=== PATIENT | male | born 1950 | race Caucasian/White ===

== ENCOUNTER 2016-09-02 09:28 | Inpatient (IN) | payer OTHER ==
[2016-09-02] VITALS (22 sets, daily range): BP systolic 107–152; BP diastolic 43–69; PULSE 72–98; RESP 12–20; O2SAT 96–100
[~2016-09-02] VITALS: Ht 188 cm; Wt 96.3 kg
[~2016-09-02 09:28] MED LIST: ASCO100089 PO; ASPI-973 PO; ATOR20TA PO; CALC0.257 PO; CLOP75TA3 PO; ERGO400T3 PO; EZET10TA PO; FEG324 PO; GLIM1TAB PO; LEVO88TA4 PO; LOSA25TA2 PO; METO25TA99 PO; OMEG-38 PO; PANT40TA3 PO; PUMP160C PO; UBID1CAP52 PO; WARF5TAB7 PO
--- NOTE | 2016-09-02 09:43 | ED.REPORT ---
HPI-Abd Pain M 40 and Over Date of Service Sep 02, 2016 ED Provider: Beto Lees DO 65 year old male with a history of GI bleeds presents to the ER complaining of two days of black stool. Associated symptoms include lightheadedness, SOB, productive cough, and foul smelling breath. Symptoms are similar to those associated with prior GI bleed. Typically he has one bowel movement daily, and reports one this morning with loose stool, though he states this is baseline. He also reports that a precancerous lesion was indicated in an upper endoscopy procedure in 2014. Daily medications include aspirin, Plavix, and heparin. Nursing Notes Stated Complaint: POSSIBLE GI BLEED Chief Complaint: Male Abdominal Pain Nursing Notes Reviewed: Yes Allergies: Coded Allergies: No Known Allergies (Unverified , 02/27/16) Scheduled Ascorbic Acid (Vitamin C) 1,000 Mg Tab.chew 1,000 MG PO DAILY Aspirin (Aspirin) 81 Mg Tablet 81 MG PO DAILY Atorvastatin (Lipitor) 20 Mg Tablet 20 MG PO HS Calcitriol (Rocaltrol) 0.25 Mcg Capsule 0.25 MG PO Mon, Mon, Mon Clopidogrel Bisulfate (Plavix) 75 Mg Tablet 75 MG PO DAILY Ergocalciferol (Vitamin D2) (Vitamin D) 400 Unit Tablet 400 UNIT PO DAILY Ezetimibe (Zetia) 10 Mg Tablet 10 MG PO HS Ferrous Gluconate (Ferrous Gluconate) 324 Mg Tab 324 MG PO BID Glimepiride (Glimepiride) 1 Mg Tablet 0.5 MG PO DAILYAC Levothyroxine (Levothyroxine) 88 Mcg Tablet 88 MCG PO DAILY Losartan Potassium (Cozaar) 25 Mg Tablet 25 MG PO BID Metoprolol Succinate ER (Metoprolol Succinate ER) 25 Mg Tab.er.24h 25 MG PO BID [place]-3/Dha/Epa/Fish Oil (Fish Oil 1,000 mg Softgel) 1 Each Capsule 1 EACH PO am [place]-3/Dha/Epa/Fish Oil (Fish Oil 1,000 mg Softgel) 1 Each Capsule 2 EACH PO daily pm Pantoprazole DR (Pantoprazole DR) 40 Mg Tablet.dr 40 MG PO DAILY Pumpkin Seed Oil/Saw [place] (Saw [place] 160 mg Softgel) 160 Mg Capsule 160 MG PO DAILY Ubidecarenone/Vit E Acetate (Co Q-10 100 mg Softgel) 1 Each Capsule 2 TAB PO DAILY Warfarin Sodium (Warfarin Sodium) 5 Mg Tablet 5 MG PO ASDIRECTED take on sun,,thurs Warfarin Sodium (Warfarin Sodium) 5 Mg Tablet 7.5 MG PO ASDIRECTED take on mon, wed, fri, sat General Time Seen by MD: 09:42 Chief Complaint Other (Black Stool) Hx Obtained From: Patient Arrived By: Ambulance, Walk-in Sudden in Onset?: No Onset Occurred: 2 days ago Symptom Duration: Since onset Similar Sx Previous: Yes Past Medical History Past Medical History 1. Atrial fibrillation. 2. Diabetes mellitus type II. 3. Hyperlipidemia. 4. Hypertension. 5. Hypothyroidism. 6. Depression and anxiety. 7. Hodgkin's lymphoma in remission. 8. Essential tremor. 9. Skin cancer. Reports: Cancer, Coronary artery disease Past Surgical History 1. 21 cardiac stents. 2. CABG (2001). 3. [address] Shravan's aortic valve replacement. 4. Gamma knife radiation for essential tremor. Family History Mother with breast cancer. Father with diabetes mellitus type II. Sister who is healthy. 3 daughters one of which has an essential tremor. Smoking History Former Smoker Social History Alcohol Use: "Social" Other Social History: Good social support, , Local resident Ambulatory Status Independent Review of Systems Review of Systems Note: +Foul Smelling Breath Respiratory: Reports: Prod cough, clear, Shortness of breath Cardiovascular: Denies: Chest pain GI: Reports: Bloody/tarry stool, Melena, Denies: Abdominal pain, Diarrhea, Nausea, Vomiting Complete sys rev & neg: except as marked. Neurologic: Reports: Dizziness, Lightheaded Physical Exam Initial Vital Signs Vital Signs (First) Date Time Temp Pulse Resp B/P Pulse Ox O2 Delivery O2 Flow Rate FiO2 09/02/16 09:34 36.4 86 18 139/62 100 Room Air Initial VS: Reviewed Head / Eyes: Atraumatic, Normocephalic Neck: Supple, Non-tender, Full range of motion Extremities: Vascular intact, Neuro intact, No swelling, No tenderness Skin: Warm, Dry, No cyanosis General/Constitutional: Awake, Alert, Well developed, Well nourished Respiratory / Chest: Breath sounds NL, Breath sounds = bilat, No respiratory distress, No rales, No rhonchi, No wheezing Cardiovascular: Heart rate NL, Regular rhythm, Heart sounds NL, Peripheral circulation NL Prominent click across precordium. Abdomen: Soft, Non-tender, No guarding, No rebound, No distention Rectal for Blood: Positive: Blood - occult heme +, Melena present Interpretation & Diagnostics Lab Results Interpretation Result Diagram: 09/02/16 1130 09/02/16 0956 Test 09/02/16 09:56 09/02/16 11:30 White Blood Count 12.1th/mm3 (3.8-10.1) Red Blood Count 3.13mil/mm3 (4.40-5.80) Mean Corpuscular Volume 93.0fL (81-100) Mean Corpuscular Hemoglobin 29.4pg (27.0-35.0) Mean Corpuscular Hemoglobin Concent 31.6% (32.0-37.0) Red Cell Distribution Width 15.3% (12.3-15.4) Platelet Count 322bil/L (150-400) Neutrophils (%) (Auto) 81.4% (40-74) Lymphocytes (%) (Auto) 9.2% (14-46) Monocytes (%) (Auto) 6.6% (4-12) Eosinophils (%) (Auto) 2.2% (0-5) Basophils (%) (Auto) 0.4% (0-3) Prothrombin Time 29.5sec (8.1-12.5) Prothromb Time International Ratio 2.70ratio Sodium Level 139mEq/L (134-144) Potassium Level 5.3mEq/L (3.5-5.2) Chloride Level 105mEq/L (97-108) Carbon Dioxide Level 21mmol/L (18-29) Blood Urea Nitrogen 72mg/dL (8-27) Creatinine 1.75mg/dL (0.76-1.27) Estimat Glomerular Filtration Rate 42mL/min (>59) Glucose Level 193mg/dL (60-99) Calcium Level 9.0mg/dL (8.5-10.1) Magnesium Level 2.0mg/dL (1.6-2.6) Total Bilirubin 0.2mg/dL (0.0-1.2) Aspartate Amino Transf (AST/SGOT) 18U/L (0-50) Alanine Aminotransferase (ALT/SGPT) 16U/L (0-44) Alkaline Phosphatase 89U/L (25-160) Total Protein 7.1g/dL (6.4-8.4) Albumin 4.0g/dL (3.4-5.0) Hemoglobin 8.6g/dL (13.8-17.2) Hematocrit 27.4% (41.0-50.0) ECG Interpretation ECG Interpretation: Sinus rhythm, rate [address] elevation Time: 10:15 Interpreted by: ED physician X-Ray Chest Interpretation Chest Xray Interpretation: IMPRESSION: No acute cardiopulmonary disease. Dictated by: Abelardo Urena RRA Interpreted: Grace Jaime MD on 09/02/2016 at 11:29 Transcribed by: JENNIFER on 09/02/2016 at 11:29 View: Portable, 1 view Interpretation / Wet Read by: Interpret - Radiologist Re-Eval/Medical Decision Med Decision/Clinical Course Upper GI bleeding with warfarin induced coagulopathy and additionally Plavix and aspirin. Patient will be admitted. Both GI and cardiology are consulted. Patient will be admitted. Fresh frozen plasma initiated in the ER. Source of Hx: Old records Time of Eval: 10:55 Re-Evaluation/Progress Note: Patient is resting comfortably. Discussed lab results and need for admission. Updated patient on the plan of care. All other questions addressed. Consultation #1: Referral / Consult Name: Maddie Aponte MD Consulted With: Hospitalist Call Returned at: 11:11 Multiple Slide Operator: Agrees with eval, Agrees with plan, Accepts admit Consultation #2: Referral / Consult Name: Carroll Sheriff MD Call Returned at: 11:14 Multiple Slide Operator: Will see patient Note: Discussed patient case with RASHAWN Winters. Will plan to scope today around 14:30-15:00. Hold off on reversing INR until more active bleeding or decreased Hgb under 7. Consultation #3: Referral / Consult Name: Evie Schwab MD Consulted With: Cardiology Call Returned at: 11:27 Note: Ok to reverse patient INR. Hold Plavix. Counseled Regarding: Diagnosis, Lab results, Need for admission Discharge & Departure Primary Impression: GI bleed Additional Impression: Warfarin-induced coagulopathy Disposition: ADMITTED TO HOSPITAL Vital Signs - All Vital Signs Date Time Temp Pulse Resp B/P Pulse Ox O2 Delivery O2 Flow Rate FiO2 09/02/16 10:07 80 16 136/49 100 Room Air 09/02/16 09:34 36.4 86 18 139/62 100 Room Air )( All Prior VS Reviewed: Yes Condition: Stable Referrals: OTHER,PHYSICIAN (PCP) (Family) Crit Care Except Billable Proc Time Spent: 30-74 minutes Services Performed: Patient management by me, Time spent at bedside, Reviewing test results Critical Care Notes: See MDM Scribe Attestation Portions of this note were transcribed by Louis Quintero. I, Dr. Lees, personally performed the history, physical exam and medical decision-making; I reviewed and confirmed the accuracy of the information in the transcribed note. Signed by: Manas Paulino, 09/02/2016 and 11:33 Beto Lees DO Sep 02, 2016 09:43 LOUIS QUINTERO Sep 02, 2016 09:48
[2016-09-02] MEDS ORDERED: Pantoprazole Inj 80 MG, Pharmacy To Mix 1 EA in 0.9% Sodium Chloride 80 ML IV ONE ×2 (10:05)
[2016-09-02] MEDS ORDERED: Pantoprazole 4 mg/mL 10 mL Inj IVPUSH ONE ×2 (10:05→11:05)
[2016-09-02 10:14] LABS: BASOPHILS % (AUTO) 0.4 % (0-3); EOSINOPHILS % (AUTO) 2.2 % (0-5); MONOCYTES % (AUTO) 6.6 % (4-12); Mean Corpuscular Hemoglobin 29.4 pg (27.0-35.0); NEUTROPHILS % (AUTO) 81.4 % (40-74); Platelet Count 322 bil/L (150-400)
[2016-09-02] MEDS ORDERED: Pantoprazole 8 mg/Hr Infusion IV ONE ×2 (10:15)
[2016-09-02 10:29] LABS: INR 2.7 ratio
[2016-09-02] MEDS ORDERED: 0.9% Sodium Chloride 1,000 ML IV SCH ×2 (10:50→12:03)
--- NOTE | 2016-09-02 11:29 | DRSVH ---
PROCEDURE: X-RAY CHEST ONE VIEW, PORTABLE ([id number]) INDICATIONS: dyspnea TECHNIQUE: One view of the chest was acquired. COMPARISON: [facility], CR, XR CHEST 1VW (PORTABLE), 04/28/2016, 7:51. FINDINGS: Surgical changes and devices: Post median sternotomy. Surgical clips projected over the right suprac lavicular fossa. Lungs and pleura: No pleural effusions or pneumothorax. Lungs are clear. Mediastinum: Mediastinal contours appear normal. Heart size is normal. Bones and chest wall: No suspicious bony lesions. Overlying soft tissues appear unremarkable. IMPRESSION: No acute cardiopulmonary disease. Dictated by: Abelardo SCHREIBER Interpreted: Grace Jaime MD on 09/02/2016 at 11:29 Transcribed by: JENNIFER on 09/02/2016 at 11:29 Approved by: Grace Jaime M.D. on 09/02/2016 at 15:21
[2016-09-02] MEDS ORDERED: Phytonadione (Adult) 10 MG in Dextrose 5%-Pha MIX 50 ML IV ONE (11:30)
[2016-09-02] MEDS ORDERED: Ondansetron 2 mg/mL 2 mL Inj IVPUSH PRN ×2 (11:50→15:50)
[2016-09-02] MEDS ORDERED: Alum-Mag Hydrox-Simeth 30 mL Suspension PO PRN (11:50)
[2016-09-02] MEDS ORDERED: 0.9% Sodium Chloride 100 ML ONE (11:56)
[2016-09-02] MEDS ORDERED: Glucose 40% Oral Gel 15 Gm Tube PO PRN ×2 (12:05→22:00)
[2016-09-02] MEDS ORDERED: EPINEPHrine 0.1 mg/mL 10 mL Syringe ONE (12:22)
[2016-09-02] MEDS ORDERED: PROP80CA PO (13:31)
[2016-09-02] MEDS ORDERED: LOSA50TA37 PO (13:31)
[2016-09-02] MEDS: Insulin Human REGular 300 Unit/3 mL Inj SUBQ SCH ×2 (14:30→20:33)
[2016-09-02 14:42] LABS: APPEARANCE,URINE HAZY (CLEAR,HAZY); COLOR,URINE STRAW (YELLOW); OCCULT BLOOD,URINE NEGATIVE (NEGATIVE); PH,URINE 5.5 (5.0-8.0); UROBILINOGEN,URINE NORMAL (NORMAL)
--- NOTE | 2016-09-02 15:20 | NUR ---
Arrived to Unit Pt arrived to [facility] room 2022 at ~1340 from ED. Pt denied pain, A&Ox3, VSS on RA. Pt kept NPO for endo procedure, GI assessed Pt upon arrival to unit, protonix continued at 10mL/Hr.
[2016-09-02] MEDS ORDERED: Lactated Ringer's 1,000 ML IV ONE (15:46)
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
[2016-09-02] MEDS ORDERED: MetoCLOpramide 5 mg/mL 2 mL Inj IVPUSH PRN (15:50)
--- NOTE | 2016-09-02 15:54 | PCM.HPMED ---
Subjective Date of Service Sep 02, 2016 Primary Provider: Admitting Physician: Maddie Aponte MD Primary Care Physician: Other,Physician Attending Physician: Maddie Aponte MD Chief Complaint: Melena H[facility] History of present illness 65-year-old male with prior upper GI bleed associated with Indocin, currently 2 days of melena associated with lightheadedness, on Plavix aspirin Coumadin for atrial fibrillation history/ extensive CAD/aortic valve. Patient denies excessive alcohol, current acid reflux, end-stage use, oral steroid use. Bad breath associated. 2014 EGD question of precancerous lesion. No vomiting In the ER vital signs stable, on room air. 1 L normal saline PPI drip. his Personal geology instructor indicated to discontinue Coumadin/Plavix/start vitamin K reversal/continue aspirin. 6 units FFP ordered, 2 units RBC ordered. Review of Systems - none of the following - F/C/sick contact / wt change/ LIMON / / sob / cough / cp / / bleeding/bruising anywhere else / leg swelling / yeast infections / rash Urine has abnormal odor Intermittent epistaxis FAMILY HX no GI issues SOCIAL HX marijuana, former smoker, social alcohol MEDICATIONS Nasal steroid Ascorbic Acid (Vitamin C) 1,000 Mg Tab.chew 1,000 MG PO DAILY Aspirin (Aspirin) 81 Mg Tablet 81 MG PO DAILY Atorvastatin (Lipitor) 20 Mg Tablet 20 MG PO HS Calcitriol (Rocaltrol) 0.25 Mcg Capsule 0.25 MG PO Mon, Wed, Fri Clopidogrel Bisulfate (Plavix) 75 Mg Tablet 75 MG PO DAILY Ergocalciferol (Vitamin D2) (Vitamin D) 400 Unit Tablet 400 UNIT PO DAILY Ezetimibe (Zetia) 10 Mg Tablet 10 MG PO HS Ferrous Gluconate (Ferrous Gluconate) 324 Mg Tab 324 MG PO BID Glimepiride (Glimepiride) 1 Mg Tablet 0.5 MG PO DAILYAC Levothyroxine (Levothyroxine) 88 Mcg Tablet 88 MCG PO DAILY Losartan Potassium (Cozaar) 25 Mg Tablet 25 MG PO BID Metoprolol Succinate ER (Metoprolol Succinate ER) 25 Mg Tab.er.24h 25 MG PO BID [place]-3/Dha/Epa/Fish Oil (Fish Oil 1,000 mg Softgel) 1 Each Capsule 1 EACH PO am [place]-3/Dha/Epa/Fish Oil (Fish Oil 1,000 mg Softgel) 1 Each Capsule 2 EACH PO daily pm Pantoprazole DR (Pantoprazole DR) 40 Mg Tablet.dr 40 MG PO DAILY Pumpkin Seed Oil/Saw [place] (Saw [place] 160 mg Softgel) 160 Mg Capsule 160 MG PO DAILY Ubidecarenone/Vit E Acetate (Co Q-10 100 mg Softgel) 1 Each Capsule 2 TAB PO DAILY Warfarin Sodium (Warfarin Sodium) 5 Mg Tablet 5 MG PO ASDIRECTED take on sun,,th Warfarin Sodium (Warfarin Sodium) 5 Mg Tablet 7.5 MG PO ASDIRECTED Past Medical/Surgical HX Hypothyroidism Dysphagia COLON Polyps acid reflux hemorrhoids, prior Indocin-related GI bleed [facility], 2014 Type II diabetes, CABG 3, coronary stent multiple, 3. [address] Shravan's aortic valve replacement. Gamma knife radiation for essential tremor. Atrial fibrillation status post ablation 2015//A flutter Amlodipine edema Pneumonia Depression/anxiety No prior abdominal operations Hodgkin's Allergies Coded Allergies: No Known Allergies (Unverified , 02/27/16) PMH Social History Hx Alcohol Use: Yes Alcoholic Drinks Per Day: Glass every other evening; one night/mo will 1 bottle Hx Substance Use: Yes (30+ yrs ago frequent marijuana user; Edible marijuana 2x in last 2 mo.s) Hx Tobacco Use: No Smoking Status: Never Smoker Exam Vital Signs Vital Sign - Last Date Time Temp Pulse Resp B/P Pulse Ox O2 Delivery O2 Flow Rate FiO2 09/02/16 15:16 36.9 76 18 131/54 100 Room Air Lab and Diagnostics Labs Exam on admission NAD A and O x 3 mood affect WNL NC/AT no icterus no injected eyes EOMI PERRL // no oral lesions / hearing intact Supple neck CTAB equal chest rise / no accessory muscle use / speaks in full sentences / no rrw RRR S1 S2 / no mrg / 2+ radial pulses Soft nt nd + BS no hepatosplenomegaly trace edema no cyanosis no ecchymosis of lower extremities No rash / no jaundice WEI Chest x-ray no acute process INR 2.7 UA negative for infection Result Diagram: 09/02/16 1430 09/02/16 0956 Assessment & Plan Active issues and reason for admission 65-year-old male with recurrent upper GI bleed, demonstrated by melena 2 days, anticoagulated, hemodynamically stable. -- Continue aspirin, hold Plavix and Coumadin, 6 units FFP, 2 units RBC, ER doctor discussed this with his personal geology instructor -- Dr. Toledo planning to do EGD on the patient possibly -- Serial INR/hemoglobin/troponin Prerenal SALINAS -- Multiple Units of blood Chronic issues known prior to admission, present on admission Hypothyroidism dysphagia COLON Polyps acid reflux hemorrhoids, prior Indocin-related GI bleed Type II diabetes, CABG 3, coronary stent multiple, 3. [address] Shravan's aortic valve replacement. Gamma knife radiation for essential tremor. Atrial fibrillation status post ablation 2015//A flutter Pneumonia Depression/anxiety No prior abdominal operations Hodgkin's -- Resume all home medications//sliding scale insulin Diet clear DVT prophylaxis reversing // scd Code full Disposition inpatient Assessment and plan were discussed with patient Maddie Aponte MD Sep 02, 2016 15:54
[2016-09-02] MEDS ORDERED: Propofol 10,000 mCg/mL 20 mL Inj ONE (16:00)
[2016-09-02] MEDS: Lactated Ringer's 1,000 ML IV SCH ×2 (16:00→17:38)
--- NOTE | 2016-09-02 17:01 | PCM.CHPMED ---
Subjective Date of Service: Sep 02, 2016 Provider requesting consult: Maddie Aponte MD Primary Physician: Admitting Physician: Maddie Aponte MD Primary Care Physician: Other,Physician Attending Physician: Maddie Aponte MD Chief Complaint: Chief Complaint: Melena History of Present Illness: Patient is a 65 year old male with a history of recurrent GI bleed, CAD with CABG and multiple stents, and aortic valve replacement on aspirin, Plavix, and warfarin presents to the ER complaining of two days of black tarry stool. Associated symptoms include lightheadedness, SOB, nausea, productive cough, and foul smelling breath. Symptoms are similar to those associated with prior GI bleed. He reports that he has had a cough and SOB for the last 5 weeks following a bout of influenza. Typically he has one bowel movement daily, and reports one this morning with loose stool, though he states this is baseline. Last colonoscopy 2 years ago, which was normal with follow up in 10 years. He reports that a precancerous lesion was indicated in an upper endoscopy procedure in 2014. No family history of colon cancer, Crohn's, UC, or celiac disease. Denies NSAID or Tylenol use. He reports drinking 1 glass of wine daily. He reports he had Hodgkin lymphoma in the 1980s and had radiation treatment, which eventually caused cardiomyopathy and neck issues. Review of Systems: Comprehensive review of systems conducted and was negative except for the pertinent positives listed above. PMH Past Medical History Hypothyroidism Dysphagia Polyps acid reflux hemorrhoids prior Indocin-related GI bleed [facility], 2015 Type II diabetes, CABG 3, coronary stent multiple, 3. [address] Shravan's aortic valve replacement. Gamma knife radiation for essential tremor. Atrial fibrillation status post ablation 2015//A flutter Amlodipine edema Pneumonia Depression/anxiety Hodgkin's Bedside Blood Glucose: 118 Allergies: Coded Allergies: No Known Allergies (Unverified , 02/27/16) Social History Hx Alcohol Use: YesAlcoholic Drinks Per Day: Glass every other evening; one night/mo will 1 bottleHx Substance Use: Yes (30+ yrs ago frequent marijuana user; Edible marijuana 2x in last 2 mo.s)Hx Tobacco Use: No Smoking Status: Never Smoker Exam Vital Signs Vital Sign - Last Date Time Temp Pulse Resp B/P Pulse Ox O2 Delivery O2 Flow Rate FiO2 09/02/16 15:16 36.9 76 18 131/54 100 Room Air Additional Information: General: Alert, Oriented X3, Cooperative, No Acute Distress Head: Normocephalic, atraumatic. External ears normal. Eyes: PERRLA, EOMI. Anicteric sclerae. Slightly pale conjunctivae. Mouth: Mouth Normal, Mucous Membranes Moist/[place] Neck: Neck supple with full range of motion. Chest & Lungs: Clear to auscultation bilaterally with no crackles, wheezes, or rhonchi. Cardiovascular: Regular Rate/Rhythm, Normal S1, Normal S2, Systolic click. Abdomen: Non-tender, Non-distended, No masses, Normoactive bowel tones, Soft Musculoskeletal: Normal Range of Motion Extremities: No cyanosis/clubbing/edema bilaterally Neurological: Grossly Neurologically Intact, Normal Speech Lab and Diagnostics Result Diagram: 09/02/16 1430 09/02/16 0956 Assessment & Plan Assessment Patient is a 65 year old male with a history of recurrent GI bleed, CAD with CABG and multiple stents, and aortic valve replacement on aspirin, Plavix, and warfarin presents to the ER complaining of two days of black tarry stool. Admitted for acute upper GI bleed and anemia. Acute upper GI bleed. - Pt is on multiple blood thinners - ASA, Plavix, warfarin. INR was 2.7 on admission. Presented with black tarry stool but no hematemesis or vomiting. He had been coughing for several weeks. Will perform EGD to search for source of bleed. He denies excessive alcohol use or reflux symptoms - EGD scheduled - Continue to monitor stool for signs of acute bleed. - Protonix gtt Acute blood loss anemia. - Hb 9.2 on admission --> 7.7 now. Secondary to upper GI bleed. - Continue to monitor H&H - Transfuse as necessary Elevated INR, acute. - INR was 2.7 on admission. Given 2U FFP and Vit K in the ED. Pt on warfarin. - Monitor INR - Hold warfarin Problems: Attending Statement Patient seen and examined today. Agree with assessment and plan as described above by Dr Hooker. Juan Carlos Hooker Sep 02, 2016 16:48 Carroll Sheriff MD Sep 02, 2016 17:19
[2016-09-02] MEDS ORDERED: 0.9% Sodium Chloride 250 ML ONE (17:24)
[2016-09-02] MEDS: Insulin LISPRO 300 Unit/3 mL Inj SUBQ SCH ×2 (17:30→21:43)
--- NOTE | 2016-09-02 19:41 | ENDO ---
[address] [address] ENDOSCOPY PROCEDURE PATIENT: JAIDEN RODAS : 1950 MR#: [id number] ADMIT: 09/02/2016 JOB ID: [id number] PROCEDURE: Esophagogastroduodenoscopy with epinephrine injection for hemostasis. INDICATIONS: A 65-year-old male with presentation concerning for upper GI bleeding. The patient is currently taking Coumadin, Plavix, and aspirin. No other nonsteroidal anti-inflammatories. EQUIPMENT: Standard upper endoscope. SEDATION: Monitored anesthesia as provided by Dr. Justin Sellers. COMPLICATIONS: None identified. PROCEDURE INFORMATION: After the risks and benefits were explained, written and verbal informed consent was obtained. The patient was brought into the endoscopy suite and placed into the left lateral decubitus position. Sedation was achieved using the above-stated medications with the addition of oxygen via nasal cannula. The scope was introduced into the mouth through the bite block and advanced under direct visualization through the oropharynx, esophagus, stomach, and onto the second portion of the duodenum. The scope was slowly withdrawn to carefully examine the mucosa for any defects or lesions. Retroflexed views were accomplished in the stomach, the stomach was decompressed, and the scope ultimately removed from the patient, who tolerated the procedure reasonably well. FINDINGS: 1. Duodenum: No source of bleeding identified. The mucosa appeared generally normal. 2. Stomach: The patient had a moderate amount of fresh blood and blood clot material. Much of this was sufficiently congealed that we could not aspirate it up through the accessory channel of the scope. Within the limitations of the of mucosal visibility, I did not see any source of active bleeding in the stomach. No ulcers. No outlet obstruction. No mass lesions apparent. 3. Esophagus: The patient had a small sliding hiatal hernia. At the level of the GE junction, on the esophageal side, was what appeared to be a fairly classic appearing Ronda-Layne tear with active bleeding. This was located in approximately the two o'clock location. We injected with dilute 1:10,000 epinephrine all around this lesion and provided appropriate blanching. With this maneuver all active bleeding ceased. I elected to pursue monotherapy here only, rather than pursue Endoclip (this would have been a very awkward position for clip placement). Gold probe could potentially exacerbate bleeding in the face of recent aspirin and Plavix use, etc. RECOMMENDATIONS: 1. Clear liquid diet this evening. 2. If the patient remains clinically stable, without signs of recurrent bleeding, diet can be advanced to a smoothie consistency/dysphagia diet tomorrow. 3. Continue to hold aspirin, Plavix, and Coumadin. 4. Based on the presence of active bleeding here today, I have called for another 2 units of fresh frozen plasma to be administered right now. 5. Continue PPI drip. 6. Will continue to follow.
[2016-09-02 21:21] LABS: INR 1.38 ratio
[2016-09-02] MEDS ORDERED: Insulin Human REGular-Omnicell 100 Unit/mL SUBQ PRN (22:00)
[2016-09-02] MEDS ORDERED: Albuterol 2.5 mg/3 mL Inhalation Solution NEB PRN (22:00)
[2016-09-02] MEDS ORDERED: 0.9% Sodium Chloride 250 ML IV ONE (22:05)
[2016-09-03] VITALS (9 sets, daily range): BP systolic 109–151; BP diastolic 43–67; PULSE 71–81; RESP 16–20; O2SAT 97–100
[2016-09-03] MEDS: Insulin Human REGular 300 Unit/3 mL Inj SUBQ SCH ×2 (01:40→08:09)
[2016-09-03 03:54] LABS: Mean Corpuscular Hemoglobin 29.7 pg (27.0-35.0); Mean Corpuscular Volume 92.6 fL (81-100)
[2016-09-03 04:10] LABS: INR 1.22 ratio
--- NOTE | 2016-09-03 05:40 | NUR ---
P: s/p EGD, low Hgb I: received 2 FFP and unit of PRBCs tonight on floor E:A/O. Denies pain, dyspnea, N/V. Tolerating blood products and clear liquid diet. Tolerates being up to the BR. Two tarry formed stools. Voiding via urinal. Tele SR. VSS. RA sats in the mid 90s. RR teens. Both and pt concern w/ getting pt back on anti coagulation meds r/t valve. Explain need to make sure no further active bleeding and anti coag meds will be restarting per . Addendum: 09/03/16 at 0551 by SALNIA PARKS RN Per pt is taking inderal every AM not TID.... Held inderal HS r/t SBP < 140.
[2016-09-03] MEDS: Insulin LISPRO 300 Unit/3 mL Inj SUBQ SCH ×4 (08:00→21:50)
[2016-09-03] MEDS ORDERED: Pantoprazole 8 mg/Hr Infusion IV ONE ×4 (11:20→22:30)
--- NOTE | 2016-09-03 13:05 | PCM.PNMED ---
Subjective Date of Service Sep 03, 2016 Subjective He is doing well today. No nausea. No vomiting. He has had 3 bowel movements the first to dark the last time clearing. No difficulty with palpitations chest pain or dyspnea. Exam Vital Signs Vital Sign - Last Date Time Temp Pulse Resp B/P Pulse Ox O2 Delivery O2 Flow Rate FiO2 09/03/16 12:20 36.5 71 16 131/67 99 Room Air 09/02/16 16:50 4 Intake and Output 09/02/16 09/02/16 09/03/16 Cumulative From/Thru 15:00 23:00 07:00 09/02/16 09:34 - 09/03/16 05:36 Intake Total 1000 ml 984 ml 2599 ml 4583 ml Output Total 500 ml 2250 ml 2750 ml Balance 1000 ml 484 ml 349 ml 1833 ml Intake Oral 0 ml 2080 ml 2080 ml IV Total 1000 ml 556 ml 194 ml 1750 ml Packed Cells 325 ml 325 ml FFP 428 ml 428 ml Output Urine Total 500 ml 2250 ml 2750 ml # Bowel Movements 0 2 2 Exam Alert oriented 3, no distress. Fluent speech Anicteric sclera Neck is supple. Lungs are clear, normal effort. Heart is regular without murmur gallop or rub Abdomen is soft nondistended Extremities free of edema. IVs and Medications Medications Reviewed: Medications were reviewed in detail Lab and Diagnostics Result Diagram: 09/03/1633909/03/16 034 Assessment & Plan 1. Upper GI bleed, POA. Endoscopy reveals a Ronda-Layne tear which was treated with epinephrine injection. Plan is to slowly advance side of the next 24 hours and continue Protonix twice a day 2. Acute blood loss anemia, POA. The patient has clinical resolution of bleeding we will follow him with serial hematocrits. 3. SALINAS, likely secondary to find depletion with his acute GI bleed and anemia. Follow renal indices. The patient was fluid resuscitated and given blood products. 4. Mechanical aortic valve. POA. The patient is on chronic Coumadin. We will try to resume this within a short period time to mitigate against risks of thrombosis. Chronic issues known prior to admission, present on admission Hypothyroidism dysphagia COLON Polyps acid reflux hemorrhoids, prior Indocin-related GI bleed Type II diabetes, CABG 3, coronary stent multiple, 3. [address] Shravan's aortic valve replacement. Gamma knife radiation for essential tremor. Chronic Atrial fibrillation status post ablation 2015//A flutter Pneumonia Depression/anxiety No prior abdominal operations Hodgkin's -- Resume all home medications//sliding scale insulin Code full Disposition inpatient, with anticipated discharge home on Monday. Pain Evaluation: Adequate Pain Control VTE Mechanical Devices: Intermittant Pneumatic CD Resuscitation Status: CPR: Attempt Resuscitation Time spent 30 minutes Boyd Morse MD Sep 03, 2016 13:05
--- NOTE | 2016-09-03 13:22 | PROG NOTE ---
[address] [address] PROGRESS NOTE PATIENT: JAIDEN RODAS : 1950 MR#: [id number] ADMIT: 09/02/2016 JOB ID: [id number] DATE: 09/03/2016 SUBJECTIVE: The patient had a couple of episodes of melena last night and one smaller, slightly less dark stool this morning. He has not had any nausea or vomiting. He has tolerated a clear liquid diet. Blood count yesterday evening went down to a hemoglobin of 7.2. He received 1 unit of packed RBCs overnight. Cardiology has requested that he be restarted on his aspirin this morning and that was accomplished. His Plavix and Coumadin are on hold. His INR this morning was 1.22. OBJECTIVE: The patient is alert, oriented, appropriate, cooperative, conversational. Family at the bedside. Blood pressure 124/48, pulse 74, breathing 16, 99% on room air, afebrile 36.7. LABORATORY: As above. BUN is down to 61. Creatinine is 1.75. Platelets are 231. White count is 11.1, hemoglobin this morning 7.6. Hematocrit 23.7. ASSESSMENT AND RECOMMENDATIONS: This is a 65-year-old male with a history of prosthetic aortic valve, coronary artery disease, and underlying diabetes who has been treated with aspirin, Plavix, and Coumadin. Secondary to a self-limited upper respiratory tract infection with impressive coughing symptoms in the last couple of weeks, he appears to have developed a Ronda-Layne tear. This was treated with monotherapy (i.e. dilute epinephrine injection) yesterday afternoon. Clinically he does not appear to have any ongoing active hemorrhage. I certainly recognize the need to get him back up onto an appropriate dose of warfarin. From my perspective, I think it would be fine to restart his Coumadin today. I would recommend that he be offered one more unit of packed RBCs transfusion. In that he is back on aspirin already, I would recommend a PPI drip continue until tomorrow morning and then he be transitioned to 40 mg Protonix twice daily. I would recommend he be on twice daily therapy for seven days and then transitioned down to perhaps 20 mg of Protonix daily indefinitely while he is on such a potent anticoagulation anti-platelet regimen.
--- NOTE | 2016-09-03 15:02 | NUR ---
Social Work Note: Data:Tati Adame is a 65 y/o male who was admitted for GI Bleed - Warfarin induced per H&P. Pt's insurance is [employer]. EMR reviewed. Pt resides at home with his where he remains independent with ADLS. Pt has been up independent in his room. No anticipated discharge needs. SW will continue to follow if needs arise. Assessment:Pt who is independent at baseline. Plan:Pt to discharge home when medically stable via POV. No anticipated discharge needs. SW will continue to follow if needs arise. Gabbie Neves, JOINTER OPERATOR
--- NOTE | 2016-09-03 18:49 | NUR ---
anti-coag Pt ordered to resume aspirin this am, spoke with GI and instructed to continue with administration. Later in the shift, GI verbalized that Pt would be ok to resume home coumadin dose this evening, information relayed to hospitalist and pharmacy dosing resumed, medication to be administered once received from pharmacy.
[2016-09-04] VITALS (8 sets, daily range): BP systolic 125–160; BP diastolic 54–69; PULSE 73–89; RESP 12–20; O2SAT 99–100
--- NOTE | 2016-09-04 04:45 | NUR ---
Insomnia/Itching/GI Patient feeling restless and itchy early in the evening, unable to fall asleep. MD paged RE: insomnia and itching; 5mg melatonin given per new order. Patient later reported feeling drowsy but still itchy and unable to settle. MD paged again; no new orders received. Patient had one small, tarry, formed stool overnight. No other signs of continued bleeding. Continue to monitor.
[2016-09-04] MEDS: Pantoprazole 40 mg ER24 Tablet PO SCH ×2 (07:53→16:32)
[2016-09-04] MEDS: Insulin LISPRO 300 Unit/3 mL Inj SUBQ SCH ×4 (07:53→21:26)
[2016-09-04 08:40] LABS: INR 1.05 ratio
[2016-09-04] MEDS ORDERED: Heparin 5,000 Unit/mL Inj IVPUSH ONE (11:05)
--- NOTE | 2016-09-04 11:07 | PCM.PNMED ---
Subjective Date of Service Sep 04, 2016 Subjective He is doing well. No chest pain or shortness of breath. No abdominal pain nausea vomiting or cough. No bowel movement. He feels somewhat weak but is stable. Exam Vital Signs Vital Sign - Last Date Time Temp Pulse Resp B/P Pulse Ox O2 Delivery O2 Flow Rate FiO2 09/04/16 09:26 89 09/04/16 07:45 36.6 12 130/59 99 Room Air 09/02/16 16:50 4 Intake and Output 09/03/16 09/03/16 09/04/16 Cumulative From/Thru 15:00 23:00 07:00 09/02/16 09:34 - 09/04/16 06:35 Intake Total 100 ml 1137 ml 5820 ml Output Total 350 ml 3100 ml Balance 100 ml 787 ml 2720 ml Intake Oral 1025 ml 3105 ml IV Total 100 ml 112 ml 1962 ml Packed Cells 325 ml FFP 428 ml Output Urine Total 350 ml 3100 ml # Voids 2 2 # Bowel Movements 1 3 Exam Alert oriented in no acute distress. Anicteric sclera. Neck is supple. Lungs are clear with normal effort. Heart is regular without murmur gallop or rub Abdomen soft nondistended. Extremities are free of edema. IVs and Medications Medications Reviewed: Medications were reviewed in detail Lab and Diagnostics Result Diagram: 09/04/16 0813 09/03/16 0340 Assessment & Plan 1. Upper GI bleed, POA. Endoscopy reveals a Ronda-Layne tear which was treated with epinephrine injection. Plan is to slowly advance side of the next 24 hours and continue Protonix twice a day 2. Acute blood loss anemia, POA. The patient has clinical resolution of bleeding we will follow him with serial hematocrits. This is stable. 3. SALINAS, likely secondary to find depletion with his acute GI bleed and anemia. Follow renal indices. The patient was fluid resuscitated and given blood products. He likely has in fact chronic kidney disease stage III and this may be his baseline creatinine. 4. Mechanical aortic valve. POA. The patient is on chronic Coumadin. We will try to resume this within a short period time to mitigate against risks of thrombosis. I discussed with the patient today the prudence of a bridging heparin drip to mitigate thrombosis of the aortic valve. The patient is in agreement. He is not really a great candidate for home Lovenox with his chronic kidney disease and abnormal kidney function. We will start him on a heparin bridge and continue to load his Coumadin in the hospital. Chronic issues known prior to admission, present on admission Hypothyroidism dysphagia COLON Polyps acid reflux hemorrhoids, prior Indocin-related GI bleed Type II diabetes, controlled CABG 3, coronary stent multiple, 3. [address] Shravan's aortic valve replacement. Gamma knife radiation for essential tremor. Chronic Atrial fibrillation status post ablation 2015//A flutter Pneumonia Depression/anxiety No prior abdominal operations Hodgkin's -- Resume all home medications//sliding scale insulin Code full Disposition inpatient, with anticipated discharge home on Monday. Pain Evaluation: Adequate Pain Control VTE Mechanical Devices: Intermittant Pneumatic CD Resuscitation Status: CPR: Attempt Resuscitation Time spent 30 minutes Boyd Morse MD Sep 04, 2016 11:06
[2016-09-04] MEDS: Heparin 25K Unit/500mL 0.45 NS 25,000 UNIT in IV Premix 1 EACH IV SCH (11:16)
[2016-09-04] MEDS ORDERED: diphenhydrAMINE 50 mg Capsule PO PRN (11:35)
--- NOTE | 2016-09-04 19:19 | NUR ---
Heparin gtt Pt started on heparin gtt at 1000 units/Hr after confirming with MD and a 5000 unit bolus given. Q6 PTTs ordered with first due at 1700, lab had not come to draw Pt, lab notified, oncoming MAURIZIO RN notified. No overt signs of bleeding noted since initiating heparin gtt.
[2016-09-04] MEDS: Heparin 5,000 Unit/mL Inj IVPUSH PRN (20:33)
--- NOTE | 2016-09-04 20:58 | PROG NOTE ---
[address] [address] PROGRESS NOTE PATIENT: JAIDEN RODAS : 1950 MR#: [id number] ADMIT: 09/02/2016 JOB ID: [id number] DATE: 09/04/2016 SUBJECTIVE: No further clinical bleeding. The patient was restarted on aspirin, Coumadin and heparin drip for a subtherapeutic INR. He has tolerated a soft diet and requests advancement. OBJECTIVE: Vital signs are stable. The patient was in no distress. Conversational. LABS: Hematocrit is stable. INR was down this morning but, of course, he has been started on a heparin drip. ASSESSMENT AND RECOMMENDATIONS: A 65-year-old male with a Ronda-Layne tear. This was treated with monotherapy and he has clinically stopped bleeding with demonstration of stable blood count. I agree with full anticoagulation at this point plus the aspirin. It would be reasonable to perhaps hold off on restarting the Plavix for maybe another five days or so if that would be considered acceptable from a cardiology standpoint. I took the liberty of advancing his diet today and he has been converted over to oral PPI at this point. I will sign off for now from a GI standpoint. If there are any other questions or clinical concerns, please feel free to contact me at [phone] at any time.
[2016-09-05] VITALS (9 sets, daily range): BP systolic 116–165; BP diastolic 52–95; PULSE 69–74; RESP 16–18; O2SAT 96–100
[2016-09-05] MEDS: Heparin 5,000 Unit/mL Inj IVPUSH PRN ×3 (02:52→16:51)
--- NOTE | 2016-09-05 04:46 | NUR ---
Cardiac/Heparin gtt: Telemetry sinus rhythm with 1st degree block and IVCD. Denies chest pain. VSS. Heparin gtt infusing throughout shift, titrating per protocol. No overt signs of bleeding observed during shift. No bowel movements passed during shift.
[2016-09-05] MEDS: Insulin LISPRO 300 Unit/3 mL Inj SUBQ SCH ×4 (08:00→22:00)
[2016-09-05 08:19] LABS: INR 1.12 ratio
[2016-09-05] MEDS: Pantoprazole 40 mg ER24 Tablet PO SCH ×2 (08:36→16:34)
[2016-09-05] MEDS: Heparin 25K Unit/500mL 0.45 NS 25,000 UNIT in IV Premix 1 EACH IV SCH (11:07)
--- NOTE | 2016-09-05 11:21 | PCM.PNMED ---
Subjective Date of Service Sep 05, 2016 Subjective He is doing well. No difficulties overnight. He slept well. No nausea or vomiting. No chest pain. No neurologic symptoms. Exam Vital Signs Vital Sign - Last Date Time Temp Pulse Resp B/P Pulse Ox O2 Delivery O2 Flow Rate FiO2 09/05/16 11:06 74 09/05/16 08:25 36.6 16 130/64 99 Room Air 09/02/16 16:50 4 Intake and Output 09/04/16 09/04/16 09/05/16 Cumulative From/Thru 15:00 23:00 07:00 09/02/16 09:34 - 09/05/16 05:51 Intake Total 1165 ml 796 ml 7781 ml Output Total 1200 ml 500 ml 4800 ml Balance -35 ml 296 ml 2981 ml Intake Oral 1000 ml 540 ml 4645 ml IV Total 165 ml 256 ml 2383 ml Packed Cells 325 ml FFP 428 ml Output Urine Total 1200 ml 500 ml 4800 ml # Voids 2 # Bowel Movements 3 Exam Alert oriented, no distress. Neck supple. Lungs are clear, normal effort. Heart is regular without murmur Abdomen is soft nondistended Extremities are free of edema good pedal pulses Skin free of rash or lesions Anicteric sclera IVs and Medications Medications Reviewed: Medications were reviewed in detail Lab and Diagnostics Result Diagram: 09/05/1615409/05/16154 Assessment & Plan 1. Upper GI bleed, POA. No clinical evidence of rebleeding overnight. Continue Protonix twice a day. 2. Acute blood loss anemia, POA. The patient has clinical resolution of bleeding we will follow him with serial hematocrits. This is stable. 3. SALINAS, likely secondary to find depletion with his acute GI bleed and anemia. Follow renal indices. This appears to be relatively stable and may represent chronic kidney disease. 4. Mechanical aortic valve. POA. The patient is on chronic Coumadin. We will try to resume this within a short period time to mitigate against risks of thrombosis. I discussed with the patient today the prudence of a bridging heparin drip to mitigate thrombosis of the aortic valve. The patient is in agreement. He is not really a great candidate for home Lovenox with his chronic kidney disease and abnormal kidney function. We will start him on a heparin bridge and continue to load his Coumadin in the hospital. The patient' s pro time is low again today this likely relates to his vitamin K reversal given at the time of admission. We will continue to bridge him. Chronic issues known prior to admission, present on admission Hypothyroidism dysphagia COLON Polyps acid reflux hemorrhoids, prior Indocin-related GI bleed Type II diabetes, controlled CABG 3, coronary stent multiple, 3. [address] Shravan's aortic valve replacement. Gamma knife radiation for essential tremor. Chronic Atrial fibrillation status post ablation 2015//A flutter Pneumonia Depression/anxiety No prior abdominal operations Hodgkin's -- Resume all home medications//sliding scale insulin Code full Disposition inpatient, with anticipated discharge home on Monday. Pain Evaluation: Adequate Pain Control VTE Mechanical Devices: Intermittant Pneumatic CD Resuscitation Status: CPR: Attempt Resuscitation Time spent 20 minute Boyd Morse MD Sep 05, 2016 11:21
--- NOTE | 2016-09-05 14:15 | NUR ---
Transfer He was transferred from [facility] 2022 to [facility] about 1415. Report given to Alicia Jones RN. His belongings were taken with him and his went to his new room to see where he would be staying. Chart and meds transported to [facility].
--- NOTE | 2016-09-05 14:40 | NUR ---
Transfer to [facility] Pt transferred to [facility], room 248-1 from [facility]. Pt denies any pain or discomfort. Pt oriented to room, up ambulating in hallway with steady gait. Tele SR in the 60-80's. Cont to monitor.
--- NOTE | 2016-09-05 15:42 | PCM.PHAPRO ---
Progress Melena Warfarin Dosing Indication: Mechanical AVR Home dose 5mg SuTuTh, 7.5mg MoWeFrSa Admit Dx: Ronda Horace tear (repaired 09/02) History of recent dosing: Date Sep 03-Sep 04-Sep 05-Sep 06-Sep 07-Sep 08-Sep 09-Sep 10-Sep 11-Sep 12- Aug INR 2.7 1.22 1.05 1.12 INR change -0.17 0.07 Warf Dose vitamin k 10mg iv 5 mg 7.5 10mg x1 o/ Vit K 10mg given 09/02 resulting in full reversal, now on adjusted dose IV Heparin a/ Remains warfarin resistant, appropriately bridged with IV Heparin. Not suitable candidate for home LMWH p/ Bump dose of 10mg today, anticipate resuming home dosing tomorrow. Sixto Muñoz Pharm D Sep 05, 2016 15:42
[2016-09-06] VITALS (9 sets, daily range): BP systolic 129–172; BP diastolic 54–72; PULSE 68–89; RESP 16–20; O2SAT 92–100
--- NOTE | 2016-09-06 01:43 | NUR ---
Anticoagulation Pt asks, "Does this heparin gtt affect my INR" Explained to patient that the heparin keeps his blood "thin"until the coumadin reaches a therapeutic level. This is measured by the INR Pt verbalized understanding. Care oingoing
[2016-09-06] MEDS: Heparin 25K Unit/500mL 0.45 NS 25,000 UNIT in IV Premix 1 EACH IV SCH ×3 (04:41→23:45)
[2016-09-06] MEDS: Pantoprazole 40 mg ER24 Tablet PO SCH ×2 (07:18→16:58)
[2016-09-06] MEDS: Insulin LISPRO 300 Unit/3 mL Inj SUBQ SCH ×4 (07:21→20:54)
[2016-09-06 07:46] LABS: BASOPHILS % (AUTO) 0.7 % (0-3); EOSINOPHILS % (AUTO) 5.3 % (0-5); MONOCYTES % (AUTO) 7.9 % (4-12); Mean Corpuscular Hemoglobin 30.1 pg (27.0-35.0); Mean Corpuscular Volume 94.9 fL (81-100); NEUTROPHILS % (AUTO) 75.2 % (40-74); Platelet Count 268 bil/L (150-400)
[2016-09-06 08:00] LABS: INR 1.34 ratio
[2016-09-06 08:19] LABS: Magnesium 1.8 mg/dL (1.6-2.6)
--- NOTE | 2016-09-06 14:00 | PCM.PHAPRO ---
Progress Warfarin Management by Pharmacy: Indication: Mechanical AVR Home dose 5mg SuTuTh, 7.5mg MoWeFrSa Admit Dx: Ronda Vu tear (repaired 09/02) History of recent dosing: Date Sep 03-Sep 04-Sep 05-Sep 06-Sep 07-Sep 08-Sep 09-Sep 10-Sep 11-Sep 12- Aug INR 2.7 1.22 1.05 1.12 1.34 INR change -0.17 0.07 Warf Dose vitamin k 10mg iv 5 mg 7.5 10mg x1 7.5mg o/ Vit K 10mg given 09/02 resulting in full reversal, now on adjusted dose IV Heparin a/ Remains warfarin resistant, appropriately bridged with IV Heparin. Not suitable candidate for home LMWH p/ will give warfarin 7.5mg this evening and follow Irena Fernandez [facility] Sep 06, 2016 14:00
--- NOTE | 2016-09-06 14:13 | NUR ---
Social Work-readiness for discharge: Data:EMR Reviewed. Pt is on day 4 of hospitalization for GI Bleed per H&P. Pt is not medically stable, anticipate in the next day or two. Pt resides at home with his and is independent at baseline. Pt has been up independent in his room. No discharge needs identified. SW will continue to follow if needs arise. Assessment:Pt who is independent at baseline. Plan:Pt to discharge home when medically stable via POV. No discharge needs identified. SW will continue to follow if needs arise. RIVER Duff
[2016-09-06] MEDS ORDERED: Warfarin 5 MG, Warfarin 2.5 MG PO SCH ×2 (17:00)
--- NOTE | 2016-09-06 17:15 | PCM.PNMED ---
Subjective Date of Service Sep 06, 2016 Subjective denies any new issues/complaints. no melena or hematochezia Exam Vital Signs Vital Sign - Last Date Time Temp Pulse Resp B/P Pulse Ox O2 Delivery O2 Flow Rate FiO2 09/06/16 13:32 89 16 162/65 09/06/16 12:25 36.3 99 Room Air 09/02/16 16:50 4 Intake and Output 09/05/16 09/05/16 09/06/16 Cumulative From/Thru 15:00 23:00 07:00 09/02/16 09:34 - 09/06/16 06:41 Intake Total 1614 ml 986 ml 87529 ml Output Total 300 ml 5100 ml Balance 1314 ml 986 ml 5281 ml Intake Oral 1400 ml 600 ml 6645 ml IV Total 214 ml 386 ml 2983 ml Packed Cells 325 ml FFP 428 ml Output Urine Total 300 ml 5100 ml # Voids 4 3 9 # Bowel Movements 1 4 General: Alert, Cooperative Eyes: Scleral Anicteric Mouth: Mucous Membr Moist/[place] Neck: Supple Chest & Lungs: Chest Wall Normal, Clear to auscultation & percussion Cardiovascular: Regular Rate/Rhythm Abdomen: Non-tender, Non-distended, Normoactive bowel tones, Soft Extremities: No cyanosis/clubbing/edma bilat Neurological: Grossly Neurologically Intact, Normal Speech IVs and Medications Medications Reviewed: Medications were reviewed in detail Lab and Diagnostics Result Diagram: 09/06/1671909/06/16719 Assessment & Plan 65 year old male with a history of recurrent GI bleed, CAD with CABG and multiple stents, and aortic valve replacement on aspirin, Plavix, and warfarin presents to the ER complaining of two days of black tarry stool # Acute upper GI bleed, from Ronda-Layne tear, present on admission. appears resolved - post Esophagogastroduodenoscopy with epinephrine injection for hemostasis on - appreciate GI consult. will f/u w/ recs - resumed on anticoagulation with heparin to Coumadin bridge (as noted below) - tolerating resumption of ASA as well - will resume Plavix in 1-2 days or possibly on discharge - h/h remaining stable. continue to f/u - No clinical evidence of rebleeding overnight. - Continue Protonix twice a day. # Acute blood loss anemia, POA. The patient has clinical resolution of bleeding we will follow him with serial hematocrits. This is stable. - will consider at least one unit of PRBC transfusion given possible risk of bleeding on antiplatelet and anticoagulation. # SALINAS on top of chronic kidney disease, likely pre-renal. present on admission. - appears improving back to baseline - f/u # History of Mechanical aortic valve. POA. - On chronic Coumadin. - continue bridging heparin drip to Coumadin to mitigate thrombosis of the aortic valve. - not really a good candidate for home Lovenox with chronic kidney disease. - post Vitamin K reversal given at the time of admission. - f/u INR Chronic and stable issues known prior to admission, present on admission # Hypothyroidism # Type II diabetes, controlled - c/w ISS # CABG 3, coronary stent multiple, 3. [address] Shravan's aortic valve replacement. # Gamma knife radiation for essential tremor. # Chronic Atrial fibrillation status post ablation 2015//A flutter # Depression/anxiety # Hodgkin's Dispo: 2-3 days pending therapeutic INR VTE Mechanical Devices: Intermittant Pneumatic CD Resuscitation Status: CPR: Attempt Resuscitation Adeel Martinez Sep 06, 2016 17:15
[2016-09-06] MEDS: Heparin 5,000 Unit/mL Inj IVPUSH PRN (18:34)
--- NOTE | 2016-09-06 18:43 | NUR ---
Anticoag Pt INR 1.34 today, pt is not in therapeutic range yet. Pt continues to be on heparin gtt and coumadin
[2016-09-07] VITALS (11 sets, daily range): BP systolic 104–151; BP diastolic 44–68; PULSE 64–81; RESP 15–18; O2SAT 95–99
--- NOTE | 2016-09-07 05:45 | NUR ---
Cardiac/Coagulation Pt stable in a NSR with a slight 1st degree HB and IVCD. No signs or symptoms of bleeding; pt remains on a Heparin infusion at 1375 units/hour. No complaints throughout the night. Will cont. to monitor.
[2016-09-07 06:20] LABS: Mean Corpuscular Hemoglobin 29.8 pg (27.0-35.0); Mean Corpuscular Volume 95.8 fL (81-100)
[2016-09-07 06:46] LABS: INR 1.76 ratio
--- NOTE | 2016-09-07 07:41 | PCM.PHAPRO ---
Progress Warfarin Management by Pharmacy: Indication: Mechanical AVR Home dose 5mg SuTuTh, 7.5mg MoWeFrSa Admit Dx: Ronda Vu tear (repaired 09/02) History of recent dosing: Date Sep 03-Sep 04-Sep 05-Sep 06-Sep 07-Sep 08-Sep 09-Sep 10-Sep 11-Sep 12- Aug INR 2.7 1.22 1.05 1.12 1.34 1.76 INR change -0.17 0.07 Warf Dose vitamin k 10mg iv 5 mg 7.5 10mg x1 7.5mg o/ Vit K 10mg given 09/02 resulting in full reversal, now on adjusted dose IV Heparin a/ Remains warfarin resistant, appropriately bridged with IV Heparin. Not suitable candidate for home LMWH p/ inr is approaching goal, 1.76 today. will give warfarin 5mg this evening and follow Irena Fernandez [facility] Sep 07, 2016 07:41
[2016-09-07] MEDS: Insulin LISPRO 300 Unit/3 mL Inj SUBQ SCH ×4 (08:00→21:18)
[2016-09-07] MEDS: Pantoprazole 40 mg ER24 Tablet PO SCH ×2 (08:11→17:39)
[2016-09-07] MEDS: Propranolol LA 80 mg ER24 Capsule PO SCH (08:15)
[2016-09-07] MEDS ORDERED: 0.9% Sodium Chloride 100 ML ONE (13:14)
--- NOTE | 2016-09-07 15:06 | PCM.PNMED ---
Subjective Date of Service Sep 07, 2016 Subjective denies any new issues/complaints. no melena or hematochezia Exam Vital Signs Vital Sign - Last Date Time Temp Pulse Resp B/P Pulse Ox O2 Delivery O2 Flow Rate FiO2 09/07/16 13:29 36.4 67 18 125/63 09/07/16 12:53 98 Room Air 09/02/16 16:50 4 Intake and Output 09/06/16 09/06/16 09/07/16 Cumulative From/Thru 15:00 23:00 07:00 09/02/16 09:34 - 09/07/16 06:29 Intake Total 1479 ml 36324 ml Output Total 400 ml 5500 ml Balance 1079 ml 6360 ml Intake Oral 960 ml 7605 ml IV Total 519 ml 3502 ml Packed Cells 325 ml FFP 428 ml Output Urine Total 400 ml 5500 ml # Voids 9 # Bowel Movements 1 5 Exam General: Alert, Cooperative Eyes: Scleral Anicteric Mouth: Mucous Membr Moist/[place] Neck: Supple Chest & Lungs: Chest Wall Normal, Clear to auscultation bilat Cardiovascular: Regular Rate/Rhythm Abdomen: Non-tender, Non-distended, Normoactive bowel tones, Soft Extremities: No cyanosis/clubbing/edema bilat Neurological: Grossly Neurologically Intact, Normal Speech IVs and Medications Medications Reviewed: Medications were reviewed in detail Lab and Diagnostics Result Diagram: 09/07/16 0600 09/07/16 0600 Assessment & Plan 65 year old male with a history of recurrent GI bleed, CAD with CABG and multiple stents, and aortic valve replacement on aspirin, Plavix, and warfarin presents to the ER complaining of two days of black tarry stool # Acute upper GI bleed, from Ronda-Layne tear, present on admission. appears resolved - post Esophagogastroduodenoscopy with epinephrine injection for hemostasis on - appreciate GI consult. will f/u w/ recs - resumed on anticoagulation with heparin to Coumadin bridge (as noted below) - tolerating resumption of ASA as well - will resume Plavix in 1-2 days or possibly on discharge - h/h remaining stable. continue to f/u - No clinical evidence of rebleeding overnight. - Continue Protonix twice a day. # Acute blood loss anemia, POA. The patient has clinical resolution of bleeding we will follow him with daily hematocrits. This is stable. - transfuse one unit of PRBC given Hgb<8, h/o CAD and possible risk of rebleeding on antiplatelet and anticoagulation. # SALINAS on top of chronic kidney disease, likely pre-renal. present on admission. ongoing - f/u # History of Mechanical aortic valve. POA. - On chronic Coumadin. - continue bridging heparin drip to Coumadin to mitigate thrombosis of the aortic valve. - not really a good candidate for home Lovenox with chronic kidney disease. - post Vitamin K reversal given at the time of admission. - f/u INR Chronic and stable issues known prior to admission, present on admission # Hypothyroidism # Type II diabetes, controlled - c/w ISS # CABG 3, coronary stent multiple, 3. [address] Shravan's aortic valve replacement. # Gamma knife radiation for essential tremor. # Chronic Atrial fibrillation status post ablation 2015//A flutter # Depression/anxiety # Hodgkin's Dispo: 1-2 days pending therapeutic INR VTE Mechanical Devices: Intermittant Pneumatic CD Resuscitation Status: CPR: Attempt Resuscitation Adeel Martinez Sep 07, 2016 15:06
--- NOTE | 2016-09-07 17:21 | NUR ---
Blood Pt received one unit of blood today. Labs ordered for post blood transfusion.
--- NOTE | 2016-09-07 23:23 | NUR ---
Assumed care RN pulled assumed patient care agree w/prior assessment patient was sleeping w/no c/o.
[2016-09-08 00:42] VITALS: BP 121/64; PULSE 73; RESP 16; O2SAT 95
[2016-09-08 04:28] VITALS: PULSE 68
[2016-09-08 05:42] VITALS: BP 116/62; PULSE 72; RESP 17; O2SAT 96
[2016-09-08 06:57] LABS: BASOPHILS % (AUTO) 0.4 % (0-3); EOSINOPHILS % (AUTO) 5.4 % (0-5); MONOCYTES % (AUTO) 8.7 % (4-12); Mean Corpuscular Volume 94.3 fL (81-100); NEUTROPHILS % (AUTO) 74.7 % (40-74); Platelet Count 295 bil/L (150-400)
[2016-09-08 07:10] LABS: INR 2.2 ratio
[2016-09-08 08:00] VITALS: PULSE 67
[2016-09-08] MEDS: Insulin LISPRO 300 Unit/3 mL Inj SUBQ SCH (08:00)
--- NOTE | 2016-09-08 08:17 | PCM.PHAPRO ---
Progress Warfarin Management by Pharmacy: Indication: Mechanical AVR Home dose 5mg SuTuTh, 7.5mg MoWeFrSa Admit Dx: Ronda Vu tear (repaired 09/02) History of recent dosing: Date Sep 03-Sep 04-Sep 05-Sep 06-Sep 07-Sep 08-Sep 09-Sep 10-Sep 11-Sep 12- Aug INR 2.7 1.22 1.05 1.12 1.34 1.76 2.20 INR change -0.17 0.07 Warf Dose vitamin k 10mg iv 5 mg 7.5 10mg x1 7.5mg o/ Vit K 10mg given 09/02 resulting in full reversal, now on adjusted dose IV Heparin a/ Remains warfarin resistant, appropriately bridged with IV Heparin. Not suitable candidate for home LMWH p/ inr is at goal today, 2.20. will give warfarin 4mg this evening. expect heparin iv to be dc'ed tomorrow on day 2 of therapeutic inr Irena Fernandez [facility] Sep 08, 2016 08:17
[2016-09-08] MEDS: Propranolol LA 80 mg ER24 Capsule PO SCH (08:20)
[2016-09-08] MEDS: Pantoprazole 40 mg ER24 Tablet PO SCH (08:20)
[2016-09-08 09:27] VITALS: BP 118/64; PULSE 67; RESP 16; O2SAT 95
[2016-09-08] MEDS ORDERED: PANT40TA3 PO (11:07)
--- NOTE | 2016-09-08 11:14 | PCM.DIMED ---
Discharge Instructions Date of Service Sep 08, 2016 Dates of Hospitalization Sep 02, 2016 at 12:21 Discharge Diagnosis Discharge Diagnosis # Acute upper GI bleed, from Ronda-Layne tear, present on admission. Resolved - post Esophagogastroduodenoscopy with epinephrine injection for hemostasis on # Acute blood loss anemia, present on admission. - post one unit of packed red blood cell (PRBC) transfusion on 09/07/16 # Acute kidney injury on top of chronic kidney disease, present on admission. ongoing - will need close followup with primary care provider in coming days and for consideration of outpatient nephrology referral. # History of Mechanical aortic valve on chronic anticoagulation with Coumadin - post Vitamin K reversal given at the time of admission. - INR now within therapeutic range at 2.2 after bridging with IV Heparin. Chronic and stable issues known prior to admission, present on admission # Hypothyroidism # Type II diabetes, controlled # CABG 3, coronary stent multiple, St. Shravan's aortic valve replacement. # Gamma knife radiation for essential tremor. # Chronic Atrial fibrillation status post ablation # Depression/anxiety # Hodgkin's Diet Low fat, Low Sodium, Heart Healthy, Diabetic Activity No restrictions Call your provider Fever or Chills, Shortness of breath, Bleeding, Chest pain, Other (weakness, lightheadedness) Patient Instructions Seek immediate medical attention if any new or worsening signs or symptoms occur. Follow-up plan 1. Followup with [facility] tomorrow 09/09/16 as previously scheduled. 2. Followup with primary care provider in 4-7 days Adeel Martinez Sep 08, 2016 11:14
--- NOTE | 2016-09-08 11:53 | NUR ---
Discharge Patient INR 2.2 this AM. No s/sx bleeding. Denies pain/discomfort. VSS. Discharge instructions and paper rx printed and reviewed verbally with patient and . All questions answered. IV DC'd intact x2. Patient left unit via wc with all personal belongings accompanied by his . Patient discharged home via personal vehicle.
--- NOTE | 2016-09-08 17:33 | PCM.DC.MED ---
Discharge Summary Date of Service Sep 08, 2016 Dates of Hospitalization Date of Hospital Admission Sep 02, 2016 at 12:21 Date of Discharge: Sep 08, 2016 Providers: Admitting Physician: Maddie Aponte MD Primary Care Physician: Other,Physician Attending Physician: Maddie Aponte MD Diagnosis at Time of Discharge Diagnosis at Time of Discharge # Acute upper GI bleed, from Ronda-Layne tear, present on admission. Resolved - post Esophagogastroduodenoscopy with epinephrine injection for hemostasis on # Acute blood loss anemia, present on admission. - post one unit of packed red blood cell (PRBC) transfusion on 09/07/16 # Acute kidney injury on top of chronic kidney disease, present on admission. ongoing - will need close followup with primary care provider in coming days and for consideration of outpatient nephrology referral. # History of Mechanical aortic valve on chronic anticoagulation with Coumadin - post Vitamin K reversal given at the time of admission. - INR now within therapeutic range at 2.2 after bridging with IV Heparin. Chronic and stable issues known prior to admission, present on admission # Hypothyroidism # Type II diabetes, controlled # CABG 3, coronary stent multiple, [facility] Shravan's aortic valve replacement. # Gamma knife radiation for essential tremor. # Chronic Atrial fibrillation status post ablation # Depression/anxiety # Hodgkin's Consultations 1. GI Brief History 65 year old male with a history of recurrent GI bleed, CAD with CABG and multiple stents, and aortic valve replacement on aspirin, Plavix, and warfarin presents to the ER complaining of two days of black tarry stool Hospital Course # Acute upper GI bleed, from Ronda-Layne tear, present on admission. appears resolved - post Esophagogastroduodenoscopy with epinephrine injection for hemostasis on - appreciate GI consult. will f/u w/ recs - resumed on anticoagulation with heparin to Coumadin bridge (as noted below) - tolerating resumption of ASA as well - will resume Plavix on discharge per GI recommendation - h/h remaining stable. continue to f/u - No clinical evidence of rebleeding overnight. - Continue Protonix twice a day. # Acute blood loss anemia, POA. The patient has clinical resolution of bleeding. This is stable. - transfused one unit of PRBC on 09/07/16 given Hgb<8, h/o CAD and possible risk of rebleeding on antiplatelet and anticoagulation. # SALINAS on top of chronic kidney disease, likely pre-renal. present on admission. ongoing - further followup by primary care provider as outpatient and consideration of outpatient nephrology referral. # History of Mechanical aortic valve. POA. - On chronic Coumadin. - bridged with heparin during this hospital - not really a good candidate for home Lovenox with chronic kidney disease. - post Vitamin K reversal given at the time of admission. - INR by day of d/c 2.2 Chronic and stable issues known prior to admission, present on admission # Hypothyroidism # Type II diabetes, controlled - c/w ISS # CABG 3, coronary stent multiple, 3. [address] Shravan's aortic valve replacement. # Gamma knife radiation for essential tremor. # Chronic Atrial fibrillation status post ablation 2015//A flutter # Depression/anxiety # Hodgkin's by day of d/c lungs CTA bilat. Abdomen soft, nt, nd, +bs. pt reports his PCP is currently in [place], [place] and plans f/u early next week and follows his INR at Coumadin clinic in [place] which he plans to f/u tomorrow. Exam Vital Signs (Last) Date Time Temp Pulse Resp B/P Pulse Ox O2 Delivery O2 Flow Rate FiO2 09/08/16 09:27 36.3 67 16 118/64 95 Room Air 09/02/16 16:50 4 Test 09/02/16 14:17 09/02/16 20:22 09/05/16 01:55 09/06/16 07:20 Urine Color Straw (YELLOW) Urine Appearance Hazy (CLEAR,HAZY) Urine pH 5.5 (5.0-8.0) Urine Specific [place] 1.010 (1.003-1.035) Urine Protein Negativemg/dL (NEG,TRACE) Urine Glucose (UA) Negativemg/dL (NEGATIVE) Urine Ketones Negativemg/dL (NEGATIVE) Urine Occult Blood Negative (NEGATIVE) Urine Nitrite Negative (NEGATIVE) Urine Bilirubin Negative (NEGATIVE) Urine Urobilinogen Normalmg/dL (NORMAL) Urine Leukocyte Esterase Negative (NEGATIVE) Urine RBC 0-2/hpf (0-2) Urine WBC 0-5/hpf (0-5) Urine Epithelial Cells Occasional/hpf (NONE-MOD) Urine Crystals None seen (NONE SEEN) Urine Bacteria None/hpf (NONE-FEW) Urine Hyaline Casts None/lpf (NONE) Urine Granular Casts None seen (NONE SEEN) Urine Waxy Casts None seen (NONE SEEN) Urine Red Blood Cell Casts None seen (NONE SEEN) Urine White Blood Cell Casts None seen (NONE SEEN) Urine Mucus None seen (None Seen) Urine Trichomonas None seen (NONE SEEN) Urine Yeast None (NONE SEEN) Urinalysis Comment None Urine Culture Reflexed Not indicated Troponin T 0.010ug/L (0.0-0.011) Total Bilirubin 0.3mg/dL (0.0-1.2) Aspartate Amino Transf (AST/SGOT) 19U/L (0-50) Alanine Aminotransferase (ALT/SGPT) 14U/L (0-44) Alkaline Phosphatase 79U/L (25-160) Total Protein 6.4g/dL (6.4-8.4) Albumin 3.6g/dL (3.4-5.0) Magnesium Level 1.8mg/dL (1.6-2.6) Test 09/08/16 06:03 White Blood Count 11.7th/mm3 (3.8-10.1) Red Blood Count 2.80mil/mm3 (4.40-5.80) Hemoglobin 8.4g/dL (13.8-17.2) Hematocrit 26.4% (41.0-50.0) Mean Corpuscular Volume 94.3fL (81-100) Mean Corpuscular Hemoglobin 30.0pg (27.0-35.0) Mean Corpuscular Hemoglobin Concent 31.8% (32.0-37.0) Red Cell Distribution Width 15.9% (12.3-15.4) Platelet Count 295bil/L (150-400) Neutrophils (%) (Auto) 74.7% (40-74) Lymphocytes (%) (Auto) 10.5% (14-46) Monocytes (%) (Auto) 8.7% (4-12) Eosinophils (%) (Auto) 5.4% (0-5) Basophils (%) (Auto) 0.4% (0-3) Prothrombin Time 23.9sec (8.1-12.5) Prothromb Time International Ratio 2.20ratio Activated Partial Thromboplast Time 74.9sec (22.8-33.0) Sodium Level 141mEq/L (134-144) Potassium Level 4.4mEq/L (3.5-5.2) Chloride Level 106mEq/L (97-108) Carbon Dioxide Level 23mmol/L (18-29) Blood Urea Nitrogen 22mg/dL (8-27) Creatinine 1.82mg/dL (0.76-1.27) Estimat Glomerular Filtration Rate 40mL/min (>59) Glucose Level 118mg/dL (60-99) Calcium Level 8.4mg/dL (8.5-10.1) Discharge Medications Discharge Medications Ascorbic Acid (Vitamin C) 1,000 Mg Tab.chew 1,000 MG PO DAILY (Reported) Aspirin (Aspirin) 81 Mg Tablet 81 MG PO DAILY (Reported) Atorvastatin (Lipitor) 20 Mg Tablet 20 MG PO HS (Reported) Calcitriol (Rocaltrol) 0.25 Mcg Capsule 0.25 MG PO Mon, Wed, Fri (Reported) Clopidogrel Bisulfate (Plavix) 75 Mg Tablet 75 MG PO DAILY (Reported) Ergocalciferol (Vitamin D2) (Vitamin D) 400 Unit Tablet 400 UNIT PO DAILY ( Reported) Ezetimibe (Zetia) 10 Mg Tablet 10 MG PO HS (Reported) Ferrous Gluconate (Ferrous Gluconate) 324 Mg Tab 324 MG PO BID (Reported) Glimepiride (Glimepiride) 1 Mg Tablet 0.5 MG PO DAILYAC (Reported) Levothyroxine (Levothyroxine) 88 Mcg Tablet 88 MCG PO DAILY (Reported) Losartan Potassium (Losartan Potassium) 50 Mg Tablet 50 MG PO BID (Reported) [place]-3/Dha/Epa/Fish Oil (Fish Oil 1,000 mg Softgel) 1 Each Capsule 1 EACH PO am (Reported) [place]-3/Dha/Epa/Fish Oil (Fish Oil 1,000 mg Softgel) 1 Each Capsule 2 EACH PO daily pm (Reported) Pantoprazole DR (Pantoprazole DR) 40 Mg Tablet.dr 40 MG PO BIDAC Prescribed by: ADEEL MARTINEZ MD Propranolol ER (Inderal LA) 80 Mg Capsule 80 MG PO DAILY (Reported) Pumpkin Seed Oil/Saw [place] (Saw [place] 160 mg Softgel) 160 Mg Capsule 160 MG PO DAILY (Reported) Ubidecarenone/Vit E Acetate (Co Q-10 100 mg Softgel) 1 Each Capsule 2 TAB PO DAILY (Reported) Warfarin Sodium (Warfarin Sodium) 5 Mg Tablet 5 MG PO ASDIRECTED (Reported) take on mon,,thurs Warfarin Sodium (Warfarin Sodium) 5 Mg Tablet 7.5 MG PO ASDIRECTED (Reported) take on mon, wed, mon, sat Followup Plan Disposition: Home Follow-up plan 1. Followup with [facility] tomorrow 09/09/16 as previously scheduled. 2. Followup with primary care provider in 4-7 days Discharge Diet: Low fat, Low Sodium, Heart Healthy, Diabetic Discharge Activity: No restrictions Patient Instructions Seek immediate medical attention if any new or worsening signs or symptoms occur. Time spent 35 min Adeel Martinez Sep 08, 2016 17:33
== END 2016-09-08 11:45 | disposition home or self-care (01) | DRG 369 ==
LOC: SED 09:28 → OBSVTOIN 12:21 → PCC 12:21 → MOC 09-05 14:10
PROVIDERS: ADMIT Urology; ATTEND Urology
PROC: 30233K1 Transfusion of Nonautologous Frozen Plasma into Peripheral Vein, Percutaneous Approach (ICD-10-PCS; 2016-09-02)
PROC: 30233N1 Transfusion of Nonautologous Red Blood Cells into Peripheral Vein, Percutaneous Approach (ICD-10-PCS; 2016-09-02)
PROC: 0D548ZZ Destruction of Esophagogastric Junction, Via Natural or Artificial Opening Endoscopic (ICD-10-PCS; principal; 2016-09-02 14:30)
PROC: 30233N1 Transfusion of Nonautologous Red Blood Cells into Peripheral Vein, Percutaneous Approach (ICD-10-PCS; 2016-09-03)
PROC: 30233N1 Transfusion of Nonautologous Red Blood Cells into Peripheral Vein, Percutaneous Approach (ICD-10-PCS; 2016-09-07)
DX: K22.6 Gastro-esophageal laceration-hemorrhage syndrome (principal); D62 Acute posthemorrhagic anemia; E11.9 Type 2 diabetes mellitus without complications; E78.5 Hyperlipidemia, unspecified; E03.9 Hypothyroidism, unspecified; G25.2 Other specified forms of tremor; E87.5 Hyperkalemia; I25.10 Atherosclerotic heart disease of native coronary artery without angina pectoris; I48.2 Chronic atrial fibrillation; I12.9 Hypertensive chronic kidney disease with stage 1 through stage 4 chronic kidney disease, or unspecified chronic kidney disease; F41.8 Other specified anxiety disorders; N18.3 Chronic kidney disease, stage 3 (moderate); Z87.891 Personal history of nicotine dependence; Z95.5 Presence of coronary angioplasty implant and graft; Z79.82 Long term (current) use of aspirin; Z95.2 Presence of prosthetic heart valve; Z79.01 Long term (current) use of anticoagulants; Z85.71 Personal history of Hodgkin lymphoma

== ENCOUNTER 2017-01-22 15:33 | Inpatient (IN) | payer OTHER, MEDICARE ==
[2017-01-21 20:47] VITALS: BP 130/61; PULSE 69; RESP 22; O2SAT 99
[~2017-01-22] VITALS: Ht 188 cm; Wt 92.9 kg
[~2017-01-22 15:33] MED LIST changes: -LOSA25TA2 PO; +LOSA50TA37 PO; -METO25TA99 PO; +PROP80CA PO
[2017-01-22 15:37] VITALS: BP 113/55; PULSE 78; RESP 20; O2SAT 99
--- NOTE | 2017-01-22 15:55 | ED.REPORT ---
HPI-General Illness Date of Service Jan 22, 2017 ED Provider: Oleksandr Mckeon MD A 66 year old male on Coumadin with a history of GI bleed, renal failure, diabetes, CAD, hypertension and an extensive cardiac history is referred to the ED from Urgent Care due to abnormal labs. The pt has been feeling generally unwell since 10/2016 with generalized weakness, abdominal pain and decreased food intake as a result of this pain. He has lost 15 to 20 pounds since that point. The pt saw RASHAWN Winters, two days ago and was found to be slightly anemic. Following this appointment, the pt experienced a slight increase in his abdominal pain, esophageal pain and darker stools. He also admits to mild nausea but denies shortness of breath, vomiting, bright red blood in his stool or recent anginal pain. He was seen in Urgent Care today where he was found to be anemic and guaiac positive. Nursing Notes Stated Complaint: LAB RESULTS/SENT BY URGENT CARE Chief Complaint: Male Abdominal Pain Nursing Notes Reviewed: Yes Allergies: Coded Allergies: No Known Allergies (Unverified , 02/27/16) Scheduled Ascorbic Acid (Vitamin C) 1,000 Mg Tab.chew 1,000 MG PO QAM Aspirin (Aspirin) 81 Mg Tablet 81 MG PO QAM Atorvastatin (Lipitor) 20 Mg Tablet 20 MG PO HS Calcitriol (Rocaltrol) 0.25 Mcg Capsule 0.25 MG PO Mon, Mon, Mon Cetirizine Chew (Cetirizine Chew) 10 Mg Tab.chew 10 MG PO HS Clopidogrel Bisulfate (Plavix) 75 Mg Tablet 75 MG PO QAM Ergocalciferol (Vitamin D2) (Vitamin D) 400 Unit Tablet 400 UNIT PO QAM Ezetimibe (Zetia) 10 Mg Tablet 10 MG PO HS Ferrous Gluconate (Ferrous Gluconate) 324 Mg Tab 324 MG PO BIDWM Glimepiride (Glimepiride) 1 Mg Tablet 0.5 MG PO DAILYAC Levothyroxine (Levothyroxine) 88 Mcg Tablet 88 MCG PO QAM Losartan Potassium (Losartan Potassium) 50 Mg Tablet 50 MG PO HS LOSARTAN 25 MG IN AM, LOSARTAN 50 MG AT HS Losartan Potassium (Losartan Potassium) 25 Mg Tablet 25 MG PO QAM LOSARTAN 25 MG IN AM, LOSARTAN 50 MG AT HS [place]-3/Dha/Epa/Fish Oil (Fish Oil 1,000 mg Softgel) 1 Each Capsule 1 EACH PO BIDWM Pantoprazole DR (Pantoprazole DR) 40 Mg Tablet.dr 40 MG PO BIDAC Propranolol ER (Inderal LA) 80 Mg Capsule 80 MG PO HS Pumpkin Seed Oil/Saw [place] (Saw [place] 160 mg Softgel) 160 Mg Capsule 160 MG PO QAM Ubidecarenone/Vit E Acetate (Co Q-10 100 mg Softgel) 1 Each Capsule 100 MG PO QAM Warfarin Sodium (Warfarin Sodium) 5 Mg Tablet 5 MG PO DAILY EXCEPT TUE/DORIS WARFARIN 7.5 MG TUES/TH AND 5 MG ALL OTHER DAYS Warfarin Sodium (Warfarin Sodium) 5 Mg Tablet 7.5 MG PO TUES/THURS WARFARIN 7.5 MG TUES/TH AND 5 MG ALL OTHER DAYS General Time Seen by MD: 15:51 Chief Complaint Other (Abnormal labs) Hx Obtained From: Patient Arrived By: Walk-in Sudden in Onset?: No Recent Healthcare: Recent doctor visit, Recent hospitalization Similar Sx Previous: Yes Past Medical History Past Medical History 1. Atrial fibrillation. 2. Diabetes mellitus type II. 3. Hyperlipidemia. 4. Hypertension. 5. Hypothyroidism. 6. Depression and anxiety. 7. Hodgkin's lymphoma in remission. 8. Essential tremor. 9. Skin cancer. 10. Renal failure 11. GI bleed Reports: Coronary artery disease Past Surgical History 1. 21 cardiac stents. 2. CABG (2001). 3. [address] Shravan's aortic valve replacement. 4. Gamma knife radiation for essential tremor. Family History Mother with breast cancer. Father with diabetes mellitus type II. Sister who is healthy. 3 daughters one of which has an essential tremor. Smoking History Never Smoker Social History Alcohol Use: "Social" Other Social History: Good social support, , Local resident Ambulatory Status Independent Review of Systems dark stools esophageal pain denies recent anginal pain denies bright red blood in his stool Full Review of Systems Constitutional: Reports: Recent wt loss, Weakness - generalized GI: Reports: Abdominal pain Skin: Denies Rash Complete sys rev & neg: except as marked. Physical Exam Constitutional: Well-developed, well-nourished. Not diaphoretic. Head: Normocephalic and atraumatic. Mouth/Throat: Oropharynx is clear and moist. No oropharyngeal exudate. Eyes: EOM are normal. Pupils are equal, round, and reactive to light. Neck: Supple, no tracheal deviation. Cardiovascular: Normal rate, regular rhythm. Equal and intact distal pulses throughout. Murmur present. Pulmonary/Chest: Effort normal and breath sounds normal. No respiratory distress. Abdominal: Soft. No distension. No point tenderness to palpation. No rebound or guarding. Bowel sounds present. Musculoskeletal: Range of motion grossly intact, moving all extremities. No edema or tenderness appreciated. Neurological: AOx3. Grossly nonfocal exam. Strength and sensation intact and equal to bilateral upper and lower extremities. Skin: Warm and dry, no rashes or pallor appreciated. Psychiatric: Appropriate mood and affect. Behavior appears normal. Rectum: Heme occult positive at Urgent Care. Patient deferred repeat exam here. Vital Signs Vital Signs Date Time Temp Pulse Resp B/P Pulse Ox O2 Delivery O2 Flow Rate FiO2 01/22/17 16:54 71 119/46 01/22/17 15:37 78 20 113/55 99 Room Air Initial VS: Reviewed Interpretation & Diagnostics Lab Results Interpretation Result Diagram: 01/22/17 1545 01/22/17 1545 Test 01/22/17 15:45 01/22/17 18:30 White Blood Count 9.6th/mm3 (3.8-10.1) Red Blood Count 3.31mil/mm3 (4.40-5.80) Hemoglobin 9.7g/dL (13.8-17.2) Hematocrit 30.6% (41.0-50.0) Mean Corpuscular Volume 92.4fL (81-100) Mean Corpuscular Hemoglobin 29.3pg (27.0-35.0) Mean Corpuscular Hemoglobin Concent 31.7% (32.0-37.0) Red Cell Distribution Width 14.2% (12.3-15.4) Platelet Count 276bil/L (150-400) Neutrophils (%) (Auto) 77.1% (40-74) Lymphocytes (%) (Auto) 11.3% (14-46) Monocytes (%) (Auto) 9.6% (4-12) Eosinophils (%) (Auto) 1.3% (0-5) Basophils (%) (Auto) 0.6% (0-3) Prothrombin Time 25.7sec (8.1-12.5) Prothromb Time International Ratio 2.36ratio Sodium Level 133mEq/L (134-144) Potassium Level 4.7mEq/L (3.5-5.2) Chloride Level 100mEq/L (97-108) Carbon Dioxide Level 21mmol/L (18-29) Blood Urea Nitrogen 48mg/dL (8-27) Creatinine 1.94mg/dL (0.76-1.27) Estimat Glomerular Filtration Rate 37mL/min (>59) Glucose Level 107mg/dL (60-99) Calcium Level 9.4mg/dL (8.5-10.1) Magnesium Level 2.0mg/dL (1.6-2.6) Total Bilirubin 0.3mg/dL (0.0-1.2) Aspartate Amino Transf (AST/SGOT) 27U/L (0-50) Alanine Aminotransferase (ALT/SGPT) 29U/L (0-44) Alkaline Phosphatase 165U/L (25-160) Total Protein 7.3g/dL (6.4-8.4) Albumin 3.8g/dL (3.4-5.0) Troponin T < 0.010ug/L (0.0-0.011) ECG Interpretation ECG Interpretation: normal sinus rhythm with a rate of 73 probable LVH with secondary repol abnormality no change from previous dated 09/02/2016 Time: 16:02 Interpreted by: ED physician X-Ray Chest Interpretation Chest Xray Interpretation: IMPRESSION: 1. No acute cardiopulmonary disease. Dictated by: Trevor Perez M.D. on 01/22/2017 at 18:25 Approved by: Trevor Perez M.D. on 01/22/2017 at 18:28 Interpretation / Wet Read by: Interpret - Radiologist Re-Eval/Medical Decision Med Decision/Clinical Course In summary, 66-year-old male with a complex PMHx including Ronda-Layne tear earlier this year, currently on Coumadin, presenting to the ED for evaluation of dark stools in the setting of gradually worsening upper abdominal pain. Nontoxic-appearing. No chest pain, no shortness of breath. Abdominal exam without point tenderness to palpation will defer imaging of the abdomen at this time. Discussed the patient with GI appreciate recommendations. Laboratory studies reviewed increased DUN, alkaline phosphatase. Does have an elevated creatinine but appears somewhat consistent with previous. INR therapeutic. Given above, plan admission for further management and evaluation. Patient started on Protonix and octreotide here in the ED, anticoagulation held. Discussed the plan with the patient, who is agreeable, no further questions. Source of Hx: Old records Time of Eval: 15:51 Re-Evaluation/Progress Note: Pt informed of the need for admission during the initial interview. The pt understands and agrees with the plan. All questions are addressed at this time. Consultation #1: Referral / Consult Name: Carroll Sheriff MD Call Returned at: 18:08 Engagement Mgr: Agrees with eval, Agrees with plan Note: Consulted with Dr. Sheriff, GI, regarding pt's case. Dr. Sheriff recommends admission and agrees to scope the pt tomorrow. Consultation #2: Referral / Consult Name: Carolina Lombardo DO Consulted With: Hospitalist Call Returned at: 20:04 Engagement Mgr: Agrees with eval, Agrees with plan, Accepts admit Note: Spoke with Dr. Lombardo, hospitalist, regarding pt's case. Dr. Lombardo agrees with the evaluation and agrees to admit the pt. Counseled Regarding: Diagnosis, Lab results, Need for admission Discharge & Departure Primary Impression: Acute GI bleeding Additional Impression: Anemia Anemia type: unspecified type Qualified Code: D64.9 - Anemia, unspecified Disposition: ADMITTED TO HOSPITAL Discharge Condition All VS Reviewed: Yes Condition: Stable Referrals: NOPCP (PCP) (Family) Scribe Attestation Portions of this note were transcribed by Damaris Stallworth. I, Dr. Mckeon personally performed the history, physical exam and medical decision-making; I reviewed and confirmed the accuracy of the information in the transcribed note. Signed by: Manas Paiz, 01/22/17 and 2020. Oleksandr Mckeon MD Jan 22, 2017 15:55 DAMARIS STALLWORTH Jan 22, 2017 16:32
[2017-01-22 16:08] LABS: BASOPHILS % (AUTO) 0.6 % (0-3); EOSINOPHILS % (AUTO) 1.3 % (0-5); MONOCYTES % (AUTO) 9.6 % (4-12); Mean Corpuscular Hemoglobin 29.3 pg (27.0-35.0); Mean Corpuscular Volume 92.4 fL (81-100); NEUTROPHILS % (AUTO) 77.1 % (40-74); Platelet Count 276 bil/L (150-400)
[2017-01-22 16:24] LABS: INR 2.36 ratio
[2017-01-22 16:33] LABS: TROPONIN T < 0.010 ug/L (0.0-0.011)
[2017-01-22 16:54] VITALS: BP 119/46; PULSE 71
[2017-01-22] MEDS ORDERED: Pantoprazole 4 mg/mL 10 mL Inj IVPUSH ONE (17:55)
[2017-01-22] MEDS ORDERED: 0.9% Sodium Chloride 1,000 ML IV ONE (18:15)
--- NOTE | 2017-01-22 18:29 | DRSVH ---
PROCEDURE: X-RAY CHEST, TWO VIEWS ([id number]) INDICATIONS: abdominal pain TECHNIQUE: 2 views of the chest were acquired. COMPARISON: [facility], CR, XR CHEST 1VW (PORTABLE), 09/02/2016, 10:35. FINDINGS: Surgical changes and devices: Surgical changes are redemonstrated in the mediastinum and right hemith orax. Lungs and pleura: No pleural effusions or pneumothorax. Lungs are clear. Mediastinum: Mediastinal contours are normal. Heart size is normal. Bones and chest wall: No suspicious bony abnormalities. Soft tissues appear unremarkable. IMPRESSION: 1. No acute cardiopulmonary disease. Dictated by: Trevor Perez M.D. on 01/22/2017 at 18:25 Approved by: Trevor Perez M.D. on 01/22/2017 at 18:28
[2017-01-22] MEDS ORDERED: CETI10TA20 PO (18:31)
[2017-01-22] MEDS ORDERED: Ondansetron 2 mg/mL 2 mL Inj IVPUSH PRN (19:25)
[2017-01-22] MEDS ORDERED: Alum-Mag Hydrox-Simeth 30 mL Suspension PO PRN (19:25)
[2017-01-22] MEDS ORDERED: LOSA25TA21 PO (19:40)
--- NOTE | 2017-01-22 20:16 | PCM.HPMED ---
Subjective Date of Service Jan 22, 2017 Primary Provider: Admitting Physician: [facility] Attending Phys[facility]: Admit Status: From the Emergency Department Chief Complaint: Anorexia and fatigue History of Present Illness: Patient is a 66-year-old male with past medical history remarkable for coronary artery disease post-CABG and 21 stents, GI bleed secondary Ronda-Layne tear on EGD in August 2015 presents to [facility] from urgent care due to fatigue and anorexia. The patient states that he was last seen by his practice clinician on January 20 and since that time he has developed worsening dark stools. The patient denies any blood-streaked stool or severe tarry stools, and denies any recent nausea or vomiting recently. The patient was seen in urgent care today and diagnosed with anemia with positive stool guaiac as well as an enlarged prostate. The patient states that he feels similar to that of being anemic in the past. The patient denies any chest pain on exertion stating that he was able to do 40 minutes on a treadmill for cardiac rehabilitation without issue. The patient was recently started on cetirizine for allergies. The patient states that he has been losing weight recently with a decrease in his appetite and worsening dyspepsia upon eating. The right loss is reported to be approximately 15-20 pounds since October. The patient denies any recent headaches, night sweats, unusual bruising or bleeding. Review of outpatient records indicate that gastroenterology was considering possible gallbladder disease with ultrasound scheduled. Review of Systems: A comprehensive review of systems was obtained and all are negative except for what is included in the history of present illness. Allergies Coded Allergies: No Known Allergies (Unverified , 01/22/17) Home Medications Ascorbic Acid 1,000 MG PO QAM Aspirin 81 MG PO QAM Atorvastatin 20 MG PO HS Calcitriol (Rocaltrol) 0.25 Mcg PO Mon, Wed, Fri Cetirizine Chew 10 MG PO HS Clopidogrel Bisulfate 75 MG PO QAM Ergocalciferol 400 UNIT PO QAM Ezetimibe 10 MG PO HS Ferrous Gluconate 324 MG PO BIDWM Glimepiride 0.5 MG PO DAILYAC Levothyroxine 88 MCG PO QAM LOSARTAN 25 MG IN AM, LOSARTAN 50 MG AT HS Ocate-3/Dha/Epa/Fish Oil 1 EACH PO BIDWM Pantoprazole DR 40 MG PO BIDAC Propranolol ER 80 MG PO HS Pumpkin Seed Oil/Saw [place] 160 MG PO QAM Ubidecarenone/Vit E Acetate (Co Q-10 100 mg Softgel) 1 Each Capsule 100 MG PO QAM Warfarin Sodium (Warfarin Sodium) 5 Mg Tablet 5 MG PO DAILY EXCEPT TUE/DORIS WARFARIN 7.5 MG TUES/TH AND 5 MG ALL OTHER DAYS Warfarin Sodium (Warfarin Sodium) 5 Mg Tablet 7.5 MG PO TUES/THURS WARFARIN 7.5 MG TUES/TH AND 5 MG ALL OTHER DAYS PMH 1. Paroxysmal Atrial fibrillation. 2. Diabetes mellitus type II. 3. Hyperlipidemia. 4. Hypertension. 5. Hypothyroidism. 6. Depression and anxiety. 7. Hodgkin's lymphoma in remission. 8. Essential tremor. 9. Skin cancer. 10. Renal failure 11. Coronary artery disease 12. Aortic stenosis 13. Cluster headaches 14. History of Ronda-Layne tear 15. Hiatal hernia Surgical History 1. 21 cardiac stents. 2. CABG (2001). 3. [address] [facility]rav[facility]'s aortic valve replacement. 4. Gamma knife radiation for essential tremor. 5. EGD performed in August 2016 showed hiatal hernia with Ronda-Layne tear 6. Colonoscopy last performed in 2013 Family History Mother with breast cancer. Father with diabetes mellitus type II. Sister who is healthy. 3 daughters one of which has an essential tremor. Social History Hx Alcohol Use: Yes Hx Substance Use: Yes (30+ yrs ago frequent marijuana user; Edible marijuana 2x in last 2 mo.s) Hx Tobacco Use: Yes Smoking Status: Former Smoker (Quit in 1999) Years of Smokin Living Arrangement: with Family Exam Vital Signs Vital Sign - Last Date Time Temp Pulse Resp B/P Pulse Ox O2 Delivery O2 Flow Rate FiO2 01/22/17 16:54 71 119/46 01/22/17 15:37 20 99 Room Air Exam Gen.: Middle-aged male in no acute distress lying comfortably in bed Eyes: Pupils equal round and reactive to light, extraocular motion intact anicteric sclera noninjected conjunctiva HENT: Normocephalic atraumatic, moist mucous membranes without central cyanosis , without cobblestoning mucosa Neck: Supple, trachea midline, no JVD Cardiovascular: Regular rate and rhythm, soft systolic ejection murmur noted at right sternal border, no rubs or gallops noted, PMI nondisplaced Lungs: Clear to auscultation bilaterally without wheezing rales or rhonchi Abdomen: Tender in the epigastrium, normal active bowel sounds, nondistended, tympanic to percussion Extremities: Pulses intact and radial and dorsalis pedis bilaterally, Capillary refill less than 3 seconds, no cyanosis clubbing or edema noted Skin: Warm and dry : No Smith in place Neuro: No focal neurologic deficits Psych: Normal mood and affect Lab and Diagnostics Result Diagram: 01/22/17 1545 01/22/17 1545 X-Rays, CTs and MRIs X-RAY CHEST, TWO VIEWS IMPRESSION: 1. No acute cardiopulmonary disease. Dictated by: Trevor Perez M.D. on 01/22/2017 at 18:25 Assessment & Plan Patient is a 66-year-old male with past medical history remarkable for coronary artery disease post-CABG and 21 stents, GI bleed secondary Ronda-Layne tear on EGD in August 2015 presents to [facility] from urgent care due to fatigue and anorexia. # likely upper GI bleed - Patient reports worsening abdominal discomfort consistent with GERD and anorexia with eating, as well as worsening dark stools over the last several days - the patient had an EGD performed in August 2016 which showed upper GI bleed secondary to Ronda-Layne tear as well as hiatal hernia - Gastroenterology was consulted from the emergency department with possible EGD to be performed January 23 - Patient received pantoprazole 80 mg as well as octreotide 50 g in ED - Continue pantoprazole drip - H&H q 4 overnight - Patient to be made nothing by mouth for likely EGD - Hold aspirin, Plavix, and warfarin for possible procedure - INR currently at 2.36, the patient will not receive vitamin K for possible warfarin reversal at this time - Repeat PT INR in the a.m. to confirm prior to procedure # Anemia - Likely secondary to upper GI bleed, patient lacks microcytosis consistent with chronic bleed - Iron deficiency anemia panel ordered including total iron, TIBC, ferritin, reticulocyte count - possible EGD to be performed January 23 - H&H q 4 overnight - INR currently at 2.36, the patient will not receive vitamin K for possible warfarin reversal at this time - Repeat PT INR in the a.m. to confirm prior to procedure # Anorexia - Patient describes a 15-20 pound weight loss since October with notable abdominal discomfort after eating the patient describes consistent with GERD - No chronic worsening headaches, night sweats, unusual bruising or bleeding noted - Abdominal ultrasound ordered for in the morning for possible gallbladder disease with associated anorexia and abdominal discomfort associated with eating # Paroxysmal atrial fibrillation - Patient is on chronic warfarin therapy - Hold warfarin and possible GI procedure - INR currently at 2.36, the patient will not receive vitamin K for possible warfarin reversal at this time - Repeat PT INR in the a.m. to confirm prior to procedure # Coronary artery disease - Patient denies any chest pain on exertion stating he lasted 40 minutes on a treadmill cardiac rehabilitation without issue - Patient's last percutaneous intervention, history of 21 stents placed, greater than 1 year ago - Continue outpatient atorvastatin and ezetimibe - Hold aspirin and Plavix for possible GI procedure # Chronic kidney disease likely stage IIIB - Creatinine currently at 1.9 likely baseline is around 1.7 - Potassium 4.7 - Patient received 1 L normal saline IV in the ED - Avoid nephrotoxic insults including NSAIDs IV contrast - Ok to continue outpatient Losartan when patient develops HTN will hold as normotensive currently # Hyponatremia - Sodium 133 - Patient received 1 L normal saline IV in the ED - monitor # Hypothyroid - Continue levothyroxine 88 g daily # Diabetes mellitus type II - Hold glimepiride given nothing by mouth for possible GI procedure - Low correction scale lispro Chronic conditions # Essential tremor - History of gamma knife ablation - Okay to continue propranolol # Hyperlipidemia. - Okay to continue ezetimibe and atorvastatin # Hypertension. - holding antihypertensive medications as patient is normotensive with concern about acute bleed - restart when proven hemodynamically stable # Aortic stenosis - History of aortic valve replacement in 2001 on chronic anticoagulation - Hold warfarin for possible GI procedure - Restart warfarin after GI procedure depending on findings # Cluster headaches - Avoid NSAIDs due to chronic kidney disease - Patient denies recent recurrence # Depression and anxiety # Hodgkin's lymphoma in remission. DVT prophylaxis: Contraindicated SCDs only GI prophylaxis: Pantoprazole 40 mg twice a day Patient is admitted for observation status given the likely presenting symptoms and likely diagnosis and possible complications and expected treatment with expected length of stay less than two midnights. Pain Evaluation: Adequate Pain Control GI Prophylaxis: Proton Pump Inhibitor VTE Prophylaxis Indicated: Contraindicated VTE Prophylaxis: SCDs Resuscitation Status: CPR: Attempt Resuscitation Attending Statement The patient was seen and examined together with house staff on 01/22/2017 and I agree with the history, exam and plan as outlined in the note above. Atul Cabrales DO Jan 22, 2017 20:16 Carolina Lombardo DO Jan 22, 2017 23:46
[2017-01-22 20:45] VITALS: BP 130/61; PULSE 69; RESP 22; O2SAT 99
[2017-01-22] MEDS ORDERED: Propranolol LA 80 mg ER24 Capsule PO SCH (21:00)
[2017-01-22] MEDS ORDERED: Glucose 40% Oral Gel 15 Gm Tube PO PRN (21:10)
[2017-01-22 22:35] LABS: Unsaturated Iron Binding 230.7 ug/dL
[2017-01-22] MEDS: Pantoprazole Inj 80 MG in 0.9% Sodium Chloride 80 ML IV SCH (22:51)
[2017-01-22 23:12] LABS: APPEARANCE,URINE CLEAR (CLEAR,HAZY); COLOR,URINE YELLOW (YELLOW); OCCULT BLOOD,URINE NEGATIVE (NEGATIVE); PH,URINE 5.5 (5.0-8.0); UROBILINOGEN,URINE NORMAL (NORMAL)
[2017-01-22] MEDS ORDERED: Propranolol LA 60 mg ER24 Capsule PO ONE (23:14)
[2017-01-22] MEDS: Insulin LISPRO 300 Unit/3 mL Inj SUBQ SCH (23:29)
[2017-01-23] VITALS (13 sets, daily range): BP systolic 110–177; BP diastolic 52–68; PULSE 75–89; RESP 14–20; O2SAT 97–100
--- NOTE | 2017-01-23 01:45 | NUR ---
admit to floor Alert, steady gait. denies pain or nausea. Protonix gtt initiated. Placed NPO at midnight after a light evening meal at 2130. Held HS Inderal medication for B/p 130/61, per Dr. Castillo - will need to resume tomorrow post procedure. Patients to bring in his home medication for Inderal. Pharmacy doesn't carry the correct dosage he takes. Patient resting comfortably overnight, denies dizziness, H/H; 8.2/26.3
[2017-01-23 04:26] LABS: BASOPHILS % (AUTO) 0.8 % (0-3); EOSINOPHILS % (AUTO) 1.6 % (0-5); MONOCYTES % (AUTO) 9.5 % (4-12); Mean Corpuscular Hemoglobin 29.3 pg (27.0-35.0); Mean Corpuscular Volume 92.9 fL (81-100); NEUTROPHILS % (AUTO) 75.7 % (40-74); Platelet Count 255 bil/L (150-400)
[2017-01-23 04:47] LABS: INR 2.42 ratio
[2017-01-23] MEDS: Pantoprazole Inj 80 MG in 0.9% Sodium Chloride 80 ML IV SCH ×2 (07:30→14:01)
[2017-01-23] MEDS: Insulin LISPRO 300 Unit/3 mL Inj SUBQ SCH (08:00)
[2017-01-23] MEDS ORDERED: Pantoprazole 40 mg ER24 Tablet PO SCH (08:30)
--- NOTE | 2017-01-23 10:33 | PCM.PNMED ---
Subjective Date of Service Jan 23, 2017 Subjective pt had one black tarry stool this AM, small amount was reached, thinks that was the c consultant yesterday h/h remained stable, denied SOB, remained fatigued, no abd pain, n/v ppi gtt is running Exam Vital Signs Vital Sign - Last Date Time Temp Pulse Resp B/P Pulse Ox O2 Delivery O2 Flow Rate FiO2 01/23/17 05:35 37.0 81 20 124/63 97 Room Air Intake and Output 01/22/17 01/22/17 01/23/17 Cumulative From/Thru 15:00 23:00 07:00 01/22/17 15:37 - 01/23/17 06:28 Intake Total 1000 ml 600 ml 1600 ml Output Total 1000 ml 1000 ml Balance 1000 ml -400 ml 600 ml Intake Oral 600 ml 600 ml IV Total 1000 ml 1000 ml Output Urine Total 1000 ml 1000 ml # Voids 3 3 # Bowel Movements 0 0 Exam NAD, comfortably laying down on the bed no JVD, MMM, no LAD RRR, nl s1, s2 no mrg CTAB, no w,c S,ND,NT,normoactive BS+ warm, no edema, pulses 2/2 IVs and Medications Medications Reviewed: Medications were reviewed in detail Lab and Diagnostics Result Diagram: 01/23/1741401/23/17414 X-Rays, CTs and MRIs X-RAY CHEST, TWO VIEWS IMPRESSION: 1. No acute cardiopulmonary disease. Dictated by: Trevor Perez M.D. on 01/22/2017 at 18:25 Assessment & Plan Patient is a 66-year-old male with past medical history remarkable for coronary artery disease post-CABG and 21 stents, GI bleed secondary Ronda-Layne tear on EGD in August 2015 presents to [facility] from urgent care due to fatigue and anorexia. #new onset black tarry stools, dyspepsia, wt loss, in the setting of full dose AC, asa, plavix, presumably UGIB. EGD in August 2016 which showed upper GI bleed secondary to Ronda-Layne tear as well as hiatal hernia - h/h q12h, so far remained stable, no active GIB reported. HD stable - tentatively planning for EGD this PM. - Patient received pantoprazole 80 mg as well as octreotide 50 g in ED, continue PPI gtt - Hold aspirin, Plavix, and warfarin for possible procedure - INR currently at 2.36, given extensive CAD, Mechanical AV, no vitK given on admission #presumed acute blood loose Anemia, -awaits Iron deficiency anemia panel ordered including total iron, TIBC, ferritin, reticulocyte count - transfuse hgb>8 target given CAD # Anorexia, Patient describes a 15-20 pound weight loss since October with notable abdominal discomfort after eating the patient describes consistent with GERD - awaits ABD US, chronic, stable # Paroxysmal atrial fibrillation, Patient is on chronic warfarin therapy, Hold warfarin and possible GI procedure, follow INR # Coronary artery disease on DAPT, stable, Patient denies any chest pain on exertion stating he lasted 40 minutes on a treadmill cardiac rehabilitation without issue - Patient's last percutaneous intervention, history of 21 stents placed, greater than 1 year ago - Continue outpatient atorvastatin and ezetimibe - Hold aspirin and Plavix for possible GI procedure # Chronic kidney disease likely stage IIIB, Creatinine currently at 1.9 likely baseline is around 1.7. Patient received 1 L normal saline IV in the ED - Avoid nephrotoxic insults including NSAIDs IV contrast - Ok to continue outpatient Losartan when patient develops HTN will hold as normotensive currently # Hyponatremia, Sodium 133 resolved with IVF # Hypothyroid, Continue levothyroxine 88 g daily # Diabetes mellitus type II. Hold glimepiride given nothing by mouth for possible GI procedure, Low correction scale lispro # Essential tremor - History of gamma knife ablation - Okay to continue propranolol # Hyperlipidemia. - Okay to continue ezetimibe and atorvastatin # Hypertension. - holding antihypertensive medications as patient is normotensive with concern about acute bleed - restart when proven hemodynamically stable # Aortic stenosis, s/p mechanical aortic valve replacement in 2001 on chronic anticoagulation, - Hold warfarin for possible GI procedure - Restart warfarin after GI procedure depending on findings # Cluster headaches - Avoid NSAIDs due to chronic kidney disease - Patient denies recent recurrence # Depression and anxiety # Hodgkin's lymphoma in remission. DVT prophylaxis: Contraindicated SCDs only GI prophylaxis: Pantoprazole 40 mg twice a day likely 1-2more days depending on GI w/u GI Prophylaxis: Proton Pump Inhibitor VTE Prophylaxis: SCDs VTE Mechanical Devices: Intermittant Pneumatic CD Resuscitation Status: CPR: Attempt Resuscitation Time spent 35min Shivam Browne MD Jan 23, 2017 08:02 Shivam Browne MD Jan 23, 2017 08:02
--- NOTE | 2017-01-23 11:10 | DRSVH ---
PROCEDURE: US ABDOMEN INDICATIONS: anorexia with discomfort after eating TECHNIQUE: Real-time scanning was performed of the abdominal and retroperitoneal organs, with image documentatio n. COMPARISON: [facility], CR, XR BARIUM SWALLOW ESOPHAGUS, 11/08/2016, 11:47. FINDINGS: Liver length: 16.21 cm Gallbladder Wall Thickness: 1.50 mm CHD: 1.40 mm CBD: 2.50 mm Spleen length: 11.38 cm Right kidney length: 11.47 cm Left kidney length: 9.68 cm Aorta(Proximal): n.a. Aorta(Mid): 1.54 cm Aorta(Distal): 1.45 cm RCIA: 8.70 mm LCIA: 9 mm Liver: Liver is normal in size and demonstrates heterogeneous echotexture with possibility of masses . Gallbladder: There is mobile gallstone. No gallbladder wall thickening, pericholecystic fluid or son ographic Joe's sign. Biliary ducts: Intrahepatic bile ducts are non-dilated. Extrahepatic bile duct caliber is normal. Normal is 6-7 mm or less in diameter, or 10 mm or less post-cholecystectomy. Pancreas: Not visualized due to overlying bowel gas. Spleen: Spleen is normal in size and homogeneous in echotexture. Kidneys: Kidneys are normal in size and echotexture. No hydronephrosis or nephrolithiasis. The sup erior pole of the left kidney is not well seen.? A cyst is in the superior pole of the left kidney me asuring 1.4 cm. Aorta: Visualized aorta is normal in caliber at less than 3 cm. Iliacs: Proximal common iliac arteries are normal in caliber at less than 2.5 cm. IVC: Intrahepatic inferior vena cava is patent. Miscellaneous: No free abdominal fluid. IMPRESSION: 1. Liver demonstrates heterogeneous echotexture suggesting the possibility of hepatic masses or infil trative process. Recommend liver protocol CT or MRI for further evaluation. 2. Cholelithiasis. No ultrasound evidence for acute cholecystitis. 3. Pancreas is not well-seen. 4. Possible 1.4 cm superior pole cyst in the left kidney. This can be further evaluated with CT at th e same time. Dictated by: Roddy Squires M.D. on 01/23/2017 at 11:00 Approved by: Roddy Squires M.D. on 01/23/2017 at 11:08
[2017-01-23] MEDS ORDERED: fentaNYL-PF 50 mCg/mL 2 mL Inj ONE (12:43)
[2017-01-23] MEDS ORDERED: Propofol 10,000 mCg/mL 20 mL Inj ONE (12:43)
--- NOTE | 2017-01-23 14:08 | NUR ---
Social Work: Initial Assessment D: EMR reviewed. Pt is a 66 y/o male admitted for upper GI bleed per H&P. YANIV met with pt at bedside to conduct initial assessment. Pt was alert and oriented x3. SW explained role and wrote phone number on white board. SW confirmed pt has completed DPOA/advanced directive ppw and encouraged pt to provide a copy to the hospital. Pt gave verbal consent to contact spouse/DPOA, Yoni Adame ([phone]) for discharge planning. Pt's insurance is [employer] and PCP is Suzette Aragon DO. Pt has no hx of HH or a SNF. Pt does not have LTC insurance or VA benefits. Pt is independent with ADLs. Pt does not use any DME. Pt drives. Pt is independent at baseline. Pt lives at with spouse in a mutli-story home - with 2 steps to enter and 13 steps to the second level - in [facility]. Pt confirmed that his spouse will provide transport home via POV when pt is medically stable. SW does not anticipate any discharge needs at this time but will continue to follow if needs arise. A: Pt who is independent at baseline. P: Pt confirmed that his spouse will provide transport home via POV when pt is medically stable. SW does not anticipate any discharge needs at this time but will continue to follow if needs arise. RIVER Shook Addendum: 01/23/17 at 1417 by KAYLEY REESE SS Amended: Links added.
[2017-01-23] MEDS: Insulin REGULAR SS Low-Dose SUBQ SCH (14:30)
--- NOTE | 2017-01-23 14:48 | NUR ---
NUTRITION ASSESSMENT: ASSESS: 66YO M admit with black tarry stools, fatigue, reported 15-20lb weight loss x 3mos with discomfort after eating. Pt to undergo possible EGD, abdominal ultrasound. PMHX: CAD s/p CABG,stents; GI bleed, hypothyroid,DM Type II,Essential Tremor, HTN DIET: NPO LABS: K+5.4, BUN 43, Cr 1.77, Glu 120, Alb 3.5 MEDS: Reviewed SKIN: [place] 20, no issues noted GI: Sm BM per MD notes WEIGHT: 91.3kg BMI: 25.8 : UBW reported: 100.3kg; 20lb wt. loss x 3mos, 9% wt loss= Severe EST.NEEDS: WT GAIN Kcal: 4118-0568 Pro: 100-123g NUTRITION DIAGNOSIS: (1) Severe malnutrition related to decreased appetite, abdominal discomfort with eating reported prior to admit as evidenced by reported 9% weight loss x 3mos. INTERVENTION: (1) Currently NPO, await timely diet advancement, will add supplements, monitor for potential nutrition support. MONITOR/EVALUATE: Diet advancement, GI status. F/U per moderate risk.
--- NOTE | 2017-01-23 16:03 | NUR ---
Ultrasound, Endoscopy 0737 - Lorin from ultrasound called to get report before he went for the abdominal ultrasound. 0756 - He left [facility] to get the ultrasound completed and returned about 0820. 0838 - Spoke to Dr. Sheriff on the phone and gave him a report of his condition. He said that his stools did not need to be guaiaced, only observed for appearance. 0910 - Noted that he had a black, tarry medium sized stool. 1115 - Spoke to one of the Pharmacist about getting another Protonix IV drip as he was running low. It was ordered and sent up. 1400 - He was wondering about the plan for today and he had not heard any updates. Paged Dr. Browne who called back and said that per Dr. Sheriff the plan was to have an EGD today. Called Endoscopy and was told that he was on the schedule to have the EGD between 1500 and 1530. Notified the pt of this. 1534 - He left [facility]4 for Endoscopy to get the EGD completed. Care continues.
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
[2017-01-23] MEDS ORDERED: Lactated Ringer's 1,000 ML IV ONE (16:46)
--- NOTE | 2017-01-23 16:54 | PCM.ANEP1 ---
Post Anesthesia PACU Phase 1 Assessment Date of Service: Jan 23, 2017 Vital Signs Vital Signs Date Time Temp Pulse Resp B/P Pulse Ox O2 Delivery O2 Flow Rate FiO2 01/23/17 15:43 36.9 80 16 136/57 100 Room Air 01/23/17 12:59 36.5 80 18 132/66 98 Room Air 01/23/17 09:08 36.6 75 17 136/68 98 Room Air Post procedure: 136/63 72 14 99% Anesthetic Administered: MAC Level of Alertness: Awake, talking WEI's with Equal Strength: Yes Pain: No Nausea or Vomiting: No CV Function & Hydration Stable: Yes Airway Device: Oxygen Delivery: Nasal Cannula Lungs: Normal Air Movement PACU Phase 2 Assessment Complications: No Patient Instructions Provided: N/A Jeffrey Richards MD Jan 23, 2017 16:54
--- NOTE | 2017-01-23 18:38 | NUR ---
Transfer 1653 - Tere from Endoscopy called and asked if his was in the room as Dr. Sheriff wanted to speak with her. She was not, so Tere said she'd give her a call. 1752 - The CT department called saying they had tried to call Dr. Sheriff about 30 minutes prior, but had not been able to reach him. They wanted to clarify if he wanted the ordered CT with or without contrast. Told her he might still be in Endoscopy with the patient. She called back shortly after saying she had been able to reach him and clarify the order. Was notified around this time by the Charge Nurse that he would be transferring from Endoscopy to [facility] 2009 due to some complications they found. She said the lab called and said his FFP units were ready and to pass it along to the PCC nurse. 1809 - His belongings were taken upstairs by the SUPERVISOR GLUING from [facility] to [facility] 2009, but the room was not clean. Due to him having a computer and phone his belongings were placed in the staff report room and the CCU/PCC Charge Nurse was notified. Called report to Delores Warren RN in [facility] and made sure to mention his belongings, the FFP, and the fact that he is the father of one of the PCC nurses.
[2017-01-23 20:51] LABS: BASOPHILS % (AUTO) 0.5 % (0-3); EOSINOPHILS % (AUTO) 1.1 % (0-5); MONOCYTES % (AUTO) 6.6 % (4-12); Mean Corpuscular Hemoglobin 28.9 pg (27.0-35.0); Mean Corpuscular Volume 93.5 fL (81-100); NEUTROPHILS % (AUTO) 82.9 % (40-74); Platelet Count 267 bil/L (150-400)
--- NOTE | 2017-01-23 23:01 | CONS ---
[address] [address] CONSULTATION REPORT PATIENT: JAIDEN RODAS : 1950 MR#: [id number] ADMIT: 01/22/2017 JOB ID: [id number] DATE OF SERVICE: 01/23/2017 REASON FOR CONSULTATION: Melena. REQUESTING PROVIDER: Oleksandr Mckeon MD. HISTORY OF PRESENT ILLNESS: This is a 66-year-old male with moderate cardiac comorbidity. In August, he was hospitalized for symptoms of acute upper GI bleeding that had occurred in the context of upper respiratory tract coughing fits. He was found to have a Ronda-Layne tear at that time. He responded to an epinephrine injection. The patient was seen in followup in my office in October and at that time had reported some difficulty with swallowing that come on in the preceding 3-4 weeks. We elected to then pursue a barium swallow to further evaluate his gastroesophageal junction in the context of the Ronda-Layne tear seen a couple of months earlier. Barium at that time reported only the presence of a small reducible hiatal hernia and mild reflux. The patient recently followed up in my office last week on Monday morning and had been reporting further symptoms of dyspepsia that seemed to be worse with fatty meals. He actually even had some right upper quadrant discomfort. He was additionally having some elements of dysphagia once again and had reported some weight loss. As part of our initial evaluation I had recommended he proceed to ultrasound plus or minus HIDA scan imaging. That night, the patient noticed his stool started to turn dark. By Monday morning, it was even darker. He presented to urgent care yesterday with a feeling of weakness and his hemoglobin had dropped from 11.9 earlier this month on January 13 down to 10.2. He was advised to go over to the emergency department and was found to have a hemoglobin of 9.7. Overnight, he dropped into the 8.2/8.3 range. He has not had any nausea or vomiting. He reports that he has had some intermittent coughing of late in response to swallowing his large vitamin C tablets which sometimes he feels go through in an awkward position. He has been nothing by mouth today and not experiencing any significant abdominal pain. ALLERGIES: No known drug allergies. MEDICATIONS: The patient was takin. Cetirizine. 2. Plavix. 3. Iron. 4. Warfarin. 5. Lipitor. 6. Zetia. 7. Losartan. 8. [place]-3 fish oil. 9. Propranolol. 10. Aspirin. 11. Pantoprazole 40 mg twice daily. 12. Glimepiride. 13. Levothyroxine. 14. Vitamin C. 15. Calcitriol. 16. Vitamin D. 17. Pumpkin seed oil. 18. CoQ10. PAST MEDICAL HISTORY: 1. Ronda-Layne tear. 2. Diabetes. 3. Afib. 4. Hyperlipidemia. 5. Hypertension. 6. Hypothyroid. 7. Depression. 8. Anxiety. 9. Hodgkin's lymphoma. 10. Tremor. 11. Skin cancer. 12. Chronic renal insufficiency. 13. Coronary artery disease. 14. Aortic stenosis. 15. Cluster headaches. 16. Hiatal hernia. PAST SURGICAL HISTORY: 1. Twenty-one cardiac stents. 2. Coronary artery bypass in 2001. 3[address] [facility] aortic valve replacement. 4. He has had Gamma Knife radiation for essential tremor. 5. Patient's last colonoscopy was in 2013 by verbal report. FAMILY HISTORY: No GI issues mentioned. SOCIAL HISTORY: Ex-smoker. . His daughter works on the [employer]. REVIEW OF SYSTEMS: Please see HPI. Otherwise, review unremarkable. PHYSICAL EXAMINATION: Blood pressure 136/57, pulse 80, breathing 16, afebrile 36.9; 100% on room air. The patient was in no distress. Alert, oriented, appropriate, cooperative, conversational. Skin: Warm and dry. Sclerae anicteric. No significant lower extremity edema. Heart: Non-tachycardic. Abdomen: Nondistended, nontender. Good respiratory effort and air entry. LABORATORIES: Hemoglobin 8.9, hematocrit 28.2, platelets 255, white count 9.3. INR 2.42. Sodium 136, potassium 5.4, chloride 104, bicarb 20, BUN 43, creatinine 1.77, glucose 128, calcium 8.6. Liver tests normal. TSH 0.817. Albumin 3.5. Troponin is negative. IMAGING: Ultrasound accomplished, showed heterogeneous appearing echotexture in the liver. He had a mobile gallstone but no sign of acute cholecystitis. Pancreas was not well seen. No report of any biliary ductal dilatation. ASSESSMENT AND PLAN: A 66-year-old male with recurrent upper gastrointestinal bleeding in the face of a prior Ronda-Layne tear back in August. He has been experiencing an element of dysphagia over the last several months, now with weight loss. Barium esophagram in October did not disclose any sinister pathology in the distal esophagus. Currently, his INR is therapeutic. He is off his Plavix and aspirin while hospitalized, but certainly remains at moderately high risk for procedural induced bleeding. Plan is for a diagnostic esophagogastroduodenoscopy to help risk stratify and determine the next steps. The risks of the procedure were reviewed with the patient. Written and verbal informed consent were obtained. Please see the procedure note for further details.
[2017-01-23 23:38] LABS: INR 2.33 ratio
[2017-01-24] VITALS (25 sets, daily range): BP systolic 114–174; BP diastolic 39–82; PULSE 85–120; RESP 16–22; O2SAT 94–99
[2017-01-24] MEDS: oxyCODONE-Acetamin 5-325 mg Tablet PO PRN ×2 (00:25→20:56)
[2017-01-24] MEDS: Insulin REGULAR SS Low-Dose SUBQ SCH ×5 (00:25→20:00)
--- NOTE | 2017-01-24 02:20 | ENDO ---
[address] [address] ENDOSCOPY PROCEDURE PATIENT: JAIDEN RODAS : 1950 MR#: [id number] ADMIT: 01/22/2017 JOB ID: [id number] DATE OF PROCEDURE: 01/23/2017 PROCEDURE: Esophagogastroscopy. INDICATIONS: A 66-year-old male hospitalized for recurrent upper GI bleeding. SEDATION: Please see the anesthesia notes as provided by Jeffrey Richards MD. COMPLICATIONS: None identified. PROCEDURE INFORMATION: After the risks and benefits were explained, written and verbal informed consent was obtained. The patient was brought into the endoscopy suite and placed into the left lateral decubitus position. Sedation was achieved using the above-stated medications with the addition of oxygen via nasal cannula. The scope was introduced into the mouth through the bite block and advanced under direct visualization to the distal esophagus, where we encountered some fresh blood. We then discovered an ulcerated excavated mass effect at the level of the GE junction. This measured out to probably be somewhere in the neighborhood of about 2 cm or so. Within the crater of this excavated area there was active oozing. In the context of an INR of 2.42 with Plavix and aspirin on board up until very recently, I did not probe this with a Gold Probe or APC for fear of actually inducing more accelerated bleeding. We were able to advance the scope down into the stomach proper. There was a moderate amount of blood clot material present in the stomach. The stomach was ultimately decompressed. The scope was removed from the patient who tolerated the procedure well. FINDINGS: Ulcerated GE junction mass lesion concerning for neoplasia. RECOMMENDATIONS: 1. Reverse the INR to less than 1.5 (I have ordered 3 units of FFP right now.) 2. Continue to monitor CBC and transfuse as needed. 3. Continue to hold aspirin, Plavix, and Coumadin. 4. CT noncon chest, abdomen and pelvis is ordered (chronic renal insufficiency.) Depending on the findings, repeat EGD for tissue acquisition in seven days would be appropriate. Additionally, dependent on findings, endoscopic ultrasound for staging will also be appropriate. 5. It would be uncertain as to whether the patient is a surgical candidate if this is confirmed a malignancy. Regardless, Oncology consultation will likely be appropriate as well. 6. As the workup develops should bleeding become more accelerated then repeat EGD for therapeutic purposes between now and next week would be appropriate. 7. For now, will leave the patient on a clear liquid diet.
[2017-01-24 05:05] LABS: BASOPHILS % (AUTO) 0.4 % (0-3); EOSINOPHILS % (AUTO) 1.1 % (0-5); MONOCYTES % (AUTO) 8.2 % (4-12); Mean Corpuscular Hemoglobin 28.6 pg (27.0-35.0); Mean Corpuscular Volume 93.5 fL (81-100); NEUTROPHILS % (AUTO) 78.8 % (40-74); Platelet Count 248 bil/L (150-400)
[2017-01-24 05:23] LABS: INR 1.57 ratio
[2017-01-24] MEDS: 0.9% Sodium Chloride 250 ML IV SCH ×2 (05:25→23:41)
[2017-01-24 05:28] LABS: Magnesium 1.9 mg/dL (1.6-2.6); Phosphorus 3.2 mg/dL (2.5-4.9)
[2017-01-24] MEDS ORDERED: 0.9% Sodium Chloride 1,000 ML IV ONE ×2 (06:00→12:00)
[2017-01-24] MEDS: Pantoprazole Inj 80 MG in 0.9% Sodium Chloride 80 ML IV SCH ×3 (06:18→22:42)
--- NOTE | 2017-01-24 06:40 | NUR ---
Hemodynamics / blood products Pt denies bloody emesis. No stool noted. HR up with activities 120s-150s. HR down with rest. 3 units of FFPs given overnight. Order was clarified with Dr. Sainz and Dr. Sheriff (refer to paper chart for further details). H/H dropped this am. Received order to transfuse 2 units PRBCs. Waiting for PRBC availability. Transfusion per day shift team. Pt asymptotic. Hydration prior to CT this am initiated. No overt complications noted.
--- NOTE | 2017-01-24 09:08 | NUR ---
CT/plan/blood Pt to go for CT with oral contrast. 1L NS prior and 1L NS post to flush kidneys. INR 1.5 plan to wait through the week for plavix and asa to be out of his system prior to biopsy. Dr Cloud consulted for esophageal mass.
--- NOTE | 2017-01-24 11:58 | DRSVH ---
PROCEDURE: CT CHEST, ABDOMEN AND PELVIS [facility] CONTRAST ([id number]) INDICATIONS: UGI BLEEDING / ESOPHAGEAL MASS TECHNIQUE: After the administration of oral and intravenous contrast, 5 mm thick sections acquired from the lung apices to the symphysis. 5 mm coronal and sagittal reformats were performed, with additional 7 mm c oronal MIP reformats through the lungs. For radiation dose reduction, the following was used: autom ated exposure control, adjustment of mA and/or kV according to patient size. COMPARISON: None. FINDINGS: Image quality: Excellent. CHEST: Lungs and pleura: No acute airspace opacities. No pleural effusions or pneumothorax. Central and p eripheral airways appear patent and normal in caliber. Mediastinum: Heart size is enlarged. There is calcification of the coronary vasculature. No pericard ial effusion. 9 mm short axis subcarinal lymph node. Thoracic aorta and central pulmonary arteries ar e normal in size. Esophagus is normal in caliber there is an exophytic intraluminal mass involving t he distal esophagus, measuring 26 mm.. No hiatal hernia. Chest wall: No axillary or supraclavicular adenopathy by size criteria. Thyroid gland is grossly un remarkable. ABDOMEN: Solid organs: Liver and spleen are normal in size. Multiple hepatic masses are present, indicating a severe degree of hepatic metastatic disease. Largest of these are within the medial segment left hep atic lobe both superiorly and inferiorly measuring 50 mm each. Gallbladder is within normal limits. Biliary system is non dilated. Pancreas enhances normally. No adrenal nodules. Left superior pole r enal scarring is present. Kidneys demonstrate otherwise normal size. Within the medial aspect of the right interpolar kidney posteriorly, there is a 42 mm diameter hypoenhancing heterogeneous mass. Peritoneum and bowel: Bowel loops demonstrate normal wall thickness and caliber. No free fluid or a ir. Nodes and vessels: 12 mm diameter gastrohepatic ligament lymph node is present. Aorta and inferior ve na cava are normal in size. Miscellaneous: No ventral hernias. PELVIS: Genitourinary: Bladder wall thickness is normal. Miscellaneous: No inguinal hernias or adenopathy. Bones: No suspicious bony lesions. No vertebral body compression fractures. IMPRESSION: 1. 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 2. Coronary artery disease. 3. Gastrohepatic ligament prieto metastasis. Possible subcarinal prieto metastasis. 4. Findings discussed with Dr. Sheriff on 01.24.17 at 1152 hrs. Dictated by: Bimal Valdez M.D. on 01/24/2017 at 11:51 Approved by: Bimal Valdez M.D. on 01/24/2017 at 11:56
--- NOTE | 2017-01-24 12:41 | NUR ---
Palliative Care Palliative Care received verbal order from Dr Reddy 01/24/17 to assist with goals of care. Patient admitted 01/22/17. He lives at home with his . Yoni Adame () [phone] Ольга Terrell (daughter) [phone] Palliative Care to follow. Melinda Peterson
[2017-01-24 13:50] LABS: BASOPHILS % (AUTO) 0.3 % (0-3); EOSINOPHILS % (AUTO) 0.6 % (0-5); MONOCYTES % (AUTO) 6.8 % (4-12); Mean Corpuscular Hemoglobin 29.5 pg (27.0-35.0); Mean Corpuscular Volume 90.8 fL (81-100); NEUTROPHILS % (AUTO) 84.4 % (40-74); Platelet Count 226 bil/L (150-400)
--- NOTE | 2017-01-24 14:47 | PCM.PNMED ---
Subjective Date of Service Jan 24, 2017 Subjective Patient was seen and examined today prior to receiving report on his CT scan, at the time he was quite alert and cogent and had a very clear understanding of his current medical situation which he was able to articulate back to me. Unfortunately, his CT scan indicated extensive metastatic disease with neoplastic process in the distal esophagus, liver, and kidney. I spoke with Dr. Sheriff who was agreeable to speak with the patient regarding his diagnosis, he will also meet with Dr. Katz to explore his treatment options which likely include palliative Chemo therapy. The patient himself complains of burning pain in his esophagus worsened with solids, fatigue, and very poor appetite. There we no significant overnight events. Comprehensive ROS negative except as listed above. Exam Vital Signs Vital Sign - Last Date Time Temp Pulse Resp B/P Pulse Ox O2 Delivery O2 Flow Rate FiO2 01/24/17 14:07 37.0 110 22 166/63 99 Nasal Cannula 2.00 Intake and Output 01/23/17 01/23/17 01/24/17 Cumulative From/Thru 15:00 23:00 07:00 01/22/17 15:37 - 01/24/17 06:30 Intake Total 200 ml 1338 ml 3138 ml Output Total 1150 ml 850 ml 3000 ml Balance -950 ml 488 ml 138 ml Intake Oral 0 ml 300 ml 900 ml IV Total 200 ml 280 ml 1480 ml FFP 758 ml 758 ml Output Urine Total 1150 ml 850 ml 3000 ml # Voids 2 5 # Bowel Movements 0 0 Exam Gen: A/O x3 pleasant cooperative gentleman in NAD Neck: supple, moderately tender to palpation at the anterior base, no thyromegaly, no JVD HEENT: PERRL, EOMI, no scleral icterus, no conjunctival pallor CV: RRR, no murmurs rubs or gallops Resp: Lungs CTA BL, no wheezing rales or rhonchi Abd: Soft, mild tenderness to palpation in RUQ, BS +4Q, no rebound or guarding Extr: No clubbing, cyanosis, or edema Neuro: CN 2-12, no focal neurologic deficit Psych: Patient with pleasant and appropriate mood and affect. IVs and Medications Medications Reviewed: Medications were reviewed in detail Lab and Diagnostics 250 ml NS delivered with IV meds Result Diagram: 01/24/17 1340 01/24/17 0455 X-Rays, CTs and MRIs X-RAY CHEST, TWO VIEWS IMPRESSION: 1. No acute cardiopulmonary disease. Dictated by: Trevor Perez M.D. on 01/22/2017 at 18:25 CT CHEST, ABDOMEN AND PELVIS [facility] CONTRAST IMPRESSION: 1. Primary distal esophageal neoplasm, with severe hepatic metastatic disease, as well as a right renal metastasis. 2. Coronary artery disease. 3. Gastrohepatic ligament prieto metastasis. Possible subcarinal prieto metastasis. 4. Findings discussed with Dr. Sheriff on 01.24.17 at 1152 hrs. Dictated by: Bimal Valdez M.D. on 01/24/2017 at 11:51 Approved by: Bimal Valdez M.D. on 01/24/2017 at 11:56 . Assessment & Plan Patient is a 66-year-old male with past medical history remarkable for coronary artery disease post-CABG and 21 stents, GI bleed secondary Ronda-Layne tear on EGD in August 2015 presents to [facility] from urgent care due to fatigue and anorexia. Patient underwent upper endoscopy which revealed friable bleeding mass in the distal esophagus suspicious for malignancy. Follow up CT scan to characterize his potential neoplastic burden revealed a large distal esophageal mass, with further likely neoplastic process in the liver and kidney. The patient will have discussions with Dr. Sheriff from GI and Dr. Katz from oncology about his potential treatment options which will likely include palliative radiation. Extensive as yet unidentified neoplastic process, POA, acute. Active - possibly secondary to history of Non Hodgkin lymphoma and prior radiation and chemo - Patient with very discouraging CT results as above - Neoplasm in the esophagus, liver, and kidney - As yet uncertain which mass represents the primary versus metastatic disease - plan to repeat EGD on 01/27/17, after 5 days off plavix, for likely tissue biopsy - Dr. Katz from oncology has been consulted and we appreciate his Acute blood loose Anemia, POA, acute. Active - secondary to friable ulcerated mass as above - Patient given 2U PRBC - Patient given 2U FFP to reverse INR to goal around 1.5 - Will repeat exploratory upper endoscopy to evaluation for resolution of acute bleed - Once resolution has been established will convert to heparin drip until biopsy date Unintentional weight loss, POA, acute on chronic. Active - Patient describes a 15-20 pound weight loss since October with notable abdominal discomfort after eating, solids >liquids - secondary to neoplastic process as above - Clear liquids while awaiting identification of esophageal mass Coronary artery disease, POA, chronic. Active - History of 21 stents placed, greater than 1 year ago, prior CABG - Hold aspirin and Plavix for possible due to GI bleed - Will place patient on Heparin drip as soon as resolution of acute bleed can be identified - Spoke with patient's [employer]ator Dr. Valdez based in [place], he agrees with the above plan, this is the provider who performed many of the patient's extensive cardiac surgeries Aortic stenosis, s/p mechanical aortic valve replacement in 2001 on chronic anticoagulation, POA, chronic. Active - Hold warfarin as above - Will place on Heparin drip when possible as above chronic, stable Paroxysmal atrial fibrillation, POA, chronic. Active - Patient is on chronic warfarin therapy - Holding Warfarin due to active GI bleed - Patient with rates in 110-120 range, sinus tachycardia - Likely secondary to understandable anxiety and pain due to severity of diagnosis - Will consider rate control if patient manifesting higher or malignant rhythm Chronic kidney disease likely stage IIIB, POA, chronic. Active - Creatinine currently at 1.9 likely baseline is around 1.7. Patient received 1 L normal saline IV in the ED - Avoid nephrotoxic insults when possible - Ok to continue outpatient Losartan when patient develops HTN will hold as normotensive currently Hypothyroid, Continue levothyroxine 88 g daily Diabetes mellitus type II. Hold glimepiride given nothing by mouth for possible GI procedure, Low correction scale lispro Essential tremor - History of gamma knife ablation - Okay to continue propranolol if symptomatic Hyperlipidemia. - Holding cholesterol medication Hypertension. - holding antihypertensive medications as patient is normotensive with concern about acute bleed - restart when proven hemodynamically stable Disposition: Patient will remain inpatient at least until 01/27/17 to facilitate expeditious EGD with biopsy of esophageal mass following 5 days off plavix, likely DC home 01/28/17 depending upon clinical recovery from that procedure. Pain Evaluation: Adequate Pain Control GI Prophylaxis: Proton Pump Inhibitor VTE Prophylaxis: SCDs, Other (withholding anticoagulation due to active GI bleed) VTE Mechanical Devices: Intermittant Pneumatic CD Resuscitation Status: CPR: Attempt Resuscitation Attending Statement The patient was seen and examined together with Dr. Reddy on 01/24/2017 and I agree with the history, exam and plan as outlined in the note above. . Natanael Reddy DO Jan 24, 2017 14:47 Stewart Preciado MD Jan 25, 2017 17:39
--- NOTE | 2017-01-24 16:11 | NUR ---
CT results see CT results, esophageal mass, renal mass, and liver mass indicating possibly advanced cancer. Dr Toledo gave pt and his ct results. Pt and spouse seem to be processing. Plan for biopsy of esophageal mass on monday Dr Cloud to come see pt and family today.
--- NOTE | 2017-01-24 17:23 | PROG NOTE ---
[address] [address] PROGRESS NOTE PATIENT: JAIDEN RODAS : 1950 MR#: [id number] ADMIT: 01/22/2017 JOB ID: [id number] DATE: 01/24/2017 SUBJECTIVE: The patient had one black stool this morning. Otherwise, he is a little hungry. Mild abdominal discomfort in the mid abdomen. CAT scan was reviewed in detail at the bedside with the patient and his . I explained the gravity of the situation and that Dr. Katz would be by this afternoon. OBJECTIVE: Vitals noted blood pressure 166/63, pulse in the 110 range, afebrile, 99% on room air. The patient is conversational, in no distress. LABORATORY DATA: Hemoglobin is up to 9.6 after 2 units of blood this morning. White count 9.8. INR is 1.57. Liver chemistries are normal. Creatinine is 1.53 (he received a liter of saline before and a liter after his CAT scan this morning.) ASSESSMENT AND PLAN: A 66-year-old male with a stage IV process. The primary is a little uncertain, but appears to possibly be either proximal gastric or distal esophageal in origin. There is evidence of a renal mass on CT on the right side. For now, I recommend we continue holding the aspirin, Plavix and Coumadin. Continue to monitor CBC. Repeat full complement of labs tomorrow and will repeat an endoscopy to evaluate for any ongoing oozing. If everything looks as though it has spontaneously stopped bleeding, then I think that we temporarily bridge with the likes of heparin and then repeat EGD on Monday afternoon for tissue acquisition to establish the origin of the malignancy. For now, smoothie diet until midnight, then clears after midnight would be fine.
--- NOTE | 2017-01-24 19:49 | CONS ---
[address] [address] CONSULTATION REPORT PATIENT: JAIDEN RODAS : 1950 MR#: [id number] ADMIT: 01/22/2017 JOB ID: [id number] DATE OF SERVICE: 01/24/2017 REQUESTING PROVIDER: Carroll Sheriff MD. 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 HISTORY OF PRESENT ILLNESS: The patient is a very pleasant, 66-year-old gentleman, who is currently admitted to hospital for recent development of upper GI bleeding, associated with melenic stools, progressive anemia, progressive weakness and weight loss. He initially presented back in August 2016 with black stools, in the context of vigorous coughing and dyspnea from a respiratory infection. He underwent EGD on September 02, 2016, by Dr. Sheriff, and had a classic finding of a Ronda-Layne tear with active bleeding, that was injected with epinephrine, to which he responded very well. Later, he developed some intermittent dysphagia which was unexpected, and therefore, had a barium swallow study on November 08, demonstrating small reducible hiatal hernia and mild GE reflux. Subsequently, his dysphagia did not completely resolve and he developed some epigastric pain and dyspeptic symptoms, and was recommended to undergo right upper quadrant ultrasound, which was done yesterday, demonstrating heterogeneous echotexture of liver, suggestive of infiltrative/metastatic process. In the meantime, recently he developed melenic stools again, with drop in hematocrit. He therefore was readmitted to hospital yesterday and underwent EGD by Dr. Sheriff, which now shows an ulcerated excavated mass at GE junction, measuring about 2 cm in size. Biopsy was not taken given that INR was 2.42 before procedure, and the patient had Plavix and aspirin on board, and the lesion was actively oozing. He is now scheduled for a repeat EGD tomorrow with biopsy. His INR has been reversed partially, and as of this morning was 1.57. CT scan of the chest, abdomen, and pelvis with contrast was obtained today, which unfortunately shows extensive metastatic disease. There is an exophytic intraluminal mass within distal esophagus. There are numerous hepatic masses, consistent with severe hepatic metastatic disease. The largest measures 5 cm in size in medial segment of left hepatic lobe. There is also a 4.2 cm hypo-enhancing heterogeneous mass within the medial aspect of the right interpolar kidney posteriorly, most consistent with a primary renal cell carcinoma. There is a 1.2 cm gastrohepatic ligament lymph node. PAST MEDICAL HISTORY: 1. Gastroesophageal reflux disease. 2. Remote history of Hodgkin disease treated with mantle field radiotherapy in . 3. [place] mechanical aortic valve. 4. Coronary artery disease, with preserved LV ejection fraction. The patient underwent coronary artery bypass graft surgery in 2000 and subsequently has had many coronary stents placed, in fact 21, and the more recent ones have all been placed through upper extremity approach. 5. Chronic kidney disease. 6. Essential tremor. He underwent Gamma Knife radiotherapy for this five or six years ago. 7. Non-melanoma skin cancers. 8. Chronic depression. 9. Anxiety. 10. Hypertension. 11. Hyperlipidemia. 12. Atrial fibrillation. 13. Cluster headaches. PAST SURGICAL HISTORY: 1. Coronary artery bypass graft surgery in 2000. 2. [place]ravan aortic valve replacement. 3. Coronary stents x21. 4. Gamma Knife radiotherapy for essential tremor. SOCIAL HISTORY: He is and lives in [place]. He quit smoking many years ago. He drinks alcohol occasionally and socially. 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 MEDICATIONS: Reviewed in chart. REVIEW OF SYSTEMS: Positive for intermittent solid dysphagia, anorexia, and progressive unintentional weight loss. Performance status 1 on ECOG scale. OBJECTIVE: Very pleasant gentleman, in good spirits and no discomfort. Awake, alert, oriented x3. Blood pressure 160/64, heart rate 113, temperature afebrile. HEENT normal. Neck supple without adenopathy. Lungs: Clear to auscultation bilaterally. Cardiac: Regular rate and rhythm. Abdomen soft and nontender, without palpable hepatomegaly. Lower extremities: No edema. LABORATORY DATA: Liver function tests are completely normal. Creatinine is at 1.53, but chronically elevated. Hai hemoglobin was 7.1, but after transfusion today, has increased to 9.6. 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 Tomorrow, he will undergo EGD and biopsy. Warfarin, Plavix and aspirin have all been put on hold. Given that Plavix and aspirin were last taken about three days ago, I have left an order in the chart for 2 units of single donor platelets an hour before EGD to prevent post biopsy bleeding. Also, given that he is in a short window tomorrow to have invasive procedures done, I have requested Dr. Laurent Owusu to schedule for port placement tomorrow after EGD as well. He will transfer this request to on-call general surgeon tomorrow for port placement after EGD. His right renal mass most likely represents a primary renal cell carcinoma but there is a small possibility that this disease process is metastatic renal cell carcinoma with metastases to distal esophagus, and liver, but I think that would be quite unlikely. I had a long conversation with patient today and we mostly discussed prognosis and treatment of stage IV distal esophageal adenocarcinoma. He very well understands that this unfortunately represents an incurable disease, and that palliative chemotherapy usually adds few to several months to survival. He is interested in palliative chemotherapy as long as his quality of life is reasonably preserved. At this point, my plan is to treat him with FOLFIRI chemotherapy, plus or minus trastuzumab based on HER-2 expression, once histology is confirmed. I will follow up with patient in oncology clinic next week to review pathology report and plan to start therapy. Thank you, Dr. Sheriff, for referring this very pleasant gentleman. Addendum: Also,given possibility of early stage GEJ adenocarcinoma + metastatic RCC to liver, I recommend US-guided core needle biopsy of liver as well tomorrow. MTDD
[2017-01-24 20:31] LABS: BASOPHILS % (AUTO) 0.3 % (0-3); EOSINOPHILS % (AUTO) 0.8 % (0-5); MONOCYTES % (AUTO) 8.5 % (4-12); Mean Corpuscular Hemoglobin 29.6 pg (27.0-35.0); Mean Corpuscular Volume 90.4 fL (81-100); NEUTROPHILS % (AUTO) 80.1 % (40-74); Platelet Count 244 bil/L (150-400)
[2017-01-25] VITALS (23 sets, daily range): BP systolic 112–169; BP diastolic 50–79; PULSE 87–126; RESP 15–22; O2SAT 94–100
--- NOTE | 2017-01-25 01:02 | NUR ---
BS/PLATELETS Pt BS 192, gave 1 unit, Pt NPO after midnight for a scheduled EGD w/biopsy and possible Portacath placement. Pt to receive 2 units platelets 1 hour prior to surgery regardless of platelet count. Pt A&Ox3, denies numbness or tingling in extremities, independent in room, no other issues noted at this time. Addendum: 01/25/17 at 0311 by TERE KAISER RN 3am BS check @ 111
[2017-01-25] MEDS: Insulin REGULAR SS Low-Dose SUBQ SCH ×4 (02:12→20:39)
[2017-01-25 02:37] LABS: BASOPHILS % (AUTO) 0.5 % (0-3); MONOCYTES % (AUTO) 11.6 % (4-12); Mean Corpuscular Hemoglobin 29.4 pg (27.0-35.0); Mean Corpuscular Volume 90.8 fL (81-100); NEUTROPHILS % (AUTO) 74.3 % (40-74); Platelet Count 226 bil/L (150-400)
[2017-01-25 02:53] LABS: INR 1.77 ratio
[2017-01-25 03:00] LABS: Magnesium 1.7 mg/dL (1.6-2.6); Phosphorus 2.8 mg/dL (2.5-4.9)
--- NOTE | 2017-01-25 08:36 | CONS ---
[address] [address] CONSULTATION REPORT PATIENT: JAIDEN RODAS : 1950 MR#: [id number] ADMIT: 01/22/2017 JOB ID: [id number] DATE OF SERVICE: 01/25/2017 CHIEF COMPLAINT: This is a 66-year-old man for whom I am consulted for port placement at the request of Dr. Katz. HISTORY OF PRESENT ILLNESS: This is a 66-year-old man who was admitted to the hospital with upper GI bleeding, melena, anemia, weakness, and weight loss. He has had recent dysphagia and also has a mechanical aortic valve and therefore is on Coumadin, Plavix, and aspirin at baseline. He has been scheduled for EGD with biopsies today and therefore is receiving platelets and FFP. A recent EGD shows an ulcerated mass at the GE junction and CT scan showed liver metastases. There is also a worrisome hypo-enhancing mass within the medial aspect of the right kidney. The request has been made it to get multiple procedures done quickly given his need to be off of anticoagulation for this purpose in the setting of his aortic heart valve. PAST MEDICAL HISTORY: 1. GERD, Hodgkin lymphoma, treated with mantle field radiotherapy in the . 2. [place]ravan mechanical aortic valve. 3. Coronary artery disease. The patient reports that he has 21 coronary stents. 4. Chronic kidney disease. 5. Essential tremor status post gamma knife radiotherapy. 6. Non-melanoma skin cancers. 7. Chronic depression. 8. Anxiety. 9. Hypertension. 10. Hyperlipidemia. 11. Atrial fibrillation. 12. Cluster headaches. PAST SURGICAL HISTORY: 1. Coronary artery bypass graft surgery in 2000. 2. [place]ravan aortic valve replacement. 3. Coronary stents x21. 4. Gamma knife radiotherapy for central tremor. 5. Right-sided neck biopsy in the when he had Hodgkin lymphoma. MEDICATIONS: Current medications are reviewed. Plavix, aspirin, and Coumadin are being held in anticipation of EGD with biopsy today. ALLERGIES: No known drug allergies. FAMILY HISTORY: His mother had breast cancer, father had diabetes type 2. Three daughters, one has an essential tremor. SOCIAL HISTORY: He is a former smoker and quit in 1999. He smoked for 15 years. He has been using edible marijuana in the last two months twice. He does consume alcohol. He lives with family. He moved to this area from [place] and most of his cardiac treatment was in that region. REVIEW OF SYSTEMS: A 14-point review of systems is positive for melena, fatigue, GI bleeding, weight loss, dyspepsia, dysphagia. Weight loss is approximately 15-20 pounds in the last three months. PHYSICAL EXAMINATION: Temperature 36.9, heart rate 102, respiratory rate of 18, blood pressure 118/63, saturation 96% on room air. General: Awake and alert, no acute distress. Head normocephalic. He has a right-sided neck incision from previous biopsy. Respiratory clear to auscultation bilaterally. Cardiac regular rate and rhythm, with a systolic murmur and loud valvular sounds consistent with known mechanical valve. He also has an eschar from previous sternotomy. Abdomen soft, nontender, nondistended. Extremities no edema. Neurologic: No gross deficits. Psychiatric: Normal cognition and judgment. DIAGNOSTIC DATA: White blood cell count is 9.8, hematocrit 27.8, platelets 226. Comprehensive metabolic panel is within normal limits with exception of creatinine 1.37 and calcium 8.4. Last INR was 1.77 at 2:[address] scan of the chest, abdomen, and pelvis reveals a mass at the GE junction, hepatic metastases, right renal disease consistent with metastasis, gastrohepatic ligament, prieto metastasis, and possible subcarinal prieto metastasis, and coronary artery disease. ASSESSMENT: A 66-year-old man with widely metastatic cancer most likely of gastroesophageal junction origin. He also has a mechanical heart valve and is going off of his anticoagulation today for esophagogastroduodenoscopy with biopsy. Port placement is recommended in this timeframe in order to keep the window of time he is off of the anticoagulation small. PLAN: I have added him to the operative schedule for late this afternoon to have a port placed. The risks and benefits were discussed including the risk of bleeding, infection, and injury to surrounding structures including the great vessels. He understands and elects to proceed.
--- NOTE | 2017-01-25 11:18 | NUR ---
Telemetry Clarification: Aflutter Patient was Sinus Rhythm in the 110s at admit. Following documented rhythm strip at 19:50 on 01/24, patient converted to Aflutter in the 110-120s. Aflutter confirmed with 12-lead 01/25 10:32. In the past 24 hours, patient has had a progressively inverting T wave in lead II. RAFFAELE Carranza aware of changes.
--- NOTE | 2017-01-25 11:36 | NUR ---
TITO Signed @ 1008AM
--- NOTE | 2017-01-25 11:46 | PCM.CONPAL ---
Date of Service Jan 25, 2017 Date of Hospital Admission: Jan 22, 2017 at 20:29 Date of Palliative Consult: Jan 25, 2017 Reason Palliative Care Consult: Goals of Care Discussion Reason for Consultation Palliative Care received verbal order from Dr Reddy 01/24/17 to assist with goals of care. Patient admitted 01/22/17. He lives at home with his . Yoni Adame () [phone] Ольга Terrell (daughter) [phone] Hospital Unit @time of consult: Progressive Care (Room 2010) Palliative Care Recommendation Summary of palliative recommendations: Symptom management (Pain/other): per Attending Hospitalist Team DPOA/Advanced Directives/POLST:Krista Mcqueen and Regine met with patient today. He is alert and capacitated. He understands his likely diagnosis and prognosis and is prepared to attempt palliative chemotherapy but he would not want to have heroic measures at end of life. 1. He signed a POLST today stating: DNR/DNI/limited interventions/ antibiotics depending on situation--not to prolong life is he is dying/no feeding tubes. The original paperwork is in the chart, he has two copies in his room, PC office has a copy. 2. Regarding limited interventions: He would be willing to have IV antibiotics, pain and other symptom medicines, pressors and anti-arrhythmics ( he has significant heart disease) as long as there were a good chance to reverse his temporary condition. He is wishing to engage in palliative chemotherapy. Family/emotional support: excellent. He lives with his . His daughter is an RN in PCC at [facility]. Spiritual support:not addressed. Additional Medical Diagnoses with primary management by Hospitalist team include : 1. 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 2. Acute blood loss anemia. 3. Unintentional weight loss, POA, acute on chronic. Active 4. Coronary artery disease, POA, chronic. Active - History of 21 stents placed, greater than 1 year ago, prior CABG - Hold aspirin and Plavix for possible due to GI bleed - Will place patient on Heparin drip as soon as resolution of acute bleed can be identified - Spoke with patient's Military Technology Manager Dr. Valdez based in [place], he agrees with the above plan, this is the provider who performed many of the patient's extensive cardiac surgeries 5. Aortic stenosis, s/p mechanical aortic valve replacement in 2001 on chronic anticoagulation, POA, chronic. Active 6. Paroxysmal atrial fibrillation, POA, chronic. Active - Patient is on chronic warfarin therapy - Holding Warfarin due to active GI bleed 7. Chronic kidney disease likely stage IIIB, POA, chronic. Active 8. Hypothyroid, Continue levothyroxine 88 g daily 9. Diabetes mellitus type II. 10. Essential tremor - History of gamma knife ablation 11. Hyperlipidemia. 12. Hypertension. Problems: Goals of Care DNR/DNI with limited interventions to include palliative chemotherapy Disposition To be determined Resuscitation Status Resuscitation Status: DNR/DNI:Do Not Resuscitate/Intubate POLST Updates/Changes Previous POLST?: No POLST Last Review Date: Jan 25, 2017 Antibiotics: Determine Use or Limitations Artificially Admin Nutrition: No Artifical Nutrition by Tube POLST Discussed with: Patient POLST Review Outcome: New Form Completed . Advanced Care Planning Address: POLST, Code status change Pt History History of Present Illness Patient is a 66-year-old male with past medical history remarkable for coronary artery disease post-CABG and 21 stents, GI bleed secondary Ronda-Layne tear on EGD in August 2015 presents to [facility] from urgent care due to fatigue and anorexia. The patient states that he was last seen by his company laundry worker on January 20 and since that time he has developed worsening dark stools. The patient denies any blood-streaked stool or severe tarry stools, and denies any recent nausea or vomiting recently. The patient was seen in urgent care today and diagnosed with anemia with positive stool guaiac as well as an enlarged prostate. The patient states that he feels similar to that of being anemic in the past. The patient denies any chest pain on exertion stating that he was able to do 40 minutes on a treadmill for cardiac rehabilitation without issue. The patient was recently started on cetirizine for allergies. The patient states that he has been losing weight recently with a decrease in his appetite and worsening dyspepsia upon eating. The right loss is reported to be approximately 15-20 pounds since October. The patient denies any recent headaches, night sweats, unusual bruising or bleeding. He was admitted for upper GI bleeding, melenic stools, progressive anemia, with weakness and weight loss. Hospital Course: On workup, he underwent right upper quadrant ultrasound which demonstrated heterogeneous echotexture of liver, suggestive of infiltrative/ metastatic process. In the meantime, he developed melenic stools again, with drop in hematocrit. He underwent EGD by Dr. Sheriff, who found an ulcerated excavated mass at GE junction, measuring about 2 cm in size. Biopsy was not taken given that INR was 2.42 before procedure, and the patient had Plavix and aspirin on board, and the lesion was actively oozing. He is now scheduled for a repeat EGD at 3pm today with biopsy. CT scan of the chest, abdomen, and pelvis with contrast was obtained, and unfortunately shows extensive metastatic disease. There is an exophytic intraluminal mass within distal esophagus. There are numerous hepatic masses, consistent with severe hepatic metastatic disease. The largest measures 5 cm in size in medial segment of left hepatic lobe. There is also a 4.2 cm hypo- enhancing heterogeneous mass within the medial aspect of the right interpolar kidney posteriorly, most consistent with a primary renal cell carcinoma. There is a 1.2 cm gastrohepatic ligament lymph node. Past Medical History Significant PMH Noted: 1. GERD, Hodgkin lymphoma, treated with mantle field radiotherapy in the . 2. [place] mechanical aortic valve. 3. Coronary artery disease. The patient reports that he has 21 coronary stents. 4. Chronic kidney disease. 5. Essential tremor status post gamma knife radiotherapy. 6. Non-melanoma skin cancers. 7. Chronic depression. 8. Anxiety. 9. Hypertension. 10. Hyperlipidemia. 11. Atrial fibrillation. 12. Cluster headaches. PAST SURGICAL HISTORY: 1. Coronary artery bypass graft surgery in 2000. 2. [place] aortic valve replacement. 3. Coronary stents x21. 4. Gamma knife radiotherapy for central tremor. 5. Right-sided neck biopsy in the when he had Hodgkin lymphoma. Family History Mother with breast cancer. Father with diabetes mellitus type II. Sister who is healthy. 3 daughters one of which has an essential tremor. Social History Hx Alcohol Use: Yes Hx Substance Use: Yes (30+ yrs ago frequent marijuana user; Edible marijuana 2x in last 2 mo.s) Hx Tobacco Use: Yes Smoking Status: Former Smoker (Quit in 1999) Years of Smokin Living Arrangement: with Family Allergy Allergies Reviewed: Yes Medications Current Medications: Current Medications Insulin Human Regular * Low Dose Insulin Algori... Q6 SUBQ Last administered on 01/25/17 08:21; Admin Dose 1 UNIT; Start 01/23/17 at 14:30 Oxycodone/ Acetaminophen 1-2 TABLS Q6H PRN PO Last administered on 01/24/17t 20 :56; Admin Dose 2 TAB; Start 01/23/17 at 23:45 Sodium Chloride 250 ml @ 10 mls/hr Q24H IV; Start 01/24/17 at 05:25 Scheduled Ascorbic Acid (Vitamin C) 1,000 Mg Tab.chew 1,000 MG PO QAM Aspirin (Aspirin) 81 Mg Tablet 81 MG PO QAM Atorvastatin (Lipitor) 20 Mg Tablet 20 MG PO HS Calcitriol (Rocaltrol) 0.25 Mcg Capsule 0.25 MG PO Mon, Mon, Mon Cetirizine Chew (Cetirizine Chew) 10 Mg Tab.chew 10 MG PO HS Clopidogrel Bisulfate (Plavix) 75 Mg Tablet 75 MG PO QAM Ergocalciferol (Vitamin D2) (Vitamin D) 400 Unit Tablet 400 UNIT PO QAM Ezetimibe (Zetia) 10 Mg Tablet 10 MG PO HS Ferrous Gluconate (Ferrous Gluconate) 324 Mg Tab 324 MG PO BIDWM Glimepiride (Glimepiride) 1 Mg Tablet 0.5 MG PO DAILYAC Levothyroxine (Levothyroxine) 88 Mcg Tablet 88 MCG PO QAM Losartan Potassium (Losartan Potassium) 50 Mg Tablet 50 MG PO HS LOSARTAN 25 MG IN AM, LOSARTAN 50 MG AT HS Losartan Potassium (Losartan Potassium) 25 Mg Tablet 25 MG PO QAM LOSARTAN 25 MG IN AM, LOSARTAN 50 MG AT HS [place]-3/Dha/Epa/Fish Oil (Fish Oil 1,000 mg Softgel) 1 Each Capsule 1 EACH PO BIDWM Pantoprazole DR (Pantoprazole DR) 40 Mg Tablet.dr 40 MG PO BIDAC Propranolol ER (Inderal LA) 80 Mg Capsule 80 MG PO HS Pumpkin Seed Oil/Saw Stratford (Saw Stratford 160 mg Softgel) 160 Mg Capsule 160 MG PO QAM Ubidecarenone/Vit E Acetate (Co Q-10 100 mg Softgel) 1 Each Capsule 100 MG PO QAM Warfarin Sodium (Warfarin Sodium) 5 Mg Tablet 5 MG PO DAILY EXCEPT TUE/DORIS WARFARIN 7.5 MG TUES/TH AND 5 MG ALL OTHER DAYS Warfarin Sodium (Warfarin Sodium) 5 Mg Tablet 7.5 MG PO TUES/THURS WARFARIN 7.5 MG TUES/ AND 5 MG ALL OTHER DAYS Objective Findings Exam Vital Sign - Last Date Time Temp Pulse Resp B/P Pulse Ox O2 Delivery O2 Flow Rate FiO2 01/25/17 10:40 126 01/25/17 08:02 36.5 20 144/71 97 Room Air 01/24/17 14:07 2.00 Intake and Output 01/24/17 01/24/17 01/25/17 Cumulative From/Thru 15:00 23:00 07:00 01/22/17 15:37 - 01/25/17 06:17 Intake Total 800 ml 3520 ml 950 ml 8408 ml Output Total 1620 ml 800 ml 5420 ml Balance 800 ml 1900 ml 150 ml 2988 ml Intake Oral 720 ml 840 ml 2460 ml IV Total 100 ml 2800 ml 110 ml 4490 ml Packed Cells 700 ml 700 ml FFP 758 ml Output Urine Total 1620 ml 800 ml 5420 ml # Voids 2 7 # Bowel Movements 1 1 General: Alert/Oriented x3, Person, Place, Time, Situation, No acute distress HEENT: Atraumatic, PERRLA, EOMI, Scleral Anicteric Neuro: Exam Intact Extremities: No Edema Lab/Diagnostics Lab and Imaging results reviewed in detail in EMR. Time spent Total time 50 minutes; >50% face to face with patient and/or family, providing counselling regarding plans and recommendations, and in care coordination with his/her medical teams. I also spent an additional 30 minutes counseling for advanced care planning with the patient/the patients family/the surrogate decision maker. Osiris Mcqueen MD Jan 25, 2017 11:46 I also spent an additional [ ] minutes counseling for advanced care planning with the patient/the patients family/the surrogate decision maker. Osiris Mcqueen MD Jan 25, 2017 11:46
[2017-01-25] MEDS: Pantoprazole Inj 80 MG in 0.9% Sodium Chloride 80 ML IV SCH ×2 (13:57→20:36)
[2017-01-25] MEDS ORDERED: Propofol 10,000 mCg/mL 20 mL Inj ONE (14:26)
--- NOTE | 2017-01-25 14:39 | NUR ---
NUTRITION FOLLOW-UP: ASSESS: 66YO M admit with black tarry stools, fatigue, reported 15-20lb weight loss x 3mos with discomfort after eating (9%wt loss x 3 months=severe). Pt had a CT scan that indicated extensive metastatic disease with neoplastic process in the distal esophagus, liver, and kidney. He is to have an EGD today with biopsy. Palliative care is involved and pt is DNR/DNI and does not want to have tube feeding. Pt is willing to try palliative chemotherapy. He is currently NPO for EGD. Prior to NPO he was on a Full Liquid diet which he tolerated 50% x 2 meals. PMHX: CAD s/p CABG,stents; GI bleed, hypothyroid,DM Type II,Essential Tremor, HTN DIET: NPO for procedure LABS: Reviewed. Hris Administrator 1.37, Glu 111, Ca 8.4, Alb 3.6 MEDS: Reviewed SKIN: [place] 20, no issues noted GI: BMx1 01/24 WEIGHT: 88.6kg, BMI: 25.1kg/m2, IBW: 86kg. UBW reported: 100.3kg; 20lb wt. loss x 3mos, 9% wt loss= Severe EST.NEEDS: WT GAIN, CA Kcal: 2660-3100kcal/day (30-35kcal/kg) Pro: 105-130g/day (1.2-1.5g/kg) NUTRITION DIAGNOSIS: (1) Severe malnutrition related to decreased appetite, abdominal discomfort with eating reported prior to admit as evidenced by reported 9% weight loss x 3mos, reported PO intake less than 75% of estimated needs and new diagnosis of esophageal ca with mets.--PERSISTS INTERVENTION: (1) Recommend advance diet when medically appropriate (2) Pt does not want TF per palliative care note (3) Will monitor PO intake once diet advanced and evaluate need for supps/snacks MONITOR/EVALUATE: PO, wt, GI, labs, POC, nutrition status. Will continue to monitor per high nutrition risk guidelines
--- NOTE | 2017-01-25 14:44 | PCM.PNMED ---
Subjective Date of Service Jan 25, 2017 Subjective Mr. Adame appears remarkably at peace given the nature of his diagnosis, unsure to what degree he has processed this dire news or is hopeful in waiting for further diagnostic testing to assuage his current grim prognosis. He states that he is otherwise well, he still suffers from esophageal pain and burning with swallowing, but this has improved with liquid diet. No significant overnight events Comprehensive ROS negative except as listed above. Exam Vital Signs Vital Sign - Last Date Time Temp Pulse Resp B/P Pulse Ox O2 Delivery O2 Flow Rate FiO2 01/25/17 12:59 36.4 125 135/67 01/25/17 12:41 18 01/25/17 11:53 98 Room Air 01/24/17 14:07 2.00 Intake and Output 01/24/17 01/24/17 01/25/17 Cumulative From/Thru 15:00 23:00 07:00 01/22/17 15:37 - 01/25/17 06:17 Intake Total 800 ml 3520 ml 950 ml 8408 ml Output Total 1620 ml 800 ml 5420 ml Balance 800 ml 1900 ml 150 ml 2988 ml Intake Oral 720 ml 840 ml 2460 ml IV Total 100 ml 2800 ml 110 ml 4490 ml Packed Cells 700 ml 700 ml FFP 758 ml Output Urine Total 1620 ml 800 ml 5420 ml # Voids 2 7 # Bowel Movements 1 1 Exam Gen: A/O x3 pleasant cooperative gentleman in NAD Neck: supple, no thyromegaly, no JVD HEENT: PERRL, EOMI, no scleral icterus, no conjunctival pallor CV: RRR, no murmurs rubs or gallops Resp: Lungs CTA BL, no wheezing rales or rhonchi Abd: Soft, mild tenderness to palpation in RUQ, BS +4Q, no rebound or guarding Extr: No clubbing, cyanosis, or edema Neuro: CN 2-12, no focal neurologic deficit Psych: Patient with pleasant and appropriate mood and affect. IVs and Medications Medications Reviewed: Medications were reviewed in detail Lab and Diagnostics 100 ml NS delivered with IV medication Result Diagram: 01/25/17 0230 01/25/17 0230 X-Rays, CTs and MRIs X-RAY CHEST, TWO VIEWS IMPRESSION: 1. No acute cardiopulmonary disease. Dictated by: Trevor Perez M.D. on 01/22/2017 at 18:25 CT CHEST, ABDOMEN AND PELVIS WT CONTRAST IMPRESSION: 1. Primary distal esophageal neoplasm, with severe hepatic metastatic disease, as well as a right renal metastasis. 2. Coronary artery disease. 3. Gastrohepatic ligament prieto metastasis. Possible subcarinal prieto metastasis. 4. Findings discussed with Dr. Sheriff on 17 at 1152 hrs. Dictated by: Bimal Valdez M.D. on 01/24/2017 at 11:51 Approved by: Bimal Valdez M.D. on 01/24/2017 at 11:56 . Assessment & Plan Patient is a 66-year-old male with past medical history remarkable for coronary artery disease post-CABG and 21 stents, GI bleed secondary what was determined to be Ronda-Layne tear on EGD in August [address] [facility] from urgent care due to fatigue and anorexia. Patient underwent upper endoscopy which revealed friable bleeding mass in the distal esophagus suspicious for malignancy. Follow up CT scan to characterize his potential neoplastic burden revealed a large distal esophageal mass, with further likely neoplastic process in the liver and kidney. The patient will undergo attempted liver biopsy, and repeat upper endoscopy. Extensive as yet unidentified neoplastic process, POA, acute. Active - possibly secondary to history of Non Hodgkin lymphoma and prior radiation and chemo - Patient with very discouraging CT results as above - Neoplasm in the esophagus, liver, and kidney - As yet uncertain which mass represents the primary versus metastatic disease - plan to repeat EGD on 01/27/17, after 5 days off plavix, for likely tissue biopsy - Dr. Katz from oncology and Dr. Sheriff from GI have been consulted and we appreciate their expertise - Will attempt to biopsy the liver in an attempt to characterize his process Acute blood loose Anemia, POA, acute. Active - secondary to friable ulcerated mass as above - Patient given 2U PRBC - Patient given 2U FFP to reverse INR to goal around 1.5 - Will continue to transfuse as necessary to keep Hg around 10 - Possible repeat exploratory upper endoscopy to evaluation for resolution of acute bleed - Once resolution has been established will convert to heparin drip until biopsy date Unintentional weight loss, POA, acute on chronic. Active - Patient describes a 15-20 pound weight loss since October with notable abdominal discomfort after eating, solids >liquids - secondary to neoplastic process as above - Clear liquids while awaiting identification of esophageal mass Coronary artery disease, POA, chronic. Active - History of 21 stents placed, greater than 1 year ago, prior CABG - Hold aspirin and Plavix for possible due to GI bleed - Will place patient on Heparin drip as soon as resolution of acute bleed can be identified - Spoke with patient's [employer] And Service Director Dr. Valdez based in [place], he agrees with the above plan, this is the provider who performed many of the patient's extensive cardiac surgeries Aortic stenosis, s/p mechanical aortic valve replacement in 2001 on chronic anticoagulation, POA, chronic. Active - Hold warfarin as above - Will place on Heparin drip when possible as above Paroxysmal atrial fibrillation, POA, chronic. Active - Patient is on chronic warfarin therapy - Holding Warfarin due to active GI bleed - Patient with rates in 110-120 range, sinus tachycardia - Conversion to Afib Aflutter 01/25/17 - Will consider rate control if patient manifesting higher or malignant rhythm - Will initiate beta blockage to attempt to control rate Chronic kidney disease likely stage IIIB, POA, chronic. Active - Creatinine currently at 1.9 likely baseline is around 1.7. Patient received 1 L normal saline IV in the ED - Avoid nephrotoxic insults when possible - Ok to continue outpatient Losartan when patient develops HTN will hold as normotensive currently Hypothyroid, Continue levothyroxine 88 g daily Diabetes mellitus type II. Hold glimepiride given nothing by mouth for possible GI procedure, Low correction scale lispro Essential tremor - History of gamma knife ablation - Okay to continue propranolol if symptomatic Hyperlipidemia. - Holding cholesterol medication Hypertension. - holding antihypertensive medications as patient is normotensive with concern about acute bleed - restart when proven hemodynamically stable Disposition: Patient will remain inpatient at least until 01/27/17 to facilitate expeditious EGD with biopsy of esophageal mass following 5 days off plavix, likely DC home 01/28/17 depending upon clinical recovery from that procedure. Pain Evaluation: Adequate Pain Control GI Prophylaxis: Proton Pump Inhibitor VTE Prophylaxis: SCDs, Other (withholding anticoagulation due to active GI bleed) VTE Mechanical Devices: Intermittant Pneumatic CD Resuscitation Status: DNR/DNI:Do Not Resuscitate/Intubate Attending Statement The patient was seen and examined together with Dr. Reddy on 01/25/2017 and I agree with the history, exam and plan as outlined in the note above. . Natanael Reddy DO Jan 25, 2017 14:44 Stewart Preciado MD Jan 25, 2017 17:40
[2017-01-25] MEDS ORDERED: Lactated Ringer's 1,000 ML IV ONE (16:32)
--- NOTE | 2017-01-25 16:38 | NUR ---
Social Work Note: Continued Discharge Planning Data& Assessment: SW received order to offer a hospice informational visit for pt and pt . SW met with pt at bedside to offer more information on Hospice. Pt not in room and out for testing. Pt explained that she and her were still very hopeful and optimistic and would like to see how pt biopsies go this week. Pt became tearful. Pt explained that meetings with the physicians this week have made them feel less hopeful and less comfortable with ongoing care here. SW provided patient advocate card. Emotional support provided. SW notified patient advocate and MD. Pt feels pt is at baseline mobility and is anxious for him to discharge home. SW to continue to follow for ongoing support and needs. Plan: Anticipated discharge home when medically stable. Pt denies any other needs at this time. SW to continue to follow. RIVER Brewster
[2017-01-25] MEDS ORDERED: HepLOK Flush 100 unit/mL 5 mL Inj IVFLUSH ONE (16:52)
[2017-01-25] MEDS ORDERED: Bupivacaine-MPF 0.25% 30 mL Inj INFILTRATE ONE (17:00)
[2017-01-25] MEDS ORDERED: Lactated Ringer's 1,000 ML IV SCH (17:44)
[2017-01-25] MEDS ORDERED: Lactated Ringer's 500 ML IV PRN (17:44)
[2017-01-25] MEDS ORDERED: MetoCLOpramide 5 mg/mL 2 mL Inj IVPUSH PRN (17:45)
[2017-01-25] MEDS ORDERED: EPHEDrine Sulfate 50 mg/mL Inj IVPUSH PRN (17:45)
[2017-01-25] MEDS ORDERED: Dexamethasone 4 mg/mL Inj IVPUSH PRN (17:45)
[2017-01-25] MEDS ORDERED: fentaNYL-PF 50 mCg/mL 2 mL Inj IVPUSH PRN (17:45)
[2017-01-25] MEDS ORDERED: Ondansetron 2 mg/mL 2 mL Inj IVPUSH PRN (17:45)
[2017-01-25] MEDS ORDERED: Phenylephrine 10,000 mCg/mL Inj IVPUSH PRN (17:45)
[2017-01-25] MEDS ORDERED: Atropine 0.4 mg/mL Inj IVPUSH PRN (17:45)
[2017-01-25] MEDS ORDERED: hydrALAZINE 20 mg/mL Inj IVPUSH PRN (17:45)
[2017-01-25] MEDS ORDERED: Labetalol 5 mg/mL 4 mL Inj IV PRN (17:45)
[2017-01-25] MEDS ORDERED: HYDROmorphone 1 mg/mL Inj IVPUSH PRN (17:45)
--- NOTE | 2017-01-25 17:46 | PCM.ANEP1 ---
Post Anesthesia PACU Phase 1 Assessment Date of Service: Jan 25, 2017 Vital Signs PACU 116 HR, RR 19, BP 129/53, T 36.4, O2 100% 10L Vital Signs Date Time Temp Pulse Resp B/P Pulse Ox O2 Delivery O2 Flow Rate FiO2 01/25/17 16:09 37.1 122 20 169/77 01/25/17 15:36 37 124 15 148/75 98 Room Air 01/25/17 15:36 37.0 124 15 148/75 01/25/17 14:57 36.3 88 20 147/76 01/25/17 14:26 36.9 125 16 135/71 01/25/17 12:59 36.4 125 135/67 01/25/17 12:41 36.5 122 18 145/76 01/25/17 11:53 36.8 87 18 158/79 98 Room Air 01/25/17 10:40 126 Anesthetic Administered: MAC Level of Alertness: Awake, talking WEI's with Equal Strength: Yes Pain: No Nausea or Vomiting: No CV Function & Hydration Stable: Yes Airway Device: Oralpharangeal Airway Oxygen Delivery: Simple Mask Lungs: Normal Air Movement PACU Phase 2 Assessment Complications: No Follow up Care: No Patient Instructions Provided: N/A Kentrell Carvalho MD Jan 25, 2017 17:46
--- NOTE | 2017-01-25 17:49 | PCM.SURGOP ---
Surgical Operative Report Date of Service: Jan 25, 2017 Pre Operative Diagnosis Metastatic cancer of the gastroesophageal junction Post Operative Diagnosis Metastatic cancer of the gastroesophageal junction Procedure: Left subclavian vein PowerPort placement with fluoroscopic guidance, with interpretation Surgeon and Scrub Technician: Surgeon: Racquel Hensley M.D. Assistants: KEKE Godfrey Indication for Procedure This is a 66-year-old man who was recently diagnosed with widely metastatic cancer most likely of gastroesophageal junction primary. He has a history of a mechanical heart valve and multiple cardiac stents and is on Coumadin, aspirin, and Plavix at baseline. To facilitate his workup as an inpatient, these medications were stopped and endoscopic biopsy, percutaneous liver biopsy, and port were requested in a short timeframe to minimize the amount of time he was off his anticoagulation. Findings: The port tip was at the cavoatrial junction at the end of the procedure. The port flushed easily. Procedure Details The patient was brought to the operating room and placed in supine position. General anesthesia with a LMA was smoothly induced. Antibiotics were infused. A warming blanket and SCDs were placed. A pause was performed to confirm the correct patient, procedure, site, and side. The left subclavian vein was accessed with a single stick, and a wire was threaded. Fluoroscopy confirmed the wires presence on the right side of the heart. A pocket was made in the tissue overlying the left pectoralis. The port was inserted and sewn into place with two interrupted Prolene stitches. It was then tunneled to the site of the wire. The port catheter was then cut to the appropriate size as previously measured by the wires position on fluoroscopy. Dilation was then performed under fluoroscopic guidance. The sheath was left in place and the catheter was inserted. The sheath was removed and the two sides were found to be completely intact. The tip of the port was found to be positioned at the cavoatrial junction on fluoroscopy. The catheter was not kinked on fluoroscopy. The port aspirated and flushed easily at the end of the case. It was infused with 10 mL of 100 units/mL heparin solution. The subcutaneous tissue overlying the port was closed with a 3-0 Vicryl stitch. The skin was closed with a 4-0 subcuticular Monocryl stitch. Marcaine 0.5% with epinephrine was injected in the skin overlying the port as well as the stick site. A sterile dressing was placed. The patient tolerated the procedure well. He was awakened from general anesthesia and taken to the postoperative care unit in good condition. Complications There were no periprocedural complications identified. Surgical Specimen Removed: No Specimen sent to Pathology: No Anesthetic Plan: MAC Grafts, Implants: Implants-See Implant Record Output, Estimated Blood Loss: 5 (ml) Blood Administration during kern: No Racquel Hensley MD Jan 25, 2017 17:49
--- NOTE | 2017-01-25 18:35 | NUR ---
Pt back from PACU Safe pt handoff from Kassandra CASTORENA. Pt transported in bed, transferred to his room bed with minimal assist. Pt is alert and oriented. Seems slightly forgetful. Per report pt is still groggy from anesthesia. Pt has new power port on left shoulder with dermabond. Pt is currently denying pain. Upgraded to full liquid diet for this evening. Scheduled for liver biopsy in the morning and so NPO at midnight per MD endoscopy note.
--- NOTE | 2017-01-25 18:58 | ENDO ---
[address] [address] ENDOSCOPY PROCEDURE PATIENT: JAIDEN RODAS : 1950 MR#: [id number] ADMIT: 01/22/2017 JOB ID: [id number] DATE: 01/25/2017 PROCEDURE: Esophagogastroscopy with biopsy. INDICATIONS: A 66-year-old male found to have a stage 4 process with an ulcerated mass effect at the level of the GE junction. Repeat exam today is pursued to obtain tissue. He has been given an extra unit of FFP earlier today and 2 units of platelets in light of the aspirin and Plavix that were last administered Monday (today is Monday). EQUIPMENT: GIF H 180 J. SEDATION: Monitored anesthesia as provided by Dr. Jules Land. COMPLICATIONS: None identified. PROCEDURE INFORMATION: After the risks and benefits were explained, written and verbal informed consent was obtained. The patient was brought into the endoscopy suite and placed into the left lateral decubitus position. Sedation was achieved as above. The scope was introduced into the mouth through the bite block and advanced to the distal esophagus. Biopsies were acquired. The scope was advanced across the GE junction, into the stomach. Retroflexed views were accomplished. The stomach was decompressed and the scope then removed from the patient, who tolerated the procedure well. FINDINGS: 1. Duodenum: Not interrogated. 2. Stomach: Retroflexed view of the LES was rather unremarkable. The mass lesion could not really be seen in retroflexed position. There was no evidence of any new or old blood in the stomach. There was a bile-stained clear gastric fluid. 3. Esophagus: The GE junction excavated mass lesion could again be seen. This seemed to be occupying approximately 1/3 of the luminal circumference. I was easily able to navigate past this with the endoscope into stomach. This time around there was no evidence of any ongoing oozing or spontaneous bleeding. I took three biopsies from the heaped up margin proximally. There were no substantial hemorrhagic complications. The remainder of the esophagus was unremarkable. ENDOSCOPIC DIAGNOSES: Ulcerated gastroesophageal junction lesion-biopsied. RECOMMENDATIONS: 1. Await histopathology. We specifically requested exclusion of renal cell markers in light of the CT report. 2. The patient can be resumed on a full liquid diet this evening. 3. I understand he is scheduled for a liver biopsy tomorrow to correlate with what we have obtained from today's examination. He should therefore be n.p.o. after midnight. A full set of labs is pending for the morning. 4. Please note that the patient was transferred from the endoscopy unit as I dictate this over to the operating room, were Dr. Hensley he has standing by for port placement.
--- NOTE | 2017-01-25 19:08 | DRSVH ---
PROCEDURE: X-RAY CHEST ONE VIEW, PORTABLE ([id number]) INDICATIONS: PORT PLACEMENT TECHNIQUE: One view of the chest was acquired. COMPARISON: [facility], CR, XR CHEST 1VW (PORTABLE), 09/02/2016, 10:35. FINDINGS: Surgical changes and devices: Sternotomy and CABG. The superior sternal wire is fractured. Surgical clips in the right apex. Lungs and pleura: No pleural effusions or pneumothorax. Lungs are clear. Mediastinum: Mediastinal contours appear normal. Heart size is normal. Bones and chest wall: No suspicious bony lesions. Overlying soft tissues appear unremarkable. IMPRESSION: The left Port-A-Cath tip is in the area of atriocaval junction. No pneumothorax. Dictated by: Roddy Squires M.D. on 01/25/2017 at 19:05 Approved by: Roddy Squires M.D. on 01/25/2017 at 19:07
--- NOTE | 2017-01-25 21:41 | NUR ---
BLOOD SUGARS Pt's BS 186, gave 1 units of insulin, Pt denied pain, portacath site showed no signs of redness or swelling. Pt denied N/V, tolerating full liquids fine, NPO after midnight. No other issues noted at this time. Addendum: 01/26/17 at 0533 by TERE KAISER RN 3 am BS 122
[2017-01-25] MEDS: oxyCODONE-Acetamin 5-325 mg Tablet PO PRN (22:17)
[2017-01-26] VITALS (18 sets, daily range): BP systolic 119–171; BP diastolic 49–70; PULSE 75–124; RESP 16–24; O2SAT 93–99
[2017-01-26] MEDS: Insulin REGULAR SS Low-Dose SUBQ SCH ×4 (02:30→20:30)
[2017-01-26] MEDS: 0.9% Sodium Chloride 250 ML IV SCH (02:32)
[2017-01-26 02:59] LABS: BASOPHILS % (AUTO) 0.4 % (0-3); EOSINOPHILS % (AUTO) 1.8 % (0-5); MONOCYTES % (AUTO) 11.1 % (4-12); Mean Corpuscular Hemoglobin 29.7 pg (27.0-35.0); Mean Corpuscular Volume 91.8 fL (81-100); NEUTROPHILS % (AUTO) 79.8 % (40-74); Platelet Count 337 bil/L (150-400)
[2017-01-26] MEDS: Pantoprazole Inj 80 MG in 0.9% Sodium Chloride 80 ML IV SCH ×3 (03:04→21:07)
[2017-01-26 03:13] LABS: INR 1.4 ratio
[2017-01-26 04:01] LABS: Magnesium 1.6 mg/dL (1.6-2.6); Phosphorus 2.8 mg/dL (2.5-4.9)
--- NOTE | 2017-01-26 07:34 | PCM.PNSURG ---
Subjective Visit Information: Reason for Visit Upper Gi Bleed Surgery/Surgery Date Post-Op Day # Date of Admission: Jan 22, 2017 at 20:29 Hospital Day # Subjective: Stable after port placement. CXR shows port in good position, no PTX. Objective Vital Sign- Last 8 Hours Date Time Temp Pulse Resp B/P Pulse Ox O2 Delivery O2 Flow Rate FiO2 01/26/17 05:25 121 01/26/17 02:55 37.1 121 18 124/65 93 Room Air Intake and Output- Last 8 Hour 01/26/17 Cumulative From/Thru 07:00 01/22/17 15:37 - 01/26/17 05:08 Intake Total 110 ml 51505 ml Output Total 300 ml 6880 ml Balance -190 ml 3858 ml Intake Oral 0 ml 2780 ml IV Total 110 ml 6000 ml Packed Cells 700 ml FFP 1008 ml Platelets 250 ml Output Urine Total 300 ml 6870 ml Estimated Blood Loss 10 ml # Voids 7 # Bowel Movements 0 1 General: Alert, Oriented X3, Cooperative, No Acute Distress Chest: port in L upper chest Result Diagram: 01/26/17 0240 01/26/17 0240 Assessment & Plan Impression 66yom POD1 port placement Problems: Plan No concerns. Surgery to sign off. VTE Prophylaxis: SCDs, Other (withholding anticoagulation due to active GI bleed) Resuscitation Status: DNR/DNI:Do Not Resuscitate/Intubate Racquel Hensley MD Jan 26, 2017 07:34
--- NOTE | 2017-01-26 09:16 | PCM.PALLBR ---
Palliative Brief Note Date of Service Jan 26, [address] Mcqueen updated Dr. Reddy (R1 of [facility] Team) on POLST decisions made by Mr. Adame 01/25/17. As the patient's goals are clear, Palliative Care Team will sign off the case today. Thank you for this consult. (no billing) Osiris Mcqueen MD Jan 26, 2017 09:16
[2017-01-26] MEDS ORDERED: fentaNYL-PF 50 mCg/mL 2 mL Inj IVPUSH ONE (09:31)
[2017-01-26] MEDS ORDERED: 0.9% Sodium Chloride 500 ML IV ONE (09:35)
--- NOTE | 2017-01-26 11:07 | PCM.PNMED ---
Subjective Date of Service Jan 26, 2017 Subjective The patient remains remarkably calm and peaceful given his diagnosis, he will likely undergo liver biopsy today to characterize his neoplastic process. He has no specific complaints and has been exceptionally pleasant to staff and providers. His esophageal pain and burning remain unchanged. No significant overnight events Comprehensive ROS negative except as listed above. Exam Vital Signs Vital Sign - Last Date Time Temp Pulse Resp B/P Pulse Ox O2 Delivery O2 Flow Rate FiO2 01/26/17 09:53 124 24 139/66 95 Room Air 01/26/17 08:35 36.9 01/25/17 17:40 8 Intake and Output 01/25/17 01/25/17 01/26/17 Cumulative From/Thru 15:00 23:00 07:00 01/22/17 15:37 - 01/26/17 05:08 Intake Total 550 ml 1670 ml 110 ml 30446 ml Output Total 1160 ml 300 ml 6880 ml Balance 550 ml 510 ml -190 ml 3858 ml Intake Oral 320 ml 0 ml 2780 ml IV Total 300 ml 1100 ml 110 ml 6000 ml Packed Cells 700 ml FFP 250 ml 1008 ml Platelets 250 ml 250 ml Output Urine Total 1150 ml 300 ml 6870 ml Estimated Blood Loss 10 ml 10 ml # Voids 7 # Bowel Movements 0 1 Exam Gen: A/O x3 pleasant cooperative gentleman in NAD Neck: supple, no thyromegaly, no JVD HEENT: PERRL, EOMI, no scleral icterus, no conjunctival pallor CV: RRR, no murmurs rubs or gallops Resp: Lungs CTA BL, no wheezing rales or rhonchi Abd: Soft, mild tenderness to palpation in RUQ, BS +4Q, no rebound or guarding Extr: No clubbing, cyanosis, or edema Neuro: CN 2-12, no focal neurologic deficit Psych: Patient with pleasant and appropriate mood and affect. IVs and Medications Medications Reviewed: Medications were reviewed in detail Lab and Diagnostics 100 ml NS delivered with IV medications Result Diagram: 01/26/17 0240 01/26/17 0240 X-Rays, CTs and MRIs X-RAY CHEST, TWO VIEWS IMPRESSION: 1. No acute cardiopulmonary disease. Dictated by: Trevor Perez M.D. on 01/22/2017 at 18:25 CT CHEST, ABDOMEN AND PELVIS [facility] CONTRAST IMPRESSION: 1. Primary distal esophageal neoplasm, with severe hepatic metastatic disease, as well as a right renal metastasis. 2. Coronary artery disease. 3. Gastrohepatic ligament prieto metastasis. Possible subcarinal prieto metastasis. 4. Findings discussed with Dr. Sheriff on 01.24.17 at 1152 hrs. Dictated by: Bimal Valdez M.D. on 01/24/2017 at 11:51 Approved by: Bimal Valdez M.D. on 01/24/2017 at 11:56 . Assessment & Plan Patient is a 66-year-old male with past medical history remarkable for coronary artery disease post-CABG and 21 stents, GI bleed secondary what was determined to be Ronda-Layne tear on EGD in August 2016 presents to [facility] from urgent care due to fatigue and anorexia. Patient underwent upper endoscopy which revealed friable bleeding mass in the distal esophagus suspicious for malignancy. Follow up CT scan to characterize his potential neoplastic burden revealed a large distal esophageal mass, with further likely neoplastic process in the liver and kidney. The patient will undergo attempted liver biopsy, and repeat upper endoscopy. Extensive as yet unidentified neoplastic process, POA, acute. Active - possibly secondary to history of Non Hodgkin lymphoma and prior radiation and chemo - Patient with very discouraging CT results as above - Neoplasm in the esophagus, liver, and kidney - As yet uncertain which mass represents the primary versus metastatic disease - plan to repeat EGD on 01/27/17, after 5 days off plavix, for likely tissue biopsy - Dr. aKtz from oncology and Dr. Sheriff from GI have been consulted and we appreciate their expertise - Will attempt to biopsy the liver and esophagus in an attempt to characterize his process Acute blood loose Anemia, POA, acute. Active - secondary to friable ulcerated mass as above - Patient given 2U PRBC on day of admit - Patient given 2U FFP to reverse INR to goal around 1.5 - Will continue to transfuse as necessary to keep Hg around 10 - Possible repeat exploratory upper endoscopy to evaluation for resolution of acute bleed - Once resolution has been established will convert to heparin drip until biopsy date Unintentional weight loss, POA, acute on chronic. Active - Patient describes a 15-20 pound weight loss since October with notable abdominal discomfort after eating, solids >liquids - secondary to neoplastic process as above - Clear liquids while awaiting identification of esophageal mass Coronary artery disease, POA, chronic. Active - History of 21 stents placed, greater than 1 year ago, prior CABG - Hold aspirin and Plavix for possible due to GI bleed - Will place patient on Heparin drip as soon as resolution of acute bleed can be identified - Spoke with patient's Trainer Dr. Valdez based in [place], he agrees with the above plan, this is the provider who performed many of the patient's extensive cardiac surgeries Aortic stenosis, s/p mechanical aortic valve replacement in 2001 on chronic anticoagulation, POA, chronic. Active - Hold warfarin as above - Will place on Heparin drip when possible as above Paroxysmal atrial fibrillation, POA, chronic. Active - Patient is on chronic warfarin therapy - Holding Warfarin due to active GI bleed - Patient with rates in 110-120 range, sinus tachycardia - Conversion to Afib Aflutter 01/25/17 - Will initiate beta blockage to attempt to control rate Chronic kidney disease likely stage IIIB, POA, chronic. Active - Creatinine currently at 1.9 likely baseline is around 1.7. Patient received 1 L normal saline IV in the ED - Avoid nephrotoxic insults when possible - Ok to continue outpatient Losartan when patient develops HTN will hold as normotensive currently Hypothyroid, Continue levothyroxine 88 g daily Diabetes mellitus type II. Hold glimepiride given nothing by mouth for possible GI procedure, Low correction scale lispro Essential tremor - History of gamma knife ablation - Okay to continue propranolol if symptomatic Hyperlipidemia. - Holding cholesterol medication Hypertension. - holding antihypertensive medications as patient is normotensive with concern about acute bleed - restart when proven hemodynamically stable Disposition: Patient will remain inpatient at least until 01/27/17 to facilitate expeditious EGD with biopsy of esophageal mass following 5 days off plavix, likely DC home 01/28/17 depending upon clinical recovery from that procedure. Pain Evaluation: Adequate Pain Control GI Prophylaxis: Proton Pump Inhibitor VTE Prophylaxis: SCDs, Other (withholding anticoagulation due to active GI bleed) VTE Mechanical Devices: Intermittant Pneumatic CD Resuscitation Status: DNR/DNI:Do Not Resuscitate/Intubate Attending Statement The patient was seen and examined together with Dr. Reddy on 01/26/2017 and I agree with the history, exam and plan as outlined in the note above. . Natanael Reddy DO Jan 26, 2017 11:07 Stewart Preciado MD Jan 27, 2017 07:04
--- NOTE | 2017-01-26 11:28 | DRSVH ---
PROCEDURE: US-GUIDED LIVER BIOPSY ([id number]) Ultrasound-guided liver biopsy with sedation analgesia for 15 minutes. INDICATIONS: Stage IV process of unknown primary TECHNIQUE: The indications, alternatives, benefits, risks, and complications of the procedure were e xplained to the patient. Written informed consent was obtained and placed in the chart. Continuous EKG and hemodynamic monitoring was started by trained personnel. Real-time sonography was utilized to choose the site for percutaneous hepatic biopsy. The skin was p repped and draped in the usual sterile fashion. 1% lidocaine was infiltrated down to the hepatic cap scott. A coaxial needle was then advanced into the liver under direct sonographic visualization. A b iopsy apparatus was then utilized, and core biopsies were obtained. The needle was then withdrawn; a bandage and overlying weight were applied to the biopsy site. The attending physician was present, and personally performed the procedure. COMPARISON: [facility], CT, CT CHEST ABD PELVIS W CON, 01/24/2017, 10:29. [facility], US, US ABDOMEN, 01/23/2017, 7:59. FINDINGS: Biopsy site(s): Mid right hepatic lobe mass. Needle: TeensSuccess biopsy needle set. Number of passes: 3 Medications: 1% lidocaine for local anaesthesia. IV Versed and Fentanyl for conscious sedation for 15 minutes (see nursing record). Complications: None. IMPRESSION: Successful ultrasound-guided liver biopsy, with pathology results pending. Dictated by: Abelardo SCHREIBER Interpreted: Chao Parkinson MD on 01/26/2017 at 11:27 Transcribed by: KHALIF on 01/26/2017 at 11:28 Approved by: Chao Parkinson M.D. on 01/26/2017 at 17:33
--- NOTE | 2017-01-26 13:31 | NUR ---
leanna/liver biopsy Pt had stable recovery post liver biopsy, pt VSS and WNL on RA, pt denies pain or discomfort, orthostatics normal, puncture site soft non tender, Primary RN given report, she was told to keep an eye on 1400 hct draw and to notify MD if it drops more than 3 points.
--- NOTE | 2017-01-26 13:45 | NUR ---
Pt back to PCC/Cardiac Pt back after Biopsy. Report received from Roxie CASTORENA in [facility]. Pt transported in bed. He is alert and oriented, denies pain. Tele reports that pt converted from Aflutter to SR at approximately 1330. HR currently in the 80s. Addendum: 01/26/17 at 1558 by DILIP OSCAR RN Pt HCT 28.6, previous HCT 28.1
[2017-01-26] MEDS ORDERED: Warfarin 5 MG, Warfarin 2.5 MG PO ONE ×2 (17:00)
--- NOTE | 2017-01-26 18:50 | PROG NOTE ---
[address] [address] PROGRESS NOTE PATIENT: JAIDEN RODAS : 1950 MR#: [id number] ADMIT: 01/22/2017 JOB ID: [id number] DATE: 01/26/2017 SUBJECTIVE: The patient is doing well. He seems to have made through liver biopsy without any perceived complications. He is enjoying a smoothie consistency diet. OBJECTIVE: Vital signs demonstrate pulse in the 80s, afebrile, blood pressure 150/66, 97% on room air. He is conversational, in no distress. Two of his daughters were present in the room for my encounter. LABORATORY: H and H are stable. White count was 10.2 this morning. INR was 1.4. Creatinine 1.42. Liver tests were normal. CEA was 8.7. ASSESSMENT AND RECOMMENDATIONS: A 66-year-old male with a stage 4 malignancy. The primary is yet to be determined. The GE junction biopsies have been acquired and hopefully we may have some information on that tomorrow afternoon. Liver biopsy today I would imagine will perhaps be back as early as Monday or Monday. I think it would be safe to resume anticoagulation tomorrow. The patient has a preference for Lovenox if this means he could go home while he gets his INR back up to a therapeutic level on Coumadin. As far as aspirin and Plavix are concerned, it is difficult to predict what will happen with resumption of one or both of these medications, but I certainly understand the risk if they are left out of the equation for now. I think it would be reasonable from a GI standpoint to restart them tomorrow as well and simply monitor the patient for any recurrence of bleeding symptoms. I took the liberty of advancing him to a dysphagia style diet this afternoon.
[2017-01-26] MEDS: oxyCODONE-Acetamin 5-325 mg Tablet PO PRN (20:27)
[2017-01-27] VITALS (10 sets, daily range): BP systolic 98–161; BP diastolic 51–67; PULSE 74–94; RESP 16–18; O2SAT 93–98
[2017-01-27] MEDS: Insulin REGULAR SS Low-Dose SUBQ SCH ×5 (02:30→20:26)
[2017-01-27 03:05] LABS: BASOPHILS % (AUTO) 0.5 % (0-3); EOSINOPHILS % (AUTO) 2.1 % (0-5); MONOCYTES % (AUTO) 10.1 % (4-12); Mean Corpuscular Hemoglobin 29.3 pg (27.0-35.0); Mean Corpuscular Volume 93.2 fL (81-100); NEUTROPHILS % (AUTO) 74.4 % (40-74); Platelet Count 293 bil/L (150-400)
[2017-01-27 03:21] LABS: INR 1.43 ratio
[2017-01-27] MEDS: 0.9% Sodium Chloride 250 ML IV SCH (03:41)
[2017-01-27 04:20] LABS: Magnesium 1.7 mg/dL (1.6-2.6); Phosphorus 3.1 mg/dL (2.5-4.9)
[2017-01-27] MEDS ORDERED: 0.9% Sodium Chloride 250 ML IV PRN (04:25)
--- NOTE | 2017-01-27 04:40 | NUR ---
H/H Am labs H/H noted to be 7.8/24.8. Vitals stable overnight. Pt denies any abdominal pain. Pt states he had one, very small black stool on day shift. Findings relayed to Dr. Cabrales. Pt re-typed and crossed (previous one done on 01/24 had ) and H/H redrawn. Repeat H/H 7.9/25.2, Pt scheduled to have dose of Lovenox @ 0500. Discussed plan of care with Dr. Cabrales. MD states to Hold Lovenox and Coumadin today and to transfuse 1 unit of PRBC. Blood bank aware- will inform RN when blood is ready.
[2017-01-27] MEDS: Pantoprazole Inj 80 MG in 0.9% Sodium Chloride 80 ML IV SCH (07:01)
--- NOTE | 2017-01-27 10:58 | NUR ---
NUTRITION FOLLOW-UP: ASSESS: 66YO M admit with black tarry stools, fatigue, reported 15-20lb weight loss x 3mos with discomfort after eating (9%wt loss x 3 months=severe). Pt had a CT scan that indicated extensive metastatic disease with neoplastic process in the distal esophagus, liver, and kidney. Pt is DNR/DNI and does not want to have tube feeding. Pt is willing to try palliative chemotherapy. Pt reports that he is able to swallow liquids with no trouble but solids like bread and rice can take extra effort. He reported that his appetite is good right now but it not back to his baseline before all this started. He is on a dysphagia mechanical diet with good PO at 50-100% of meals. PMHX: CAD s/p CABG,stents; GI bleed, hypothyroid,DM Type II,Essential Tremor, HTN DIET: dysphagia mechanical, PO 50-100% LABS: Reviewed. Junior Designer 1.52, Glu 112, Alb 3.4 MEDS: Reviewed. Insulin SKIN: no issues noted GI: BMx1 01/24 WEIGHT: 92.5kg, BMI: 26.2kg/m2, IBW: 86kg. UBW reported: 100.3kg; 20lb wt. loss x 3mos, 9% wt loss= Severe EST.NEEDS: WT GAIN, CA Kcal: 2660-3100kcal/day (30-35kcal/kg) Pro: 105-130g/day (1.2-1.5g/kg) NUTRITION DIAGNOSIS: (1) Severe malnutrition related to decreased appetite, abdominal discomfort with eating reported prior to admit as evidenced by reported 9% weight loss x 3mos, reported PO intake less than 75% of estimated needs and new diagnosis of esophageal ca with mets.--IMPROVING INTERVENTION: (1) Continue current (2) Spoke with pt about ways to make sure he gets enough kcal/pro while eating mainly a liquid diet. Discussed smaller, more frequent meals and high kcal/pro food options. Pt tries to eat organic so suggested checking out the [employer] in [place] for different high kcal/pro supplements that they have to offer. (3) Provided high kcal/pro nutrition handout and recipe book (4) Pt was agreeable to try [employer] Ensure on L tray MONITOR/EVALUATE: PO, wt, GI, labs, POC, nutrition status. Will continue to monitor per moderate nutrition risk guidelines
--- NOTE | 2017-01-27 14:04 | PROG NOTE ---
[address] [address] PROGRESS NOTE PATIENT: JAIDEN RODAS : 1950 MR#: [id number] ADMIT: 01/22/2017 JOB ID: [id number] DATE: 01/27/2017 SUBJECTIVE: The patient had a drop in his hemoglobin this morning. He has since been transfused up to hemoglobin of 9.2. He had some mild discomfort in and about the port site. Had also some mild discomfort about the liver biopsy site but that both of those are continuing to improve as time goes by. He has not had any significant volume of melena. He has tolerated his diet thus far. The team started him on Lovenox last night. DATE: OBJECTIVE: Blood pressure 146/67, pulse 78, breathing 18, temperature 36.9, 97% on room air. The patient was conversational, in no distress. Alert, oriented, appropriate, cooperative. His sheep herder and one of his daughters was present at the bedside. LABORATORIES: As above. PATHOLOGY: Still pending. ASSESSMENT AND RECOMMENDATIONS: A 66-year-old male with a stage IV malignancy. Pathology is still pending. In light of all of the instrumentation and procedures that have occurred over the preceding 48 hours, I would recommend continued observation through at least today to ensure he is tolerant of re-initiation of anticoagulation prior to discharge home. I will be discussing the case with Dr. Frost who will be covering the GI service through the weekend.
--- NOTE | 2017-01-27 16:30 | PCM.PNMED ---
Subjective Date of Service Jan 27, 2017 Subjective Patient remains pleasant and cooperative with care. He is concerned about the timing of his discharge and anticoagulation, rationale for withholding full anticoagulation explained and patient expressed understanding and agreement with current course of action. Continued mild epigastric burning exacerbated with oral intake. No significant overnight events Comprehensive ROS negative except as outlined above. Exam Vital Signs Vital Sign - Last Date Time Temp Pulse Resp B/P Pulse Ox O2 Delivery O2 Flow Rate FiO2 01/27/17 12:21 36.9 78 18 146/67 97 Room Air 01/25/17 17:40 8 Intake and Output 01/26/17 01/26/17 01/27/17 Cumulative From/Thru 15:00 23:00 07:00 01/22/17 15:37 - 01/27/17 06:01 Intake Total 1237 ml 710 ml 95256 ml Output Total 475 ml 200 ml 7555 ml Balance 762 ml 510 ml 5130 ml Intake Oral 1185 ml 600 ml 4565 ml IV Total 52 ml 110 ml 6162 ml Packed Cells 700 ml FFP 1008 ml Platelets 250 ml Output Urine Total 475 ml 200 ml 7545 ml Estimated Blood Loss 10 ml # Voids 2 9 # Bowel Movements 0 1 Exam Gen: A/O x3 pleasant cooperative gentleman in NAD Neck: supple, no thyromegaly, no JVD HEENT: PERRL, EOMI, no scleral icterus, no conjunctival pallor CV: RRR, systolic blowing murmur, audible click from prosthetic valve, no rubs or gallops Resp: Lungs CTA BL, no wheezing rales or rhonchi Abd: Soft, mild tenderness to palpation in RUQ, BS +4Q, no rebound or guarding Extr: No clubbing, cyanosis, or edema Neuro: CN 2-12, no focal neurologic deficit Psych: Patient with pleasant and appropriate mood and affect. IVs and Medications IV Fluids 100 ml NS delivered with IV meds Medications Reviewed: Medications were reviewed in detail Lab and Diagnostics Item Value Date Time Red Blood Count 2.66 mil/mm3 L 01/27/17 0245 Mean Corpuscular Volume 93.2 fL 01/27/17 0245 Mean Corpuscular Hemoglobin 29.3 pg 01/27/17 0245 Mean Corpuscular Hemoglobin Concent 31.5 % L 01/27/17 0245 Red Cell Distribution Width 14.7 % 01/27/17 024 Neutrophils (%) (Auto) 74.4 % H 01/27/17 024 Lymphocytes (%) (Auto) 12.8 % L 01/27/17 024 Monocytes (%) (Auto) 10.1 % 01/27/17 024 Eosinophils (%) (Auto) 2.1 % 01/27/17 024 Basophils (%) (Auto) 0.5 % 01/27/17 024 Estimat Glomerular Filtration Rate 49 mL/min 01/27/17 024 Calcium Level 8.5 mg/dL 01/27/17 024 Phosphorus Level 3.1 mg/dL 01/27/17 024 Magnesium Level 1.7 mg/dL 01/27/17 024 Total Bilirubin 0.7 mg/dL 01/27/17 024 Aspartate Amino Transf (AST/SGOT) 37 U/L 01/27/17 024 Alanine Aminotransferase (ALT/SGPT) 30 U/L 01/27/17 024 Alkaline Phosphatase 157 U/L 01/27/17 024 Total Protein 5.8 g/dL L 01/27/17 024 Albumin 3.4 g/dL 01/27/17244 Prothrombin Time 15.4 sec H 01/27/17 024 Prothromb Time International Ratio 1.43 ratio 01/27/17 024 Result Diagram: 01/27/17 1145 01/27/17 024 X-Rays, CTs and MRIs X-RAY CHEST, TWO VIEWS IMPRESSION: 1. No acute cardiopulmonary disease. Dictated by: Trevor Perez M.D. on 01/22/2017 at 18:25 CT CHEST, ABDOMEN AND PELVIS [facility] CONTRAST IMPRESSION: 1. Primary distal esophageal neoplasm, with severe hepatic metastatic disease, as well as a right renal metastasis. 2. Coronary artery disease. 3. Gastrohepatic ligament prieto metastasis. Possible subcarinal prieto metastasis. 4. Findings discussed with Dr. Sheriff on 01.24.17 at 1152 hrs. Dictated by: Bimal Valdez M.D. on 01/24/2017 at 11:51 Approved by: Bimal Valdez M.D. on 01/24/2017 at 11:56 . Assessment & Plan Patient is a 66-year-old male with past medical history remarkable for coronary artery disease post-CABG and 21 stents, GI bleed secondary what was determined to be Ronda-Layne tear on EGD in August 2016 presents to [facility] from urgent care due to fatigue and anorexia. Patient underwent upper endoscopy which revealed friable bleeding mass in the distal esophagus suspicious for malignancy. Follow up CT scan to characterize his potential neoplastic burden revealed a large distal esophageal mass, with further likely neoplastic process in the liver and kidney. Extensive as yet unidentified neoplastic process, POA, acute. Active - possibly secondary to history of Non Hodgkin lymphoma and prior radiation and chemo - Patient with very discouraging CT results as above - Neoplasm in the esophagus, liver, and kidney - As yet uncertain which mass represents the primary versus metastatic disease - Liver and esophageal biopsy performed, path pending - Dr. Katz from oncology and Dr. Sheriff from GI have been consulted and we appreciate their expertise Acute blood loose Anemia, POA, acute. Active - secondary to friable ulcerated mass as above - Patient given 2U PRBC on day of admit - Patient given 2U FFP to reverse INR to goal around 1.5 - Will continue to transfuse as necessary to keep Hg around 10 - Possible repeat exploratory upper endoscopy to evaluation for resolution of acute bleed - Once resolution has been established will convert to heparin drip until biopsy date - Withholding initiation of Lovenox bridge due to H/H drop, initiating Warfarin to titrate up due to mechanical valve Unintentional weight loss, POA, acute on chronic. Active - Patient describes a 15-20 pound weight loss since October with notable abdominal discomfort after eating, solids >liquids - secondary to neoplastic process as above - Clear liquids while awaiting identification of esophageal mass Coronary artery disease, POA, chronic. Active - History of 21 stents placed, greater than 1 year ago, prior CABG - Hold aspirin and Plavix for possible due to GI bleed - As above will restart Warfarin to titrate up to therapeutic due to Mechanical valve, holding Lovenox due to drop in H/H - Spoke with patient's [facility] Dr. Valdez based in [place], he agrees with the above plan, this is the provider who performed many of the patient's extensive cardiac surgeries Aortic stenosis, s/p mechanical aortic valve replacement in 2001 on chronic anticoagulation, POA, chronic. Active - Warfarin as above Paroxysmal atrial fibrillation, POA, chronic. Active - Patient is on chronic warfarin therapy - Patient with rates in 110-120 range, sinus tachycardia - Conversion to Afib Aflutter 01/25/17 - Will initiate beta blockage to attempt to control rate Chronic kidney disease likely stage IIIB, POA, chronic. Active - Creatinine currently at 1.9 likely baseline is around 1.7. Patient received 1 L normal saline IV in the ED - Avoid nephrotoxic insults when possible - Ok to continue outpatient Losartan when patient develops HTN will hold as normotensive currently Hypothyroid, Continue levothyroxine 88 g daily Diabetes mellitus type II. - Lispro sliding scale, holding Glimepiride due to reduced PO intake and risk of hypoglycemia Essential tremor - History of gamma knife ablation - Okay to continue propranolol if symptomatic Hyperlipidemia. - Holding cholesterol medication Hypertension. - holding antihypertensive medications as patient is normotensive with concern about acute bleed - restart when proven hemodynamically stable Disposition: Anticipate DC in the next 1-2 days once H/H stabilizes and Lovenox bridging can be initiated. Pain Evaluation: Adequate Pain Control GI Prophylaxis: Proton Pump Inhibitor VTE Prophylaxis: SCDs, Other (titrating up Warfarin, holding lovenox due to H/ H drop ) VTE Mechanical Devices: Intermittant Pneumatic CD Resuscitation Status: DNR/DNI:Do Not Resuscitate/Intubate Attending Statement The patient was seen and examined together with Dr. Reddy on 01/27/17 and I agree with the history, exam and plan as outlined in the note above. Natanael Reddy DO Jan 27, 2017 16:30 Marixa Brown DO Jan 28, 2017 08:07
[2017-01-27] MEDS: Pantoprazole 40 mg ER24 Tablet PO SCH (16:41)
--- NOTE | 2017-01-27 16:52 | NUR ---
H&H Pt completed 1unit PRBC transfusion this morning, H&H improved, continuing to trend. No overt s/sx of bleeding present. VSS, NSR 70s-80s today. Pt denies dizziness/lightheadedness, ambulates independently in room, gait steady. L upper chest incision JULIUS c/d/i. Protonix gtt d/c'd at 1630, per orders, started on PO pantoprazole. Family at bedside.
[2017-01-27] MEDS: oxyCODONE-Acetamin 5-325 mg Tablet PO PRN (21:36)
[2017-01-28] VITALS (7 sets, daily range): BP systolic 148–159; BP diastolic 64–70; PULSE 76–86; RESP 16–18; O2SAT 93–97
[2017-01-28] MEDS: 0.9% Sodium Chloride 250 ML IV SCH (00:36)
[2017-01-28 03:18] LABS: BASOPHILS % (AUTO) 0.3 % (0-3); MONOCYTES % (AUTO) 10.6 % (4-12); Mean Corpuscular Hemoglobin 29.7 pg (27.0-35.0); NEUTROPHILS % (AUTO) 76.9 % (40-74); Platelet Count 308 bil/L (150-400)
--- NOTE | 2017-01-28 03:44 | NUR ---
H&H/WARFARIN Pt's H&H 8.9/27.6, INR 1.52, Lovenox held yesterday, Warfarin 7.5 mg given. Pt is A&O, Marni WEI in room, SR 80's, RA. No other issues noted at this time.
[2017-01-28 03:45] LABS: INR 1.52 ratio
[2017-01-28 03:59] LABS: Magnesium 1.7 mg/dL (1.6-2.6); Phosphorus 3.1 mg/dL (2.5-4.9)
[2017-01-28] MEDS: Insulin REGULAR SS Low-Dose SUBQ SCH ×2 (07:30→12:17)
[2017-01-28] MEDS: Pantoprazole 40 mg ER24 Tablet PO SCH (08:14)
--- NOTE | 2017-01-28 08:49 | PCM.PHAPRO ---
Progress Anorexia and fatigue Date Jan 27Jan 28 INR 1.40 1.43 1.52 INR change 0.03 0.09 Warf Dose 7.5 7.5MG 7.5 Currently holding lovenox due to H/H Pharmacy will continue to follow Kait Herron PharmD Jan 28, 2017 08:49
[2017-01-28] MEDS ORDERED: Warfarin 5 MG, Warfarin 2.5 MG PO ONE ×6 (12:16→17:00)
--- NOTE | 2017-01-28 12:38 | PCM.DIMED ---
Natanael Redyd DO 01/28/17 1238: Discharge Instructions Date of Service Jan 28, 2017 Dates of Hospitalization Jan 22, 2017 at 20:29 Discharge Diagnosis Discharge Diagnosis Extensive as yet unidentified neoplastic process, POA, acute. Active: We are still awaiting the results of the biopsies taken earlier this week. I would expect to hear to back early next week. We will attempt to schedule appointments with both Dr. Katz and Dr. Sheriff in the next 2 weeks in order to further discuss your options moving forward. Acute blood loose Anemia, POA, acute. Active: Given how recently you were losing blood I don't think we should send you out on Lovenox as I'm concerned it would precipitate further bleeding which you may not be aware of until it becomes severe. We will give you 7.5 of Warfarin today, and you should plan for the same dose tomorrow, and then follow up with the INR clinic. My thinking here is that we would slowly bring up your INR over the next few days, which would give your body the chance to resolve any lingering bleeding issues before your blood becomes too thin from the Warfarin. I would recommend a very low threshold for coming in for further evaluation, if you have any blood in your stool or feel as you did before when you were anemic please return back to the hospital to be evaluated. Unintentional weight loss, POA, acute on chronic. Active: You should cautiously advance your diet over the next few days starting Monday. I would stick to foods that are easy to process and swallow by also nutritionally dense such as full fat yogurt, nutrition shakes, and smoothies. Dr. Sheriff can provide you with further dietary advice once the results of your biopsy are known. Coronary artery disease, POA, chronic. Active: As above your heart history is very concerning to me in the face of our imperative to avoid bleeding in the short term. It would not be unwise at all to seek further advice from Dr. Valdez who performed your surgeries and best knows your cardiovascular risk. I have already spoken to him over the phone, and he remembered you well and conferred his well wishes. I would hold off taking your Aspirin and Plavix until you can be seen by Dr. Katz. Aortic stenosis, s/p mechanical aortic valve replacement in 2001 on chronic anticoagulation, POA, chronic. Active: As above we will proceed with very cautious anticoagulation with the hope of bringing you up to a therapeutic range within the next few days. Paroxysmal atrial fibrillation, POA, chronic. Active: You should be able to return to your prior dose of propranolol which will confer control of both your heart rate and tremor. If you are aware that you are in Afib more often then I would seek further evaluation to see if an alternative Beta Cindi with a little more cardiac activity than propranolol would be of benefit for you. Chronic kidney disease likely stage IIIB, POA, chronic. Active: Your kidney numbers have been fairly stable during the course of your stay here. Hypothyroid, Continue levothyroxine 88 g daily Diabetes mellitus type II.: I would continue to hold off on taking your Glimepiride until you can be evaluated by your primary care doctor. You will likely be eating much less compared to your usual habits for the foreseeable future, and Glimepiride has a high risk of low blood sugar in this kind of setting. Essential tremor: You can resume your beta cindi when you return home Hyperlipidemia.: Please resume your usual Statin upon returning home Hypertension: I would resume taking your usual blood pressure medications when you return home. If you have a home blood pressure monitor I would watch your pressure closely and hold your blood pressure medications if your pressure is less than 110/70 Medication Instructions Additional med instructions Please take 7.5 mg of Warfarin tomorrow, and then follow up with the INR clinic on Monday. Diet Discharge Diet: Other (Mostly liquid soft diet as tolerated until you can be seen by Dr. Sheriff. Soft protein rich foods such as eggs should not be a problem.) Activity Discharge Activity: Limited until seen by PCP (Do not engage in any activities that will cause you to strain yourself, I will send you home with a stool softener so you don't have to strain on the toilet.) Call your provider Call your provider for: Fever or Chills, Shortness of breath, Bleeding, Chest pain, Vomitting, Excessive diarrhea, Weakness (unilateral) Patient Instructions Follow-up plan Please follow up with Dr. Katz as soon as possible following return of the results of your biopsies. You should follow up with Dr. Sheriff after your appointment with Dr. Katz. A further follow up appointment with the [facility] residency clinic would be helpful to help coordinate your various specialties. Follow-up Provider: Isabel Katz MD Follow-up with PCP in: 1 week Provider: Carroll Sheriff MD Follow-up in: 2 weeks Mid-level Provider (F9): [facility] Follow-up with Mid-level in: 2 weeks Marixa Brown DO 01/28/17 1429: Discharge Instructions Attending's Statement The patient was seen and examined together with Dr. Reddy on 01/28/17 and I agree with the history, exam and plan as outlined in the note above. Natanael Reddy DO Jan 28, 2017 12:38 Marixa Brown DO Jan 28, 2017 14:29
[2017-01-28] MEDS ORDERED: ATOR20TA PO (12:43)
[2017-01-28] MEDS ORDERED: SENN-133 PO (13:07)
[2017-01-28] MEDS ORDERED: POLY17PO6 PO (13:07)
--- NOTE | 2017-01-28 13:40 | PCM.DC.MED ---
Discharge Summary Date of Service Jan 28, 2017 Dates of Hospitalization Date of Hospital Admission Jan 22, 2017 at 20:29 Date of Discharge: Jan 28, 2017 Providers: Admitting Physician: Carolina Lombardo DO [facility] Attending Physician: Carolina Lombardo DO Diagnosis at Time of Discharge Diagnosis at Time of Discharge Extensive as yet unidentified neoplastic process, POA, acute. Active: Acute blood loose Anemia, POA, acute. Active: Unintentional weight loss, POA, acute on chronic. Active: Coronary artery disease, POA, chronic. Active: Aortic stenosis, s/p mechanical aortic valve replacement in 2001 on chronic anticoagulation, POA, chronic. Active: Paroxysmal atrial fibrillation, POA, chronic. Active: Chronic kidney disease likely stage IIIB, POA, chronic. Active: Hypothyroid, Diabetes mellitus type II.: Essential tremor: Hyperlipidemia.: Hypertension: Consultations Gastroenterology with Dr. Sheriff Hematology/Oncology with Dr. Katz Procedures XRay, CTs & MRIs X-RAY CHEST, TWO VIEWS IMPRESSION: 1. No acute cardiopulmonary disease. Dictated by: Trevor Perez M.D. on 01/22/2017 at 18:25 CT CHEST, ABDOMEN AND PELVIS [facility] CONTRAST IMPRESSION: 1. Primary distal esophageal neoplasm, with severe hepatic metastatic disease, as well as a right renal metastasis. 2. Coronary artery disease. 3. Gastrohepatic ligament prieto metastasis. Possible subcarinal prieto metastasis. 4. Findings discussed with Dr. Sheriff on 01.24.17 at 1152 hrs. Dictated by: Bimal Valdez M.D. on 01/24/2017 at 11:51 Approved by: Bimal Valdez M.D. on 01/24/2017 at 11:56 . Brief History Taken from History and Physical composed by Dr. Cabrales on 01/22/17 Patient is a 66-year-old male with past medical history remarkable for coronary artery disease post-CABG and 21 stents, GI bleed secondary Ronda-Layne tear on EGD in August 2015 presents to [facility] from urgent care due to fatigue and anorexia. The patient states that he was last seen by his waiter/waitress second class on January 20 and since that time he has developed worsening dark stools. The patient denies any blood-streaked stool or severe tarry stools, and denies any recent nausea or vomiting recently. The patient was seen in urgent care today and diagnosed with anemia with positive stool guaiac as well as an enlarged prostate. The patient states that he feels similar to that of being anemic in the past. The patient denies any chest pain on exertion stating that he was able to do 40 minutes on a treadmill for cardiac rehabilitation without issue. The patient was recently started on cetirizine for allergies. The patient states that he has been losing weight recently with a decrease in his appetite and worsening dyspepsia upon eating. The right loss is reported to be approximately 15-20 pounds since October. The patient denies any recent headaches, night sweats, unusual bruising or bleeding. He was admitted for upper GI bleeding, melenic stools, progressive anemia, with weakness and weight loss. . Hospital Course Patient is a 66-year-old male with past medical history remarkable for coronary artery disease post-CABG and 21 stents, GI bleed secondary what was determined to be Ronda-Layne tear on EGD in August 2016 presents to [facility] from urgent care due to fatigue and anorexia. Hospital Course: On workup, he underwent right upper quadrant ultrasound which demonstrated heterogeneous echotexture of liver, suggestive of infiltrative/ metastatic process. In the meantime, he developed melenic stools again, with drop in hematocrit. He underwent EGD by Dr. Sheriff, who found an ulcerated excavated mass at GE junction, measuring about 2 cm in size. Biopsy was not taken given that INR was 2.42 before procedure, and the patient had Plavix and aspirin on board, and the lesion was actively oozing. CT scan of the chest, abdomen, and pelvis with contrast was obtained, and unfortunately showed extensive metastatic disease. There is an exophytic intraluminal mass within the distal esophagus. There are numerous hepatic masses, consistent with severe hepatic metastatic disease. The largest measures 5 cm in size in medial segment of left hepatic lobe. There is also a 4.2 cm hypo-enhancing heterogeneous mass within the medial aspect of the right interpolar kidney posteriorly, most consistent with a primary renal cell carcinoma. There is a 1.2 cm gastrohepatic ligament lymph node. Biopsies of the liver and esophagus were obtained and are awaiting pathology. At this time the patient's H&H seems to be stable. Not continue Lovenox, change the patient to Coumadin for anticoagulation. The patient will be sent home with 7.5 mg of warfarin to be taken tomorrow and he will follow-up with the Coumadin clinic on Monday. The patient should follow up with GI (Dr. Sheriff), Dr. Katz (oncology), and Dr. Valdez (cardiology) for further options of treatment. The patient is being discharged home in stable condition. For full hospital course see below. Extensive as yet unidentified neoplastic process, POA, acute. Active - possibly secondary to history of Non Hodgkin lymphoma and prior radiation and chemo - Patient with very discouraging CT results as above - Neoplasm in the esophagus, liver, and kidney - As yet uncertain which mass represents the primary versus metastatic disease - Liver and esophageal biopsy performed, path pending - Dr. Katz from oncology and Dr. Sheriff from GI have been consulted and we appreciate their expertise Acute blood loose Anemia, POA, acute. Active - secondary to friable ulcerated mass as above - Patient given 2U PRBC on day of admit - Patient given 2U FFP to reverse INR to goal around 1.5 prior to biopsy procedure - Continued to transfuse as necessary to keep Hg around 10 Unintentional weight loss, POA, acute on chronic. Active - Patient describes a 15-20 pound weight loss since October with notable abdominal discomfort after eating, solids >liquids - secondary to neoplastic process as above - Clear liquids while awaiting identification of esophageal mass Coronary artery disease, POA, chronic. Active - History of 21 stents placed, greater than 1 year ago, prior CABG - Hold aspirin and Plavix for possible due to GI bleed - Will restart Warfarin to titrate up to therapeutic INR due to Mechanical valve , holding Lovenox due to drop in H/H in post procedural period - Spoke with patient's Lead Systems Architect Dr. Valdez based in [place], he agrees with the above plan, this is the provider who performed many of the patient's extensive cardiac surgeries Aortic stenosis, s/p mechanical aortic valve replacement in 2001 on chronic anticoagulation, POA, chronic. Active - Warfarin as above Paroxysmal atrial fibrillation, POA, chronic. Active - Patient is on chronic warfarin therapy - Patient with rates in 110-120 range, sinus tachycardia - Conversion to Afib Aflutter 01/25/17, spontaneous conversion - Will initiate beta blockage to attempt to control rate Chronic kidney disease likely stage IIIB, POA, chronic. Active - Creatinine 1.9 likely at presentations, baseline is around 1.7. Patient received 1 L normal saline IV in the ED - Avoid nephrotoxic insults when possible - Trended back to baseline prior to DC Hypothyroid, Continued levothyroxine 88 g daily Diabetes mellitus type II. - Lispro sliding scale, held Glimepiride due to reduced PO intake and risk of hypoglycemia Essential tremor - History of gamma knife ablation - Continue propranolol Hyperlipidemia. - Resume Statin on DC Hypertension. - Resume home HTN medications on DC . Exam Vital Signs (Last) Date Time Temp Pulse Resp B/P Pulse Ox O2 Delivery O2 Flow Rate FiO2 01/28/17 12:09 36.5 86 16 158/70 97 Room Air 01/25/17 17:40 8 Exam Gen: A/O x3 pleasant cooperative gentleman in NAD Neck: supple, no thyromegaly, no JVD HEENT: PERRL, EOMI, no scleral icterus, no conjunctival pallor CV: RRR, systolic blowing murmur, audible click from prosthetic valve, no rubs or gallops Resp: Lungs CTA BL, no wheezing rales or rhonchi Abd: Soft, mild tenderness to palpation in RUQ, BS +4Q, no rebound or guarding Extr: No clubbing, cyanosis, or edema Neuro: CN 2-12, no focal neurologic deficit Psych: Patient with pleasant and appropriate mood and affect. Test 01/22/17 15:45 01/22/17 18:30 01/22/17 22:00 01/23/17 04:15 Reticulocyte Count,Calculated 1.1% (0.6-2.6) Iron Level 54ug/dL (35-150) Total Iron Binding Capacity 285ug/dL (250-450) Percent Iron Saturation 19%sat (15-50) Unsaturated Iron Binding 230.7ug/dL Ferritin 96ng/mL (30-400) Troponin T < 0.010ug/L (0.0-0.011) Urine Color Yellow (YELLOW) Urine Appearance Clear (CLEAR,HAZY) Urine pH 5.5 (5.0-8.0) Urine Specific Conrad 1.015 (1.003-1.035) Urine Protein Negativemg/dL (NEG,TRACE) Urine Glucose (UA) Negativemg/dL (NEGATIVE) Urine Ketones Negativemg/dL (NEGATIVE) Urine Occult Blood Negative (NEGATIVE) Urine Nitrite Negative (NEGATIVE) Urine Bilirubin Negative (NEGATIVE) Urine Urobilinogen Normalmg/dL (NORMAL) Urine Leukocyte Esterase Negative (NEGATIVE) Urine RBC 0-2/hpf (0-2) Urine WBC 0-5/hpf (0-5) Urine Epithelial Cells Occasional/hpf (NONE-MOD) Urine Crystals None seen (NONE SEEN) Urine Bacteria None/hpf (NONE-FEW) Urine Hyaline Casts None/lpf (NONE) Urine Granular Casts None seen (NONE SEEN) Urine Waxy Casts None seen (NONE SEEN) Urine Red Blood Cell Casts None seen (NONE SEEN) Urine White Blood Cell Casts None seen (NONE SEEN) Urine Mucus None seen (None Seen) Urine Trichomonas None seen (NONE SEEN) Urine Yeast None (NONE SEEN) Urine Culture Reflexed Not indicated Activated Partial Thromboplast Time 34.1sec (22.8-33.0) Thyroid Stimulating Hormone (TSH) 0.817uIU/mL (0.450-4.500) Test 01/25/17 02:30 01/28/17 02:46 01/28/17 11:00 Carcinoembryonic Antigen 8.7ng/mL (0.0-4.7) White Blood Count 10.0th/mm3 (3.8-10.1) Red Blood Count 3.00mil/mm3 (4.40-5.80) Mean Corpuscular Volume 92.0fL (81-100) Mean Corpuscular Hemoglobin 29.7pg (27.0-35.0) Mean Corpuscular Hemoglobin Concent 32.2% (32.0-37.0) Red Cell Distribution Width 14.8% (12.3-15.4) Platelet Count 308bil/L (150-400) Neutrophils (%) (Auto) 76.9% (40-74) Lymphocytes (%) (Auto) 10.1% (14-46) Monocytes (%) (Auto) 10.6% (4-12) Eosinophils (%) (Auto) 2.0% (0-5) Basophils (%) (Auto) 0.3% (0-3) Prothrombin Time 16.4sec (8.1-12.5) Prothromb Time International Ratio 1.52ratio Sodium Level 137mEq/L (134-144) Potassium Level 4.3mEq/L (3.5-5.2) Chloride Level 102mEq/L (97-108) Carbon Dioxide Level 22mmol/L (18-29) Blood Urea Nitrogen 16mg/dL (8-27) Creatinine 1.52mg/dL (0.76-1.27) Estimat Glomerular Filtration Rate 49mL/min (>59) Glucose Level 105mg/dL (60-99) Calcium Level 8.6mg/dL (8.5-10.1) Phosphorus Level 3.1mg/dL (2.5-4.9) Magnesium Level 1.7mg/dL (1.6-2.6) Total Bilirubin 1.0mg/dL (0.0-1.2) Aspartate Amino Transf (AST/SGOT) 38U/L (0-50) Alanine Aminotransferase (ALT/SGPT) 33U/L (0-44) Alkaline Phosphatase 184U/L (25-160) Total Protein 6.1g/dL (6.4-8.4) Albumin 3.6g/dL (3.4-5.0) Hemoglobin 9.5g/dL (13.8-17.2) Hematocrit 29.5% (41.0-50.0) Discharge Medications Discharge Medications Ascorbic Acid (Vitamin C) 1,000 Mg Tab.chew 1,000 MG PO QAM (Reported) Atorvastatin (Lipitor) 20 Mg Tablet 20 MG PO HS (Reported) Calcitriol (Rocaltrol) 0.25 Mcg Capsule 0.25 MG PO Mon, Wed, Fri (Reported) Cetirizine Chew (Cetirizine Chew) 10 Mg Tab.chew 10 MG PO HS (Reported) Ergocalciferol (Vitamin D2) (Vitamin D) 400 Unit Tablet 400 UNIT PO QAM ( Reported) Ezetimibe (Zetia) 10 Mg Tablet 10 MG PO HS (Reported) Ferrous Gluconate (Ferrous Gluconate) 324 Mg Tab 324 MG PO BIDWM (Reported) Levothyroxine (Levothyroxine) 88 Mcg Tablet 88 MCG PO QAM (Reported) Losartan Potassium (Losartan Potassium) 50 Mg Tablet 50 MG PO HS (Reported) LOSARTAN 25 MG IN AM, LOSARTAN 50 MG AT HS Losartan Potassium (Losartan Potassium) 25 Mg Tablet 25 MG PO QAM (Reported) LOSARTAN 25 MG IN AM, LOSARTAN 50 MG AT HS Davis-3/Dha/Epa/Fish Oil (Fish Oil 1,000 mg Softgel) 1 Each Capsule 1 EACH PO BIDWM (Reported) Pantoprazole DR (Pantoprazole DR) 40 Mg Tablet.dr 40 MG PO BIDAC Prescribed by: CORTEZ CHEN MD Polyethylene Glycol 3350 (Miralax) 17 Gm Powd.pack 17 GM PO DAILY Prescribed by: LISA REDDY DO Propranolol ER (Inderal LA) 80 Mg Capsule 80 MG PO HS (Reported) Pumpkin Seed Oil/Saw Ely (Saw Ely 160 mg Softgel) 160 Mg Capsule 160 MG PO QAM (Reported) Ubidecarenone/Vit E Acetate (Co Q-10 100 mg Softgel) 1 Each Capsule 100 MG PO QAM (Reported) Warfarin Sodium (Warfarin Sodium) 5 Mg Tablet 5 MG PO DAILY EXCEPT TUE/DORIS ( Reported) WARFARIN 7.5 MG TUES/TH AND 5 MG ALL OTHER DAYS Warfarin Sodium (Warfarin Sodium) 5 Mg Tablet 7.5 MG PO TUES/THURS (Reported) WARFARIN 7.5 MG TUES/TH AND 5 MG ALL OTHER DAYS As needed Sennosides (Senna) 8.6 Mg Tablet 8.6 MG PO DAILY PRN PRN For Constipation Prescribed by: LISA REDDY DO Additional med instructions Please take 7.5 mg of Warfarin tomorrow, and then follow up with the INR clinic on Monday. Followup Plan Disposition: Home with close outpatient follow up. Follow-up plan Please follow up with Dr. Katz as soon as possible following return of the results of your biopsies. You should follow up with Dr. Sheriff after your appointment with Dr. Katz. A further follow up appointment with the [facility] residency clinic would be helpful to help coordinate your various specialties. Discharge Diet: Other (Mostly liquid soft diet as tolerated until you can be seen by Dr. Sheriff. Soft protein rich foods such as eggs should not be a problem.) Discharge Activity: Limited until seen by PCP (Do not engage in any activities that will cause you to strain yourself, I will send you home with a stool softener so you don't have to strain on the toilet.) Follow-up Provider: Isabel Katz MD Follow-up with PCP in: 1 week Provider: Carroll Sheriff MD Follow-up in: 2 weeks Mid-level Provider: [facility] Follow-up with Mid-level in: 2 weeks Time spent Greater than 35 minutes Attending Statement The patient was seen and examined together with Dr. Reddy on 01/28/17 and I have added additional information to the note above. copies to: Isabel Katz MD; [facility]; Carroll Sheriff MD, David E DO Jan 28, 2017 13:40 Marixa Brown DO Jan 28, 2017 14:40
--- NOTE | 2017-01-28 16:01 | NUR ---
Discharge, Multidisciplinary Communication 0843 - The Pharmacy called wondering if the plan was to continue her coumadin. Told them that this nurse had overheard Dr. Reddy talking to the pt and the plan was to continue the Coumadin, but discontinue the Lovenox. 0930 - Discussed his care with Dr. Brown and the rest of the multidisciplinary care team during morning rounds. She said that he was refusing Hospice and was looking into palliative chemotherapy. The plan was to monitor his INR and H/H and likely discharge in a couple of days. 1120 - Called Pharmacist Adalid and asked that Regular insulin could be sent up as he only had Lispro in his medication drawer. It was sent up and administered according to the protocol. 1435 - Called the Pharmacy as his Coumadin was not showing up in either [facility]. They said it was timed wrong, that it would be fixed, and to try and pull it again in a few minutes. 1500 - Was discussing his discharge instructions with him when he and his had a few questions. They wondered if he might be able to get a copy of a labs and wondered why his diabetic medication was discontinued. Spoke to Dr. Reddy about his diabetic medication and he said there were concerns with him eating so little that his blood glucose would drop and that there was a risk of kidney damage with some of the medication. Griselda the Shoemaker Apprentice said she could print out the labs for him as long as he signed a release form. Told the and pt about this and they were appreciative. Dr. Reddy came by a few minutes later to further explain things to them. 1505 - Called the Pharmacy again as the coumadin was still not showing up in the [facility]. They said they would tube it up which it was and was given. 1520 - He discharged at this time after having his two IVs and telemetry discontinued intact. He took his belongings with him. The discharge paperwork (instructions, care notes) were discussed with and given to him. Dr. Reddy said he sent the prescriptions electronically, but that the medications could also be purchased over the counter. The lab results were given to him after he signed the release form. He and his thanked staff for all their care. He was escorted to the curb outside the hospital by this nurse and got into a car that his daughter was driving.
--- NOTE | 2017-02-02 09:44 | PATH ---
SURGICAL PATHOLOGY Attending Physician:Catia Galindo CASE STATUS: Signed Out PATIENT NAME: JAIDEN RODAS PID: [id number] : 1950 DATE COLLECTED:01/25/2017 00:00 SPECIMEN: 1: Esophagus, Biopsy 2: Liver, Needle Biopsy CLINICAL HISTORY: MASS OF GASTROESOPHAGEAL JUNCTION, GASTROESOPHAGEAL LESION, METASTATIC LIVER DISEASE 1). GASTROESOPHAGEAL JUNCTION BIOPSY (ASSESS FOR RENAL CELL CARCINOMA) 2). CORE LIVER BIOPSY FINAL DIAGNOSIS: 1.ESOPHAGUS, BIOPSY: METASTATIC CARCINOMA CONSISTENT WITH POORLY-DIFFERENTIATED RENAL CELL CARCINOMA. 2.LIVER BIOPSY: METASTATIC CARCINOMA, MOST CONSISTENT WITH METASTATIC, POORLY-DIFFERENTIATED RENAL CELL CARCINOMA. [id number] NOTE: As part of a routine quality tech, Dr. Lindsay has also reviewed this case and agrees with the diagnosis. The case will be sent for outside consultation to confirm the diagnosis. GROSS DESCRIPTION: Received are two formalin-filled containers, each labeled with the patient's name. 1. Received in formalin, labeled with the patient's name and "GE junction" are four fragments of wright soft tissue ranging in size from less than 0.1 by less than 0.1 by less than 0.1 cm to 0.1 x 0.1 x 0.1 cm. All fragments are totally submitted in cassette 1A. 2. Received in formalin, labeled with the patient's name and "unspecified" are multiple fragments of light wright needle core biopsy tissue ranging in size from 0.4 by less than 0.1 by less than 0.1 cm to 0.7 by less than 0.1 by less than 0.1 cm. The fragments are wrapped in tissue and totally submitted in cassette 2A. ([id number]) MICRO DESCRIPTION: 1. The submucosa is infiltrated by a malignant neoplasm exhibiting crush artifact. It consists of small cells with minimal cytoplasm. Immunocytochemistry is done to chararacterize the cells. Sections, along with appropriate controls, are incubated with the following antibodies: CK7: Positive CD10: [id number]: Negative Synaptophysin: Negative The findings are similar to those found in the liver biopsy (see below). 2. Irregular oval nests of malignant epithelioid cells are surrounded by dense fibrous connective tissue. Areas of necrosis are present. Poorly-formed tubular structures are also found. The malignant cells have oval hyperchromatic nuclei and minimal amounts of cytoplasm. Immunocytochemistry is done to characterize the cells. Sections, along with appropriate controls, are incubated with the following antibodies: CK7: Positive CD10: PositiveCK5/6: [id number]: Negative TTF-1: NegativeSynaptophysin: Negative PSA: Negative BARBARA-3: Negative The findings are consistent with a metastatic poorly-differentiated renal cell carcinoma. This test was developed and its performance characteristics determined by [facility]. It has not been cleared or approved by the U. S. Food and Drug Administration. The FDA has determined that such clearance or approval is not necessary. This test is used for clinical purposes. It should not be regarded as investigational or for research. ICD-9 CODES: CPT CODES: 1: 35299, 59379, 86857, 15782, 62337 2: 52145, 89913, 68467, 88834, 05940, 06583, 92396, 58634, 42278 Electronically Signed Out Dallin Jimenez MD [facility] Pathology [facility] [address], [place] [address] Technical component performed at [facility], [address], [place], [address]
--- NOTE | 2017-02-08 12:58 | NUR ---
Palliative care note D/A: Phone call from pt spouse Yoni, on 02/06/17. She wonders if pt might be able to have an appt to see PC as he is needing assistance with pain and symptom management. She notes that he is seeing Dr. Katz, has been down to [facility] and currently awaiting biopsy results. He also does not yet have a PCP. This worker notes that [facility] would be happy to see pt, explains process and indicates that [facility] can ask Dr. Katz for a referral. Phone call to Karri HOLMAN [facility]. Dr. Katz out of office this week and returns to [facility] office on 02/15/17. Karri will discuss referral with him at that time. Have left return message for spouse indicating that [facility] will hear from Dr. Katz next week after 02/14/17 and that this worker will follow up with spouse at that time. Have emailed to Karri, copy of referral form. P: Palliative care to follow. Radha GAMINO, CCM
== END 2017-01-28 15:17 | disposition home or self-care (01) | DRG 375 ==
LOC: SED 15:33 → OBSVTOIN 20:29 → OSC 20:29 → PCC 01-23 17:48
PROVIDERS: ADMIT Internal Medicine; ATTEND Internal Medicine
PROC: 0DJ08ZZ Inspection of Upper Intestinal Tract, Via Natural or Artificial Opening Endoscopic (ICD-10-PCS; 2017-01-23)
PROC: 30233N1 Transfusion of Nonautologous Red Blood Cells into Peripheral Vein, Percutaneous Approach (ICD-10-PCS; 2017-01-24)
PROC: 30233K1 Transfusion of Nonautologous Frozen Plasma into Peripheral Vein, Percutaneous Approach (ICD-10-PCS; 2017-01-24)
PROC: 0JH60XZ Insertion of Tunneled Vascular Access Device into Chest Subcutaneous Tissue and Fascia, Open Approach (ICD-10-PCS; 2017-01-25)
PROC: 02HV33Z Insertion of Infusion Device into Superior Vena Cava, Percutaneous Approach (ICD-10-PCS; 2017-01-25)
PROC: 30233R1 Transfusion of Nonautologous Platelets into Peripheral Vein, Percutaneous Approach (ICD-10-PCS; 2017-01-25)
PROC: 30233K1 Transfusion of Nonautologous Frozen Plasma into Peripheral Vein, Percutaneous Approach (ICD-10-PCS; 2017-01-25)
PROC: 0DB48ZX Excision of Esophagogastric Junction, Via Natural or Artificial Opening Endoscopic, Diagnostic (ICD-10-PCS; principal; 2017-01-25 14:15)
PROC: 0FB13ZX Excision of Right Lobe Liver, Percutaneous Approach, Diagnostic (ICD-10-PCS; 2017-01-26)
PROC: 30233N1 Transfusion of Nonautologous Red Blood Cells into Peripheral Vein, Percutaneous Approach (ICD-10-PCS; 2017-01-27)
DX: C78.89 Secondary malignant neoplasm of other digestive organs (principal); N17.9 Acute kidney failure, unspecified; D62 Acute posthemorrhagic anemia; C64.1 Malignant neoplasm of right kidney, except renal pelvis; K92.2 Gastrointestinal hemorrhage, unspecified; I25.10 Atherosclerotic heart disease of native coronary artery without angina pectoris; Z95.1 Presence of aortocoronary bypass graft; Z95.5 Presence of coronary angioplasty implant and graft; Z87.891 Personal history of nicotine dependence; I48.0 Paroxysmal atrial fibrillation; Z79.01 Long term (current) use of anticoagulants; I12.9 Hypertensive chronic kidney disease with stage 1 through stage 4 chronic kidney disease, or unspecified chronic kidney disease; E11.22 Type 2 diabetes mellitus with diabetic chronic kidney disease; N18.3 Chronic kidney disease, stage 3 (moderate); G25.0 Essential tremor; Z95.2 Presence of prosthetic heart valve; E78.5 Hyperlipidemia, unspecified; Z79.02 Long term (current) use of antithrombotics/antiplatelets; Z79.82 Long term (current) use of aspirin; Z85.72 Personal history of non-Hodgkin lymphomas; E03.9 Hypothyroidism, unspecified; R63.4 Abnormal weight loss; Z68.26 Body mass index [BMI] 26.0-26.9, adult; C78.7 Secondary malignant neoplasm of liver and intrahepatic bile duct

== ENCOUNTER 2017-05-01 08:59 | Emergency (ER) | payer MEDICARE, OTHER ==
[~2017-05-01] VITALS: Ht 188 cm; Wt 75.0 kg
[~2017-05-01 08:59] MED LIST changes: -ASCO100089 PO; -ASPI-973 PO; +CETI10TA20 PO; +CHOL400T PO; -CLOP75TA3 PO; -ERGO400T3 PO; -GLIM1TAB PO; +LOSA25TA21 PO; -PROP80CA PO
[2017-05-01 09:03] VITALS: BP 136/67; PULSE 84; RESP 18; O2SAT 100
--- NOTE | 2017-05-01 09:28 | ED.REPORT ---
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 The pain has been present for over one month but has been increasing over the last three weeks. This pain is present in the upper abdomen radiating into the pt's back and flanks, and is exacerbated by standing and movement. This is accompanied by nausea and vomiting over the last few weeks. He also admits to pain in his chest, but does not suspect that this pain is cardiac. The pt denies fever, hematochezia, melena/tarry stools or cough. He has been taking oxycodone and methadone for breakthrough pain, but this has not been significantly relieving his symptoms. The pt suspects that his pain is due to side effects of the methadone. Per the pt's oncologist, the pt's tumors have been shrinking. Dr. Katz does not believe that the pt's current pain is due to his cancer. The pt last had an oncology appointment four day ago, at which point he was informed that his tumors are shrinking. Nursing Notes Stated Complaint: SEVERE ABDOMINAL PAIN Chief Complaint: General Complaint Nursing Notes Reviewed: Yes Allergies: Coded Allergies: No Known Allergies (Unverified , 01/22/17) Scheduled Atorvastatin (Lipitor) 20 Mg Tablet 20 MG PO HS Calcitriol (Rocaltrol) 0.25 Mcg Capsule 0.25 MG PO Mon, Mon, Mon Cetirizine Chew (Cetirizine Chew) 10 Mg Tab.chew 10 MG PO HS Cholecalciferol (Vitamin D3) (Vitamin D3) 400 Unit Tablet 400 UNIT PO DAILY Ezetimibe (Zetia) 10 Mg Tablet 10 MG PO HS Ferrous Gluconate (Ferrous Gluconate) 324 Mg Tab 324 MG PO BIDWM Levothyroxine (Levothyroxine) 88 Mcg Tablet 88 MCG PO QAM Losartan Potassium (Losartan Potassium) 50 Mg Tablet 50 MG PO HS LOSARTAN 25 MG IN AM, LOSARTAN 50 MG AT HS Losartan Potassium (Losartan Potassium) 25 Mg Tablet 25 MG PO QAM LOSARTAN 25 MG IN AM, LOSARTAN 50 MG AT HS [place]-3/Dha/Epa/Fish Oil (Fish Oil 1,000 mg Softgel) 1 Each Capsule 1 EACH PO BIDWM Pantoprazole DR (Pantoprazole DR) 40 Mg Tablet.dr 40 MG PO BIDAC Pumpkin Seed Oil/Saw Duryea (Saw Duryea 160 mg Softgel) 160 Mg Capsule 160 MG PO QAM Ubidecarenone/Vit E Acetate (Co Q-10 100 mg Softgel) 1 Each Capsule 100 MG PO QAM Warfarin Sodium (Warfarin Sodium) 5 Mg Tablet 5 MG PO DAILY EXCEPT E/DORIS WARFARIN 7.5 MG TUES/TH AND 5 MG ALL OTHER DAYS Warfarin Sodium (Warfarin Sodium) 5 Mg Tablet 7.5 MG PO TUES/THURS WARFARIN 7.5 MG TUES/TH AND 5 MG ALL OTHER DAYS General Time Seen by MD: 09:20 Chief Complaint Abdominal pain Hx Obtained From: Patient Arrived By: Walk-in Sudden in Onset?: No Onset Occurred: More than a week ago... Symptom Duration: Intermittent Recent Healthcare: Recent doctor visit Similar Sx Previous: No Past Medical History Past Medical History 1. Atrial fibrillation. 2. Diabetes mellitus type II. 3. Hyperlipidemia. 4. Hypertension. 5. Hypothyroidism. 6. Depression and anxiety. 7. Hodgkin's lymphoma in remission. 8. Essential tremor. 9. Skin cancer. 10. Renal failure 11. GI bleed 12. Metastatic small cell neuroendocrine carcinoma involving bilateral hepatic lobes and right renal pelvis Reports: Coronary artery disease Past Surgical History 1. 21 cardiac stents. 2. CABG (2001). 3. [address] Shravan's aortic valve replacement. 4. Gamma knife radiation for essential tremor. Family History Mother with breast cancer. Father with diabetes mellitus type II. Sister who is healthy. 3 daughters one of which has an essential tremor. Smoking History Former Smoker Social History Alcohol Use: "Social" Other Social History: Good social support, , Local resident Ambulatory Status Independent Review of Systems denies melena Full Review of Systems Constitutional: Denies: Fever Respiratory: Denies: Non-productive cough, Shortness of breath Cardiovascular: Reports: Chest pain GI: Reports: Abdominal pain, Nausea, Vomiting, Denies: Bloody/tarry stool, Hematochezia Male: Reports Flank pain Musculoskeletal: Reports: Back pain, Denies: Neck pain Skin: Denies Rash Complete sys rev & neg: except as marked. Physical Exam Vital Signs Vital Signs Date Time Temp Pulse Resp B/P Pulse Ox O2 Delivery O2 Flow Rate FiO2 05/01/17 12:57 82 17 125/47 98 Room Air 05/01/17 09:03 36.0 84 18 136/67 100 Room Air Initial VS: Reviewed General/Constitutional: Awake, Alert Head / Eyes: Atraumatic, Normocephalic, PERRL, EOMI ENT: Atraumatic, Airway patent, Mucous membranes moist Neck: Atraumatic, Supple, Full range of motion Respiratory / Chest: Atraumatic, Breath sounds NL, Breath sounds = bilat, No respiratory distress Cardiovascular: Heart rate NL, Regular rhythm harsh S2 click Abdomen: Atraumatic, Soft, No guarding, No rebound diffuse abdominal pain, most prominent in the RUQ Back: Atraumatic, Full range of motion, No CVA tenderness Upper Extremities Upper Extremity / MS: Atraumatic, Full range of motion Lower Extremity / Pelvis / MS: Atraumatic, Full range of motion Skin: Color NL, No rash, Warm, Dry Neurologic: Oriented X3, Speech NL, No motor deficits, No sensory deficits Psychiatric: Affect NL, Mood NL Interpretation & Diagnostics Interpretation & Diagnostics: US read per US metallurgical technician: no DVT Lab Results Interpretation Result Diagram: 05/01/17 1000 05/01/17 1000 Test 05/01/17 10:00 05/01/17 11:07 05/01/17 12:16 White Blood Count 10.7th/mm3 (3.8-10.1) Red Blood Count 3.78mil/mm3 (4.40-5.80) Hemoglobin 11.5g/dL (13.8-17.2) Hematocrit 35.9% (41.0-50.0) Mean Corpuscular Volume 95.0fL (81-100) Mean Corpuscular Hemoglobin 30.4pg (27.0-35.0) Mean Corpuscular Hemoglobin Concent 32.0% (32.0-37.0) Red Cell Distribution Width 18.2% (12.3-15.4) Platelet Count 319bil/L (150-400) Neutrophils (%) (Auto) 69.7% (40-74) Lymphocytes (%) (Auto) 8.0% (14-46) Monocytes (%) (Auto) 20.3% (4-12) Eosinophils (%) (Auto) 0.6% (0-5) Basophils (%) (Auto) 1.1% (0-3) Prothrombin Time 19.6sec (8.1-12.5) Prothromb Time International Ratio 1.81ratio Sodium Level 132mEq/L (134-144) Potassium Level 5.3mEq/L (3.5-5.2) Chloride Level 92mEq/L (97-108) Carbon Dioxide Level 23mmol/L (18-29) Blood Urea Nitrogen 12mg/dL (8-27) Creatinine 1.50mg/dL (0.76-1.27) Estimat Glomerular Filtration Rate 50mL/min (>59) Glucose Level 122mg/dL (60-99) Calcium Level 12.5mg/dL (8.5-10.1) Magnesium Level 1.7mg/dL (1.6-2.6) Total Bilirubin 0.5mg/dL (0.0-1.2) Aspartate Amino Transf (AST/SGOT) 47U/L (0-50) Alanine Aminotransferase (ALT/SGPT) 28U/L (0-44) Alkaline Phosphatase 271U/L (25-160) Total Protein 8.0g/dL (6.4-8.4) Albumin 4.0g/dL (3.4-5.0) Lipase 13U/L (13-60) Hold Betancourt Top Tube Received (Received) Urine Color Straw (YELLOW) Urine Appearance Hazy (CLEAR,HAZY) Urine pH 7.0 (5.0-8.0) Urine Specific [place] 1.015 (1.003-1.035) Urine Protein 30mg/dL (NEG,TRACE) Urine Glucose (UA) Negativemg/dL (NEGATIVE) Urine Ketones Negativemg/dL (NEGATIVE) Urine Occult Blood Negative (NEGATIVE) Urine Nitrite Negative (NEGATIVE) Urine Bilirubin Negative (NEGATIVE) Urine Urobilinogen Normalmg/dL (NORMAL) Urine Leukocyte Esterase Negative (NEGATIVE) Urine RBC 0-2/hpf (0-2) Urine WBC 0-5/hpf (0-5) Urine Epithelial Cells Occasional/hpf (NONE-MOD) Urine Crystals None seen (NONE SEEN) Urine Bacteria None/hpf (NONE-FEW) Urine Hyaline Casts Occasional/lpf (NONE) Urine Granular Casts None seen (NONE SEEN) Urine Waxy Casts None seen (NONE SEEN) Urine Red Blood Cell Casts None seen (NONE SEEN) Urine White Blood Cell Casts None seen (NONE SEEN) Urine Mucus None seen (None Seen) Urine Trichomonas None seen (NONE SEEN) Urine Yeast None (NONE SEEN) Urinalysis Comment None Urine Culture Reflexed Not indicated Troponin T 0.010ug/L (0.0-0.011) X-Ray Abdominal Interpretation IMPRESSION: 1. Nonspecific nonobstructive bowel gas pattern. 2. Hepatomegaly. Dictated by: Roddy Squires M.D. on 05/01/2017 at 10:23 Approved by: Roddy Squires M.D. on 05/01/2017 at 10:30 Interpretation / Wet Read by: Interpret - Radiologist Re-Eval/Medical Decision Med Decision/Clinical Course 66-year-old male history of metastatic neuroendocrine tumor with liver and kidney metastasis presenting with chronic abdominal pain for several months. He reports it is worse on standing up. He denies any chest pain and is not worse with exertion. X-ray consistent with constipation. Right upper quadrant ultrasound with gallstones not cholecystitis. Labs are unremarkable. Troponins are negative. He has follow-up cardiology. He will follow up with general surgery for his gallstones. He will follow-up with his oncologist. He will take MiraLAX and enemas for his constipation. Return precautions given. Source of Hx: Old records Time of Eval: 11:55 Patient Status: Condition improved Re-Evaluation/Progress Note: Pt rechecked, who is comfortable. The diagnosis and plan for discharge are discussed. The pt understands and agrees with the plan. All questions are addressed at this time. Consultation : Referral / Consult Name: Carroll Sheriff MD Call Returned at: 11:59 [place]: Agrees with eval, Agrees with plan Note: Consulted with Dr. Sheriff, GI, regarding pt's case. Dr. Sheriff agrees with the evaluation and plan. He will follow up with the pt on an outpatient basis. Counseled Regarding: Diagnosis, Lab results, Need for follow-up, When/why to return to ED Discharge & Departure Primary Impression: Gallstones Additional Impressions: Constipation Constipation type: unspecified constipation type Qualified Code: K59.00 - Constipation, unspecified Chronic abdominal pain Disposition: Home Discharge Condition All VS Reviewed: Yes Condition: Stable Patient Instructions: Chronic Abdominal Pain (ED), Constipation (ED) Additional Instructions: Thank you for entrusting us with your care. Your evaluation was reassuring. Take MiraLAX as directed to relieve your constipation. Call your primary care physician and building cleaning supervisor to arrange a follow up appointment in the next several days. Also follow up with general surgery regarding your gallstones. Return to the emergency department if you develop any new or worsening symptoms such as worsening pain, nausea, vomiting, fever or chills. Referrals: Isabel Katz MD Scribe Attestation Portions of this note were transcribed by Damaris Stallworth. I, Dr. Whittington personally performed the history, physical exam and medical decision-making; I reviewed and confirmed the accuracy of the information in the transcribed note. copies to: Isabel Katz MD, Ben M MD May 01, 2017 09:28 DAMARIS STALLWORTH May 01, 2017 09:46
[2017-05-01] MEDS ORDERED: Ondansetron 2 mg/mL 2 mL Inj IVPUSH PRN (09:45)
[2017-05-01] MEDS ORDERED: 0.9% Sodium Chloride 500 ML IV ONE (09:45)
[2017-05-01] MEDS ORDERED: HYDROmorphone 1 mg/mL Inj IVPUSH PRN (09:45)
[2017-05-01 10:08] LABS: BASOPHILS % (AUTO) 1.1 % (0-3); EOSINOPHILS % (AUTO) 0.6 % (0-5); MONOCYTES % (AUTO) 20.3 % (4-12); Mean Corpuscular Hemoglobin 30.4 pg (27.0-35.0); NEUTROPHILS % (AUTO) 69.7 % (40-74); Platelet Count 319 bil/L (150-400)
[2017-05-01 10:22] LABS: INR 1.81 ratio
[2017-05-01 10:29] LABS: Magnesium 1.7 mg/dL (1.6-2.6)
--- NOTE | 2017-05-01 10:32 | DRSVH ---
PROCEDURE: X-RAY ACUTE ABDOMINAL SERIES ([id number]) INDICATIONS: Abdominal pain. TECHNIQUE: One view chest and two views of the abdomen were acquired. COMPARISON: [facility], CT, CT CHEST ABD PELVIS W CON, 04/20/2017, 10:12. FINDINGS: Surgical changes and devices: Postsurgical changes in the right apex. There is a Port-A-Cath on the l eft. Sternotomy and a prosthetic heart valve. The most superior and inferior sternal wires are fractu red. Chest: Lungs are clear. Heart size is normal. No pleural effusions. No pneumoperitoneum. Abdomen: There is abundant colonic gas and paucity of small bowel gas. No suspicious calcifications. Liver is enlarged. Bones: No suspicious bony lesions. IMPRESSION: 1. Nonspecific nonobstructive bowel gas pattern. 2. Hepatomegaly. Dictated by: Roddy Squires M.D. on 05/01/2017 at 10:23 Approved by: Roddy Squires M.D. on 05/01/2017 at 10:30
[2017-05-01 12:35] LABS: APPEARANCE,URINE HAZY (CLEAR,HAZY); COLOR,URINE STRAW (YELLOW); OCCULT BLOOD,URINE NEGATIVE (NEGATIVE); UROBILINOGEN,URINE NORMAL (NORMAL)
[2017-05-01 12:57] VITALS: BP 125/47; PULSE 82; RESP 17; O2SAT 98
--- NOTE | 2017-05-01 15:46 | DRSVH ---
PROCEDURE: US ABDOMEN, LIMITED ([id number]) INDICATIONS: RUQ TECHNIQUE: Real-time focused scanning was performed of the abdomen, with image documentation. COMPARISON: [facility] Ultrasound, US, US ABDOMEN, 04/13/2017, 9:04. [facility] ital, CT, CT CHEST ABD PELVIS W CON, 04/20/2017, 10:12. FINDINGS: Liver is diffusely heterogeneous and multiple hypoechoic masses redemonstrated similar to p rior examination. 4 mm dependent gallstone present. No gallbladder wall thickening or pericholecyst ic fluid. IMPRESSION: 1. Multiple hepatic masses consistent with metastatic disease. 2. Cholelithiasis without evidence for cholecystitis. Dictated by: Abelardo Urena RRA Interpreted: Roddy Squires MD on 05/01/2017 at 12:41 Approved by: Roddy Squires M.D. on 05/01/2017 at 15:44
== END 2017-05-01 12:58 | disposition home or self-care (01) ==
LOC: SED 08:59
DX: K80.20 Calculus of gallbladder without cholecystitis without obstruction (principal); K59.00 Constipation, unspecified; I12.9 Hypertensive chronic kidney disease with stage 1 through stage 4 chronic kidney disease, or unspecified chronic kidney disease; E11.22 Type 2 diabetes mellitus with diabetic chronic kidney disease; N18.9 Chronic kidney disease, unspecified; I25.10 Atherosclerotic heart disease of native coronary artery without angina pectoris; I48.91 Unspecified atrial fibrillation; E78.5 Hyperlipidemia, unspecified; E03.9 Hypothyroidism, unspecified; F41.8 Other specified anxiety disorders; Z95.5 Presence of coronary angioplasty implant and graft; Z95.1 Presence of aortocoronary bypass graft; Z79.01 Long term (current) use of anticoagulants; Z87.891 Personal history of nicotine dependence
CPT/HCPCS: 36415; 74022; 76705; 80053; 81000; 83690; 83735; 84484; 85025; 85610; 96361; 96374; 96375; 99285; J1170; J2405; J7030